=== PATIENT | male | born 1940 | race Caucasian/White ===

== ENCOUNTER 2024-10-15 11:19 | Inpatient (IN) | payer OTHER, SELFPAY ==
[2024-10-15] VITALS (13 sets, daily range): BP systolic 94–195; BP diastolic 53–100; BMI 27.1
--- NOTE | 2024-10-15 08:59 | ED.GENMED ---
History of Present Illness
General
Chief Complaint: Breathing Problem
Time Seen by Provider: 10/15/24 08:46
History of Present Illness
History of Present Illness:
84-year-old male with history of dementia, obstructive uropathy with chronic indwelling suprapubic catheter, CAD, hypertension, CVA with left-sided weakness presenting to the emergency department for apparent nausea and vomiting. Patient presents
by medics from nursing facility, was called for nausea and vomiting. On medics arrival, was noted to be hypoxic and tachycardic. They felt that he had bilateral wheezing, started him on DuoNebs. And route, on monitor, reading 'STEMI ', with
additional concern for cardiac event. For this reason medics had given aspirin. Patient on arrival is very limited historian. Patient only nodding yes and no to questioning. No additional history obtained at this time.
Phy Exam
Physical Exam
Physical Exam:
General: no clinical signs of dehydration, nontoxic and in no acute distress
HEENT: protecting airway
Neck: appears supple
CV: Tachycardic, regular rhythm, no evidence of cyanosis
Resp: Mild tachypnea tachypnea with active cough. Rhonchorous breath sounds bilaterally
Abd: Soft and non-distended, no tenderness to palpation
Extremities: No deformities, no swelling
Neuro: alert, not presently verbally communicating. Left upper and lower extremity weakness which is reported as chronic
: deferred
Rectal: deferred
Psych: Normal affect
Skin: Intact
Scores
Heart Failure Risk
Heart Failure Risk Score: Not Applicable
Sepsis
Sepsis Screening
Sepsis Assessment: Severe Sepsis
Sepsis Screening: Lactate >/=4mmol/L
Sepsis Screen
Sepsis Screen: Severe Sepsis
Date: 10/15/24
Time: 16:22
Course
Orders/Labs/Results
Orders:
Orders
10/15/24 08:47
EKG [Electrocardiogram (*1)] Urgent
Reason for Study: Tachycardia
EKG- Treatment ONCE
10/15/24 08:55
Cardiac Monitoring- Treatment ONCE
IV Insert/Care/Rem.- Treatment PRN
O2 Therapy [RESP] Urgent
Titrate/Wean O2 to maintain O2 sat greater than (%): 93
Special Instructions: TO MAINTAIN CONTINUOUS O2 SATS > OR = 93%
Pulse Ox/cont/shift [RESP] Urgent
Quantity: 1
Special Instructions: CONTINUOUS
10/15/24 08:57
COVID-19 Antigen Urgent
Source: Nasal Swab
Complete Blood Count/With Diff Urgent
Comprehensive Metabolic Panel Urgent
Lactic Acid Q4H
Comment: ON ICE, CANCEL 2ND ORDER IF FIRST LACTIC ACID LEVEL <2
Prothrombin Time Urgent
Urinalysis Reflex To Culture Urgent
Date Specimen was Collected: 10/15/24
Time Specimen was Collected: 08:55
Urine Microscopic Reflex Cult Urgent
Blood Culture Q20M
FEI Source: Blood/Venous
Specimen Description:
Comment: Urgent from separate sites. If patient screens positive for possible sepsis
Influenza A+B Rapid Molecular Urgent
FEI Source: Nasal Swab
Specimen Description:
Urine Culture Urgent
FEI Source: U
Specimen Description:
Date Specimen was Collected: 10/15/24
Time Specimen was Collected: 08:55
0.9% Sodium Chloride 1000 ml [Nss] 1,000 ml IV BOLUS
Acetaminophen [Tylenol/Feverall] 650 mg RECTAL NOW STA
10/15/24 08:58
CR Chest - 2 Views Urgent
Comment:
Reason For Exam: sepsis, hypoxia
10/15/24 09:05
Blood Culture Q20M
FEI Source: Blood/Venous
Specimen Description:
Comment: Urgent from separate sites. If patient screens positive for possible sepsis
10/15/24 09:46
CT Abd/pelvis W Iv Cont Urgent
Comment:
Reason For Exam: sepsis, N/V
10/15/24 09:53
Cefepime HCl [Maxipime] 2,000 mg IV NOW STA
10/15/24 Lunch
NPO
Allow oral meds: No
Allow clear liquids: No
10/15/24 10:10
Vancomycin [Vancocin] 2,000 mg 0.9% Sodium Chloride 500 ml [Nss] 500 ml IV NOW
10/15/24 10:11
0.9% Sodium Chloride 1000 ml [Nss] 1,000 ml IV BOLUS
10/15/24 11:09
Admit/Transfer Patient As Directed
Co-Sign Provider:
Level of Care: Inpatient admission
Assign to:: IMU- Intermediate Care
Physician / Group: Dr Anders
Diagnosis: Sepsis
Reason for Hospitalization: Sepsis
Expected length of stay greater than two midnights?: Yes
ELOS- Estimated Length of Stay in days: 2
I certify the patient meets the requirements for IP care: Yes
PRN Pain Medication Management As Directed
May give lesser potent ordered pain med per pt: Yes
preference::
Protocol:: Medication orders for pain may be administered in a
manner that supports deferring to patient preference
when the pt is:
- Requesting an ordered lesser potent pain medication.
Least to most potent pain medications are defined
as: acetaminophen < NSAID < tramadol < opioids
(morphine, oxycodone, hydromorphone).
- Requesting a lesser dose of the same medication IF
ORDERED.
- Requesting a less intrusive route of administration
if both routes are prescribed by the provider (PO <
IV).
10/15/24 11:10
Code Status As Directed
Resuscitation Status: Full Code
10/15/24 12:49
Lactic Acid Q4H
Comment: ON ICE, CANCEL 2ND ORDER IF FIRST LACTIC ACID LEVEL <2
10/15/24 15:00
Bisacodyl [Dulcolax] 10 mg RECTAL [id number] PRN
Docusate W/Senna [Senokot-S] 1 tablet PO BIDPRN PRN
Lactated Ringers [Lr] 1,000 ml IV 100 mls/hr
Polyethylene Glycol Powder [Miralax] 17 grams PO DAILYPRN PRN
10/15/24 15:00
Activity As Directed
Activity Level: Out of Bed-Early Mobility
Vital Signs As Directed
Frequency: Per unit guidelines
DX Deep Vein Thrombosis Video Routine
10/15/24 18:00
Enoxaparin Sodium [Lovenox] 40 mg SC QPM
10/16/24 06:00
Basic Metabolic Panel IN AM
Complete Blood Count/With Diff IN AM
Abnormal Lab Results
10/15/24
08:57
WBC 22.4 H 10^3/uL
(4.8-10.8)
RBC 4.14 L 10^6/uL
(4.70-6.10)
Hgb 12.4 L g/dL
(13.0-18.0)
Hct 37.8 L %
(39.0-52.0)
MCHC 32.8 L g/dL
(33.0-37.0)
Abs Immat Gran (auto) 0.3 H 10^3/uL
(0-0.05)
Absolute Neuts (auto) 19.9 H 10^3/uL
(1.4-6.5)
Absolute Lymphs (auto) 0.7 L 10^3/uL
(1.2-3.4)
Absolute Monos (auto) 1.5 H 10^3/uL
(0.1-0.6)
Immature Gran % 1.3 H %
(0-0.5)
Neutrophils % 88.6 H %
(42.2-75.2)
Lymphocytes % 3.1 L %
(20.5-51.1)
BUN 25 H mg/dl
(9-20)
Glucose 285 H mg/dl
(70-99)
Lactic Acid 4.9 H* mmol/L
(0.7-2.0)
AST 89 H U/L
(17-59)
ALT 83 H U/L
(0-50)
Alkaline Phosphatase 218 H U/L
(38-126)
Ur Occult Blood Reflex 4+ A
(Negative)
Leukocyte Esterase Rfl 3+ A
(Negative)
Urine RBC 26-30 A /HPF
(0-2)
Urine WBC (Reflex) 30-40 A /HPF
(0-5)
Urine Bacteria (Reflex) Many A
(Negative)
Urine Glucose 3+ A
(Negative)
Urine Albumin (Reflex) 3+ A
(Neg - Trace)
10/15/24 08:57
10/15/24 08:57
Vital Signs
Initial and Last Documented VS:
Initial Vital Signs
Temp Pulse Resp BP Pulse Ox
102.5 F H 132 28 195/77 91
10/15/24 08:44 10/15/24 08:44 10/15/24 08:44 10/15/24 08:44 10/15/24 08:44
Last Documented Vital Signs
Temp Pulse Resp BP Pulse Ox
98.6 F 86 17 141/63 97
10/15/24 15:24 10/15/24 15:30 10/15/24 15:30 10/15/24 14:00 10/15/24 14:30
MDM/Problems Addressed
MDM/Problems Addressed:
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 Vital signs on arrival significant for hypertension,
hypoxia, tachycardia, fever.
On exam patient is in no significant distress, however is hypoxic, requiring supplemental O2. Patient also with active dry cough. Vital signs are meeting SIRS criteria with suspected source of infection being pulmonary given coughing and hypoxia.
Will send viral swabs and obtain chest x-ray imaging. IV access obtained, will send cultures and lactic acid. Will start patient IV fluids. Patient has an indwelling suprapubic catheter, additional hospital source of infection. Catheter was
exchanged for a new catheter. Will obtain urine specimen from new catheter. Prehospital noted to have nausea and vomiting and concern of abdominal distention. No tenderness to the abdomen, no present emesis. Lower suspicion for intra-abdominal
source. Medics were also concerned that patient was having a 'STEMI '. EKG obtained immediately upon patient's arrival, sinus tachycardia without STEMI criteria. Lower suspicion at this time.
09:40 -patient with significant leukocytosis and lactic acid of 4.9. Viral swabs are negative and chest x-ray without acute cardiopulmonary disease. Unclear source of infection at this time. Due to prehospital nausea and vomiting and elevated
lactic acid, will obtain CT abdominal imaging to rule out intra-abdominal source of infection. Will start broad spectrum abx.
10:50 -CT shows constipation with some rectal wall thickening, otherwise no acute abnormality. Urine does show some signs of infection. Plan for admission for sepsis, possible urinary source. called and updated
*EKG
Interpreted by ED Provider?: Yes
EKG Intrepretation Date: 10/15/24
EKG Intrepretation Time: 09:04
Interpretation: abnormal
Comparison EKG: no comparison EKG present
Heart Rate: 132
Rate: tachycardiac
Rhythm: sinus
[place]: normal axis
Interval: normal interval
QRS Pattern: right bundle branch block and other (Left anterior fascicular block)
Ischemia: non-specific ST changes
*Critical Care Note
Total Time (30-74mins, 75-104mins- exclusive of procedures): Not Applicable
ED Attending Note
-
Portions of this chart may have been created with voice recognition software.� Occasional wrong word or��sound alike� substitutions may have occurred due to the inherent limitations of voice recognition software.
Discharge Plan
Departure
Patient Disposition: Admit
Date of Disposition: 10/15/24
Time of Disposition: 11:05
Presentation/result/management discussed w/ accepting MD/DO: Hospitalist
Patient with high blood pressure during this ER visit?: Yes
Condition: Fair
Discharge Problem:
Severe sepsis, Urinary tract infection
Interventions
Interventions:
*Risk Screen - Suicide Last Done: 10/15/24 08:44
*General Assessment Last Done: 10/15/24 08:44
*Neglect/Abuse Screening Last Done: 10/15/24 08:44
*ED- Fall Risk Assessment Last Done: 10/15/24 08:44
*ED COVID-19 Vaccine History Last Done: 10/15/24 08:44
*Nursing Disposition Last Done: 10/15/24 14:35
ED- Cardiac Assessment Last Done: 10/15/24 09:51
ED- Pulmonary Assessment Last Done: 10/15/24 09:51
Discharge Date and Time
Discharge Date/Time: 10/15/24 14:35
[2024-10-15 09:11] LABS: % Basophils 0.4 % (0-2); % Immature Granulocytes 1.3 % (0-0.5); % Lymphocytes 3.1 % (20.5-51.1); % Monocytes 6.6 % (1.7-9.3); % Neutrophils 88.6 % (42.2-75.2); Absolute Basophils 0.1 10^3/uL (0-0.2); Absolute Immature Granulocytes 0.3 10^3/uL (0-0.05); Absolute Lymphocytes 0.7 10^3/uL (1.2-3.4); Absolute Monocytes 1.5 10^3/uL (0.1-0.6); Absolute Neutrophils 19.9 10^3/uL (1.4-6.5); Hematocrit 37.8 % (39.0-52.0); Hemoglobin 12.4 g/dL (13.0-18.0); Mean Corp Hgb Conc. 32.8 g/dL (33.0-37.0); Mean Corpuscular Volume 91.3 fL (80.0-94.0); Mean Platelet Volume 9.5 fL (7.4-10.4); Nucleated Red Blood Cells % 0 % (-); Platelet Count 264 10^3/uL (130-400); Red Blood Cell Count 4.14 10^6/uL (4.70-6.10); Red Cell Dist. Width 14.5 % (11.5-14.5); White Blood Cell Count 22.4 10^3/uL (4.8-10.8)
[2024-10-15 09:23] LABS: AST (SGOT) 89 U/L (17-59); Albumin 3.8 g/dl (3.5-5.0); Alkaline Phosphatase 218 U/L (38-126); Blood Urea Nitrogen 25 mg/dl (9-20); Calcium 9.2 mg/dl (8.4-10.2); Carbon Dioxide 23 mmol/L (22-30); Chloride 104 mmol/L (98-107); Estimated Creatinine Clearance 48 ml/min; Glucose 285 mg/dl (70-99); INR 1.05; PT 14.1 Sec (11.4-14.6); Potassium 4.7 mmol/L (3.5-5.1); Sodium 142 mmol/L (135-145); Total Bilirubin 1.1 mg/dl (0.2-1.3); eGFR > 60.00
[2024-10-15 09:24] LABS: Lactic Acid 4.9 mmol/L (0.7-2.0)
[2024-10-15] MEDS: TYLENOL/FEVERALL 650 MG RECTAL (09:27)
[2024-10-15] MEDS: NSS 1000 IV ×2 (09:27→10:29)
[2024-10-15 09:33] LABS: COVID-19 Antigen Negative (Negative)
[2024-10-15] MEDS: MAXIPIME 2000 MG IV (10:24)
[2024-10-15 10:25] LABS: ALT (SGPT) 83 U/L (0-50)
[2024-10-15 10:47] LABS: Urine Albumin 3+ (Neg - Trace); Urine Bilirubin Negative (Negative); Urine Character Slightly Cloudy (Clear); Urine Color Yellow; Urine Glucose 3+ (Negative); Urine Ketone Negative (Negative); Urine Leukocyte 3+ (Negative); Urine Nitrite Negative (Negative); Urine Occult Blood 4+ (Negative); Urine Specific Gravity 1.025 (<1.030); Urine Urobilinogen 1+ (Neg - 1+)
[2024-10-15 10:58] LABS: Urine Urothelial Cell 0-2 /LPF (FEW)
[2024-10-15 11:04] LABS: Urine Bacteria Many (Negative); Urine Red Blood Cell 26-30 /HPF (0-2); Urine White Cell 30-40 /HPF (0-5)
[2024-10-15] MEDS: VANCOCIN 540 MG IV (11:12)
--- NOTE | 2024-10-15 11:12 | HPS.HSE ---
Family Physician
-
Family Physician: Kimberli Burrell
Chief Complaint
-
ams
History of Present Illness
Patient 84 years old male history of hypertension, CVA, dementia, longterm resident, came into the hospital with nausea and vomiting and altered mental status. Unable to obtain accurate information from patient due to his mental status. He is
febrile, hypertensive, tachycardic. Patient had a white count of 22,000, lactic acid of 4.9, elevated LFTs, neutrophil 88%, CT scan of the abdomen large volume stool and possible mild rectal wall thickening; chest x-ray no acute chest pathology; he
has a suprapubic catheter and urinalysis abnormal with 30-40 WBC count, many urine bacteria, leukocyte esterase 3+, urine RBC 26-30, many urine bacteria. Suprapubic catheter changed in the ED. Given broad-spectrum antibiotics in the ED. He was
referred to hospitalist for further evaluation.
Medical History
Past Medical History
Past Medical History: Reports Other (hypertension, CVA, dementia, dyslipidemia, depression.)
Past Surgical History: Reports Cholecystectomy
Social History
Unable to obtain full social history at this time due to: Dementia
Family History
Family History: Not pertinent
Allergies / Home Medications
Allergies reflects when Allergies were last updated in [facility].
Home Medications with original date entered in [facility]
Allergy/Medication List:
Allergies
Allergy/AdvReac Type Severity Reaction Status Date / Time
No Known Allergies Allergy Unverified 10/15/24 08:45
Home Medications
acetaminophen 325 mg tablet (Tylenol) 650 mg PO Q6HPRN PRN MILD PAIN 10/15/24
atorvastatin 20 mg tablet (Lipitor) 20 mg PO HS 10/15/24
bisacodyl 10 mg rectal suppository (Dulcolax (bisacodyl)) 10 mg [place] [id number] PRN IF NO BM BY 12 SHIFTS 10/15/24
clopidogrel 75 mg tablet (Plavix) 75 mg PO DAILY 10/15/24
diclofenac sodium 1 % topical gel 0 g topical BID left lower hip and back 10/15/24
duloxetine 60 mg capsule,delayed release (Cymbalta) 60 mg PO DAILY 10/15/24
ergocalciferol (vitamin D2) 1,250 mcg (50,000 unit) capsule 1,250 mcg PO QMONTH 10/15/24
gabapentin 100 mg capsule 100 mg PO BID 10/15/24
levetiracetam 750 mg tablet (Keppra) 750 mg PO BID 10/15/24
magnesium hydroxide 400 mg/5 mL oral suspension (Milk of Magnesia) 2,400 mg PO Q36H PRN IG NO BM BY 3RD DAY 10/15/24
magnesium oxide 400 mg PO DAILY 10/15/24
melatonin 3 mg tablet 3 mg PO HS 10/15/24
polyethylene glycol 3350 17 gram oral powder packet (Miralax) 17 g PO DAILY 10/15/24
quetiapine 25 mg tablet (Seroquel) 25 mg PO HS 10/15/24
sennosides 8.6 mg tablet (senna) 17.2 mg PO HS 10/15/24
sodium phosphates 19 gram-7 gram/118 mL enema (Fleet Enema) 118 ml [place] Q36H PRN CONSTIPATION 10/15/24
valsartan 80 mg tablet 80 mg PO DAILY 10/15/24
Review of Systems
-
Unable to obtain full review of systems at this time due to: Dementia
Physical Exam
Vital Signs
Vital Signs
Temp Pulse Resp BP Pulse Ox
102.5 F H 117 28 156/67 97
10/15/24 08:44 10/15/24 09:35 10/15/24 08:44 10/15/24 09:35 10/15/24 09:35
Physical exam:
General: Acutely ill. Toxic appearance
HEENT: Normocephalic, Atraumatic and Moist Mucous Membranes
Respiratory: Clear to Auscultation; Negative Wheezes, Rales or Rhonchi
Cardiac: Regular Rhythm and S1/S2
GI: Soft, mild suprapubic tenderness and Nondistended
Musculoskeletal: No Clubbing, No Cyanosis and No Edema
Neuro: Awake, Alert and left hemiparesis
Psych: Calm
Physical Exam
General: Other
Laboratory Results
-
10/15/24 08:57
10/15/24 08:57
Laboratory Results
PT 14.1 Sec (11.4-14.6) 10/15/24 08:57
INR 1.05 10/15/24 08:57
Lactic Acid 4.9 mmol/L (0.7-2.0) H* 10/15/24 08:57
Total Bilirubin 1.1 mg/dl (0.2-1.3) 10/15/24 08:57
AST 89 U/L (17-59) H 10/15/24 08:57
ALT 83 U/L (0-50) H 10/15/24 08:57
Alkaline Phosphatase 218 U/L (38-126) H 10/15/24 08:57
Data Reviewed
-
CT Scan: Image Personally Visualized and interpreted
Lab Data: Labs Reviewed by me
Impression/Plan
-
IMPRESSION:
Patient 84 years old male with multiple comorbidities presented to the hospital with febrile illness and lactic acidosis consistent with sepsis. Patient at increased risk of morbidity and mortality therefore he will need to be treated in the
hospital and monitor accordingly.
PLAN:
Sepsis:
Sepsis due to possible catheter associated UTI but rule out other sources as well
Evidence of sepsis with toxic appearance, fever 102.5 Fahrenheit, tachycardia 117, tachypnea 28, leukocytosis >22,000, and source of infection likely UTI
Lactic acid of 4.9
Follow-up blood cultures
Follow-up urine culture
Follow-up sputum culture
CXR no acute chest pathology
U/A abnormal
Continue on broad-spectrum antibiotics of Zosyn (given cefepime and vancomycin in the ED)
Continue monitor WBC count and temperature curve.
Stercoral colitis:
Aggressive bowel regimen with milk of molasses enemas every 8 hours for 24 hours
Antibiotics to avoid translocation of bacteria in the GI tract
Toxic metabolic encephalopathy:
Likely related to sepsis
N.p.o. and speech therapy eval-->start diet when cleared by speech therapy
Monitor mental status closely
Hypoxia:
Likely atelectasis and sepsis related
Oxygen supplementation
Incentive spirometer
Chest x-ray seen and clear
CVA with left hemiparesis:
Resume oral medications when able to take oral
Hypertension:
IV hydralazine as needed
Elevated LFTs:
Monitor trend
History of prior cholecystectomy
Check ultrasound of right upper quadrant
Hyperglycemia:
Insulin sliding scale
Check hemoglobin A1c
DVT prophylaxis:
Lovenox SQ
CODE STATUS:
Full code
Time spent 75 minutes
[2024-10-15] MEDS: NOVOLOG FLEXPEN-MODERATE RESISTANCE SC (13:12)
[2024-10-15 13:32] LABS: Lactic Acid 4.8 mmol/L (0.7-2.0)
[2024-10-15] MEDS: ZOSYN 50 IV ×2 (13:53→18:45)
--- NOTE | 2024-10-15 13:58 | PTOTSP ---
Speech Therapy Swallowing Assessment
Patient with intermittent signs of oral/pharyngeal dysphagia with an elevated risk for aspriation given current acute illness and cognitive deficits.
Recommend
1. IDDSI 6 (soft and bite-sized) and thin liquids
2. Meds whole in applesauce.
3. Assist with set up and intermittent supervision to ensure appropriate amount and rate of intake.
4. Assist with oral care 3x/daily.
ST will follow up to ensure diet tolerance and/or need for instrumental testing.
[2024-10-15 15:34] LABS: Glucose - Point of Care 236 mg/dl (70-99)
--- NOTE | 2024-10-15 15:57 | PTCARENOTE ---
Received patient from ED on stretcher. Patient left side flacid from old stroke. Assistance x3 to lime puller to stretcher. Patient had two large loose liquid BM's while getting him settled. Pulse ox 96% on 3L o2. Lungs diminished with expiratory
wheezing throughout. VS stable. Patient awake and alert. NINILCHIK with only one hearing aide. Oriented patient to room. Wilkl monitor.
[2024-10-15] MEDS: LR 1000 IV (16:01)
[2024-10-15] MEDS: NOVOLOG FLEXPEN-MODERATE RESISTANCE 3 UNITS SC (18:42)
[2024-10-15] MEDS: LOVENOX 40 MG SC (18:44)
[2024-10-15] MEDS: MAGNESIUM OXIDE 500 MG PO (18:45)
[2024-10-15] MEDS: MIRALAX 17 GRAMS PO (18:45)
[2024-10-15] MEDS: DIOVAN 80 MG PO (18:45)
[2024-10-15] MEDS: MELATONIN 3 MG PO (20:11)
[2024-10-15] MEDS: KEPPRA 750 MG PO (20:11)
[2024-10-15] MEDS: SENOKOT 17.2 MG PO (20:11)
[2024-10-15] MEDS: SEROQUEL 25 MG PO (20:12)
[2024-10-15] MEDS: NEURONTIN 100 MG PO (20:12)
[2024-10-15 21:54] LABS: Glucose - Point of Care 248 mg/dl (70-99)
[2024-10-15 23:17] LABS: Lactic Acid 2.7 mmol/L (0.7-2.0)
[2024-10-16] VITALS (23 sets, daily range): BP systolic 78–188; BP diastolic 54–94; BMI 27.5
[2024-10-16] MEDS: LR 1000 IV (01:11)
[2024-10-16] MEDS: ZOSYN 50 IV ×4 (01:11→17:26)
[2024-10-16 04:22] LABS: Hematocrit 33.7 % (39.0-52.0); Hemoglobin 11.7 g/dL (13.0-18.0); Mean Corp Hgb Conc. 34.7 g/dL (33.0-37.0); Mean Corpuscular Hgb 30.7 pg (27.0-31.0); Mean Corpuscular Volume 88.5 fL (80.0-94.0); Red Blood Cell Count 3.81 10^6/uL (4.70-6.10); Red Cell Dist. Width 14.3 % (11.5-14.5); White Blood Cell Count 11.5 10^3/uL (4.8-10.8)
[2024-10-16 04:26] LABS: % Basophils 0.4 % (0-2); % Eosinophils 1.1 % (0-6); % Immature Granulocytes 0.4 % (0-0.5); % Neutrophils 83.1 % (42.2-75.2); Absolute Basophils 0.1 10^3/uL (0-0.2); Absolute Eosinophils 0.1 10^3/uL (0-0.7); Absolute Immature Granulocytes 0.1 10^3/uL (0-0.05); Absolute Lymphocytes 0.6 10^3/uL (1.2-3.4); Absolute Monocytes 1.2 10^3/uL (0.1-0.6); Absolute Neutrophils 9.5 10^3/uL (1.4-6.5); Nucleated Red Blood Cells % 0 % (-)
[2024-10-16 04:47] LABS: Lactic Acid 3.5 mmol/L (0.7-2.0)
[2024-10-16 04:50] LABS: ALT (SGPT) 65 U/L (0-50); AST (SGOT) 58 U/L (17-59); Albumin 2.9 g/dl (3.5-5.0); Alkaline Phosphatase 164 U/L (38-126); Blood Urea Nitrogen 24 mg/dl (9-20); Calcium 8.5 mg/dl (8.4-10.2); Carbon Dioxide 17 mmol/L (22-30); Chloride 107 mmol/L (98-107); Direct Bilirubin 0.5 mg/dl (0.0-0.4); Estimated Creatinine Clearance 59 ml/min; Glucose 162 mg/dl (70-99); Potassium 4.7 mmol/L (3.5-5.1); Sodium 137 mmol/L (135-145); Total Protein 5.7 g/dl (6.3-8.2); eGFR > 60.00
[2024-10-16] MEDS: TYLENOL 650 MG PO (05:38)
--- NOTE | 2024-10-16 06:22 | PTCARENOTE ---
Patient having water bm's overnight, 6-7 since start of shift. Patient with stg 2 to sacrum, unable to dress as patient has frequent watery bm's. Patient is aao x1 to self, affect pleasant, slow to respond. Patient takes pills in apple sauce without
difficulty, however had some coughing with Tylenol ordered for temp of 100.0. Patient with left sided weakness r/to hx of cva. Patient is in NSR with BBB. Earlier this am patient became tachycardic to the 150's. RN obtained EKG and notified Alfonzo
JENNIFER Avendaño. Patient ordered enema's q8 hours, last enema administered around 0230am.
Patient receiving LR at 100ml/hr, and Zoysn q6 via right ac IV. Barrier ointment applied to sacrum, buttock, scrotum and perineum. Will continue to monitor patient closely.
[2024-10-16 07:31] LABS: Lactic Acid 1.7 mmol/L (0.7-2.0)
[2024-10-16 07:52] LABS: Magnesium 1.9 mg/dl (1.6-2.3)
[2024-10-16 08:27] LABS: Glucose - Point of Care 174 mg/dl (70-99)
[2024-10-16 09:11] LABS: Glycohemoglobin (HgbA1c) 6.8 % (4.0-5.6)
--- NOTE | 2024-10-16 09:20 | PTCARENOTE ---
Pt having burst of tachycardia, 140's-160's. Dr Anders made aware. EKG done. Pt Asymptomatic at this time with no complaints.
--- NOTE | 2024-10-16 09:37 | W.PN.HOSP.TC ---
Addendum entered and electronically signed by Shayan Anders MD 10/16/24 15:10:
Discussed with family and AED will be tapered down and then d/c completely while here since no evidence for such per family and they also discussed with SNF staff.
Original Note:
Today's Communication/Plan
-
Antibiotics. ID eval
Assessment / Plan
Assessment / Plan
Physical exam:
General: Acutely ill.
HEENT: Normocephalic, Atraumatic and Moist Mucous Membranes
Respiratory: Bilateral scattered wheezes; Negative Rales or Rhonchi
Cardiac: Regular Rhythm, tachycardic, and S1/S2
GI: Soft, mild suprapubic tenderness and mild distended
Musculoskeletal: No Clubbing, No Cyanosis and trace bilateral lower extremity edema
Neuro: Awake, Alert and left hemiparesis
Psych: Calm
A/P:
Sepsis:
Sepsis due to possible catheter associated UTI but rule out other sources as well
Evidence of sepsis with toxic appearance, fever 102.5 Fahrenheit, tachycardia 117, tachypnea 28, leukocytosis >22,000, and source of infection suspected UTI
Lactic acid of 4.9--> down to 1.7
Blood cultures and urine cultures positive awaiting for final identification
Continue on broad-spectrum antibiotics of Zosyn (given cefepime and vancomycin in the ED)
Continue monitor WBC count and temperature curve.
WBC 22--> down to 11.5
ID consult for further advice
Updated daughter over the phone today on 10/16
Stercoral colitis:
Aggressive bowel regimen with milk of molasses enemas every 8 hours for 24 hours and then oral bowel regimen
Toxic metabolic encephalopathy:
Likely related to sepsis
start diet by speech therapy
Monitor mental status closely
Hypoxia:
Likely atelectasis and sepsis related
DuoNeb as needed
Oxygen supplementation
Incentive spirometer
Chest x-ray seen and clear and repeated today with some atelectasis
Sinus tachycardia:
Due to current acute illness
Some episodes possible SVT--> continue cardiac monitoring and obtain twelve-lead EKG when episode recurs
CVA with left hemiparesis:
Continue Plavix
Dementia, probable vascular:
As per family's dementia is mild. Of note he is hard of hearing and he is hearing aids are out of battery and they are trying to work on that.
Hypertension:
IV hydralazine as needed
Oral Diovan with holding parameters
Probable seizure disorder:
Family is unaware that he has history of seizure
Continue Keppra for now
Hyperlipidemia:
Hold statin due to elevated LFTs
Elevated LFTs:
Monitor trend
History of prior cholecystectomy
Checked ultrasound of right upper quadrant and unremarkable
Hyperglycemia:
Insulin sliding scale
Check hemoglobin A1c 6.8
DVT prophylaxis:
Lovenox SQ
CODE STATUS:
Full code
Total time spent on today's encounter was 52 minutes which included time spent in counseling the patient/family regarding diagnosis and treatment plan as listed above, goals of care, and symptom management. Case was discussed with nursing staff,
specialists, and care coordinators/case management. All labs and imaging personally reviewed by me. Remainder the time spent in detailed review of previous records, lab data, imaging, and other medical provider documentation.
Anticipated Discharge: > 48 hours
Subjective/Interval History
-
Date of Service: October 16, 2024
Patient tachycardic, short of breath. Afebrile. Not much information from patient
Objective Data
-
Labs:
Laboratory Results
10/16/24
04:00
WBC 11.5 H
Hgb 11.7 L
Hct 33.7 L
Plt Count
Sodium 137
Potassium 4.7
Chloride 107
Carbon Dioxide 17 L
BUN 24 H
Creatinine 0.9
Glucose 162 H
Calcium 8.5
Total Bilirubin 1.0
AST 58
ALT 65 H
Alkaline Phosphatase 164 H
Vital Signs:
Vital Signs
Temp Pulse Resp BP Pulse Ox
98.6 F 103 23 104/71 99
10/16/24 08:02 10/16/24 07:38 10/16/24 07:38 10/16/24 07:38 10/16/24 06:30
I&O
10/15/24 10/16/24 10/17/24
06:59 06:59 06:59
Intake Total 2660 / 2660
Output Total 1340 / 1340
Balance 1320 / 1320
[2024-10-16] MEDS: MAGNESIUM OXIDE 500 MG PO (10:02)
[2024-10-16] MEDS: MIRALAX 17 GRAMS PO (10:02)
[2024-10-16] MEDS: PLAVIX 75 MG PO (10:02)
[2024-10-16] MEDS: KEPPRA 750 MG PO (10:02)
[2024-10-16] MEDS: DIOVAN 80 MG PO (10:02)
[2024-10-16] MEDS: NEURONTIN 100 MG PO ×2 (10:02→21:18)
[2024-10-16] MEDS: CYMBALTA DELAYED RELEASE 60 MG PO (10:02)
[2024-10-16] MEDS: NOVOLOG FLEXPEN-MODERATE RESISTANCE 1 UNITS SC ×3 (10:03→17:55)
--- NOTE | 2024-10-16 12:24 | CM ---
Patient from [facility] with Hx CVA with left hemiparesis, dementia, suprapubic cath with Dx sepsis, likely UTI, colitis, TME. O2 2L 10/15/24. ST Eval- dysphagia diet.
Spoke with Carol, [facility];
the patient resides there in LTC on an IA bed hold.
He was A/O x3, slightly forgetful, conversant.
The patient is assisted with ADLs.
He is w/c bound with marcella lift for transfers.
The patient likes to stay in bed.
He was not getting PT/OT.
The patient is able to feed himself.
He was not on O2 and has no DME.
The daughter Arelis is the contact as the Kalani is anxious.
Carol agrees patient does not need PT/OT, and does not need SNF auth unless IV Abx are needed.
Carol needs to be contacted before patient's return and is available over the weekend on her cell phone.
The ph for report [phone], fax [phone].
Plan return to [facility] when medically ready.
[2024-10-16 12:27] LABS: Glucose - Point of Care 187 mg/dl (70-99)
--- NOTE | 2024-10-16 14:37 | CON.ID ---
Consultation
-
Date/Time Consultation Requested: October 16, 2024 1406
Date/Time Consultation Performed: October 16, 2024 1440
Requesting Provider: Dr. Shayan Anders
Performing Provider: Dr. Caitlin Armenta
Reason for Consultation: Bacteremia
Chief Complaint / Past History
Chief Complaint
Decreased mental status
History of Present Illness
84-year-old male from [facility] with history of CVA, left hemiparesis, neurogenic bladder with chronic suprapubic catheter who presented to the ED October 15 due to change in mental status, nausea and vomiting. In the ED temperature
102.5, white count of 22.4, lactic acid 4.9, patient was hypoxic. CT of the abdomen pelvis shows large volume stool with distended rectum. Initial chest x-ray clear. Repeat chest x-ray today shows a right lower lobe opacity. Urine analysis 30-40
white blood cells, urine culture gram-negative antoni. Blood culture 1 out of 4 bottles in anaerobic bottle positive for gram-negative bacilli. He is currently on Zosyn. Patient reports now he is having multiple stools with the molasses enema. He
denies abdominal pain. He did have fevers and chills. No headache. Mild cough. Denies shortness of breath. No bladder pain. He reports no recurrent UTIs.
Past History
Additional Past Medical History:
Dementia
CVA with left hemiparesis
Hypertension
HLD
Depression
Neurogenic bladder with chronic suprapubic catheter
Cholecystectomy
SNF resident
Allergy History:
No Known Allergies Allergy (Unverified 10/15/24 08:45)
Medications Reviewed: Yes
Current Antibiotics:
Zosyn d2
Social History
Tobacco: Non-Smoker
Alcohol: None
Drug: None
Living: [facility]
Family History
Family History: Not Pertinent
Review of Systems
Review of Systems
General: Fever, Chills and Change in Appetite
HEENT: Negative Sinus Problems, Headache or Pharyngitis
Cardiovascular: Negative Chest Pain
Respiratory: Cough; Negative Dyspnea
Gasteroenterology: Nausea and Vomiting; Negative Diarrhea
Genital / Urological: Negative Flank Pain
Endocrine: Weakness
Neurological: Negative Dizziness
All systems: All other systems were reviewed and were negative
Vital Signs
Temp Pulse Resp BP Pulse Ox
98.4 F 87 23 156/67 98
10/16/24 11:36 10/16/24 10:02 10/16/24 07:38 10/16/24 10:02 10/16/24 12:49
Selected Entries
10/15/24
08:44
Temp 102.5 F H
Physical Exam
Physical Exam
Constitutional: No Acute Distress, Chronically Ill and Non-toxic
Head: Other (No frontal or max or sinus tenderness)
Eyes: No Conjunctival Hemorrhage and Sclera Anicteric
Cardiovascular: Regular Rate and S1/S2
Pulmonary: Rales (Right base)
Gastrointestinal: Soft, Non Tender, Non Distended and Normal Bowel Sounds
Genito-Urinary: Clear Urine (Suprapubic catheter); Negative CVA Tenderness
Extremities: Negative Edema
Neurological: Awake and Alert; Negative Meningeal Signs
Lab / Diagnostic Study Results
10/16/24 04:00
10/16/24 04:00
Abs Immat Gran (auto) 0.1 10^3/uL (0-0.05) H 10/16/24 04:00
Absolute Neuts (auto) 9.5 10^3/uL (1.4-6.5) H 10/16/24 04:00
Absolute Lymphs (auto) 0.6 10^3/uL (1.2-3.4) L 10/16/24 04:00
Absolute Monos (auto) 1.2 10^3/uL (0.1-0.6) H 10/16/24 04:00
Absolute Basos (auto) 0.1 10^3/uL (0-0.2) 10/16/24 04:00
Immature Gran % 0.4 % (0-0.5) 10/16/24 04:00
Neutrophils % 83.1 % (42.2-75.2) H 10/16/24 04:00
Lymphocytes % 5.0 % (20.5-51.1) L 10/16/24 04:00
Monocytes % 10.0 % (1.7-9.3) H 10/16/24 04:00
Eosinophils % 1.1 % (0-6) 10/16/24 04:00
Basophils % 0.4 % (0-2) 10/16/24 04:00
PT 14.1 Sec (11.4-14.6) 10/15/24 08:57
INR 1.05 10/15/24 08:57
Lactic Acid 1.7 mmol/L (0.7-2.0) 10/16/24 07:11
Ur Squamous Epith Cells 6-10 /LPF (Few) 10/15/24 08:57
Microbiology Results
Micro:
10/15/24 08:57 Blood Culture - Preliminary
Blood/Venous Positive culture in progress
Gram Stain - Preliminary
10/15/24 08:57 Urine Culture - Preliminary
Urine Gram negative bacilli
10/15/24 09:05 Blood Culture - Preliminary
Blood/Venous No Growth in 24 hours- Final report to follow
10/15/24 08:57 Influenza Types A & B (SALUD) - Final
Nasal Swab Negative for Influenza A & B, NAAT
Negative results must be combined with clinical observations
and patient history.
Nucleic Acid Amplification test (NAAT)performed on the
[employer] NOW platform.
10/16/24 CXR: There is a new right basilar airspace opacity which may represent pneumonitis/pneumonia or atelectasis.
10/16/24 ABD US: Prior cholecystectomy without evidence of biliary duct dilation. Hepatic steatosis.
10/15/24 CT a/p: Large volume stool filling and mildly distending the rectum with some possible mild rectal wall thickening.. Findings could represent mild stercoral colitis. An catheter/balloon within an empty urinary bladder, evaluation markedly
limited.
Assessment / Plan
# RLL PNA
# GNR bacteremia, 1 (anaerobic) of 4 bottles
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
# Severe sepsis: fever, leukocytosis, elev lactic acid
# Constipation with mild rectal stercoral colitis
- Bacteremia source from lungs vs abd vs urine
- Await identification of organisms.
- Agree with Zosyn for now
- Trend temperature, white count
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
Dementia
CVA with left hemiparesis
Hypertension
HLD
Depression
Neurogenic bladder with chronic suprapubic catheter
Cholecystectomy
SNF resident
[2024-10-16] MEDS: DUPHALAC/CHRONULAC 20 GRAMS PO (15:56)
[2024-10-16] MEDS: LOVENOX 40 MG SC (17:26)
[2024-10-16 17:55] LABS: Glucose - Point of Care 196 mg/dl (70-99)
[2024-10-16 18:01] LABS: NT-proBNP 1060 pg/ml
--- NOTE | 2024-10-16 18:38 | PTCARENOTE ---
Milk of molasses enema administered @ 1130 with small return of solid BM and large amount of liquid stool; Pt to receive milk of molasses enemas at 1930 and 0330 to complete treatment. Pt incontinent of liquid stool throughout shift. Pt denies
pain; Will continue to monitor and assess.
[2024-10-16] MEDS: FLORASTOR PO (21:00)
[2024-10-16] MEDS: KEPPRA 500 MG PO (21:18)
[2024-10-16] MEDS: FLORASTOR 250 MG PO (21:19)
[2024-10-16] MEDS: MELATONIN 3 MG PO (21:19)
[2024-10-16] MEDS: SEROQUEL 25 MG PO (21:19)
[2024-10-16] MEDS: SENOKOT 17.2 MG PO (21:19)
[2024-10-16] MEDS: APRESOLINE 10 MG IV (21:32)
[2024-10-16 22:05] LABS: Glucose - Point of Care 166 mg/dl (70-99)
[2024-10-16] MEDS: DUONEB 3 ML INH (22:55)
[2024-10-17] VITALS (26 sets, daily range): BP systolic 96–173; BP diastolic 31–150; BMI 27.0
[2024-10-17] MEDS: ZOSYN 50 IV ×5 (00:07→23:06)
--- NOTE | 2024-10-17 01:08 | PTCARENOTE ---
Assumed care of pt from chrissy RN. Pt aaox1 to self with expressive aphasia. Sinus tach on monitor. 94% on RA. TOYIN medications administered (see AUG) and enema which resulted in a large loose BM with adequate relief. Hygiene completed. Pt resting
in bed with call lanza in reach.
[2024-10-17 05:44] LABS: ALT (SGPT) 49 U/L (0-50); AST (SGOT) 38 U/L (17-59); Albumin 2.6 g/dl (3.5-5.0); Alkaline Phosphatase 143 U/L (38-126); Blood Urea Nitrogen 27 mg/dl (9-20); Calcium 8.4 mg/dl (8.4-10.2); Carbon Dioxide 24 mmol/L (22-30); Chloride 105 mmol/L (98-107); Estimated Creatinine Clearance 59 ml/min; Glucose 164 mg/dl (70-99); Potassium 3.6 mmol/L (3.5-5.1); Sodium 137 mmol/L (135-145); Total Bilirubin 0.8 mg/dl (0.2-1.3); Total Protein 5.2 g/dl (6.3-8.2); eGFR > 60.00
[2024-10-17 07:42] LABS: Glucose - Point of Care 153 mg/dl (70-99)
[2024-10-17] MEDS: NOVOLOG FLEXPEN-MODERATE RESISTANCE 300 UNITS SC ×2 (08:02→12:26)
[2024-10-17] MEDS: DIOVAN 80 MG PO (08:03)
[2024-10-17] MEDS: CYMBALTA DELAYED RELEASE 60 MG PO (08:03)
[2024-10-17] MEDS: FLORASTOR 250 MG PO ×2 (08:06→20:31)
[2024-10-17] MEDS: DUPHALAC/CHRONULAC 20 GRAMS PO (08:06)
[2024-10-17] MEDS: MIRALAX 17 GRAMS PO (08:07)
[2024-10-17] MEDS: MAGNESIUM OXIDE 500 MG PO (08:07)
[2024-10-17] MEDS: KEPPRA 500 MG PO (08:07)
[2024-10-17] MEDS: PLAVIX 75 MG PO (08:08)
[2024-10-17] MEDS: NEURONTIN 100 MG PO ×2 (08:08→20:31)
[2024-10-17 08:29] LABS: Hematocrit 29.4 % (39.0-52.0); Mean Corpuscular Volume 88.3 fL (80.0-94.0); Red Blood Cell Count 3.33 10^6/uL (4.70-6.10); Red Cell Dist. Width 14.1 % (11.5-14.5); White Blood Cell Count 11.2 10^3/uL (4.8-10.8)
[2024-10-17 08:49] LABS: % Basophils 0.4 % (0-2); % Eosinophils 1.4 % (0-6); % Immature Granulocytes 0.6 % (0-0.5); % Lymphocytes 8.4 % (20.5-51.1); % Monocytes 10.9 % (1.7-9.3); % Neutrophils 78.3 % (42.2-75.2); Absolute Basophils 0.1 10^3/uL (0-0.2); Absolute Eosinophils 0.2 10^3/uL (0-0.7); Absolute Immature Granulocytes 0.1 10^3/uL (0-0.05); Absolute Lymphocytes 0.9 10^3/uL (1.2-3.4); Absolute Monocytes 1.2 10^3/uL (0.1-0.6); Absolute Neutrophils 8.7 10^3/uL (1.4-6.5); Mean Platelet Volume 9.8 fL (7.4-10.4); Nucleated Red Blood Cells % 0 % (-); Platelet Count 198 10^3/uL (130-400)
--- NOTE | 2024-10-17 08:53 | W.PN.HOSP.TC ---
Addendum entered and electronically signed by Shayan Anders MD 10/17/24 14:24:
Patient with stage 2 pressure injury to sacrum, POA
Original Note:
Today's Communication/Plan
-
IV antibiotics. Oxygen weaning. PT eval
Assessment / Plan
Assessment / Plan
Physical exam:
General: Acutely ill.
HEENT: Normocephalic, Atraumatic and Moist Mucous Membranes
Respiratory: Bilateral scattered wheezes; Negative Rales or Rhonchi
Cardiac: Regular Rhythm, tachycardic, and S1/S2
GI: Soft, mild suprapubic tenderness and mild distended
Musculoskeletal: No Clubbing, No Cyanosis and trace bilateral lower extremity edema
Neuro: Awake, Alert and left hemiparesis
Psych: Calm
A/P:
Sepsis:
Sepsis due to pneumonia per ID versus CAUTI:
Continue IV antibiotics, Zosyn
WBC 22--> down to 11.2
Lactic acid of 4.9--> down to 1.7
Serratia Marcescens in the urine, blood culture positive awaiting ID
ID consult appreciated
Updated daughter over the phone yesterday
PT eval
Stercoral colitis:
Continue bowel regimen
Stopped enema
Toxic metabolic encephalopathy:
Likely related to sepsis
start diet by speech therapy--> status post FEES today and no aspiration.
Monitor mental status closely
Hypoxia:
Likely atelectasis, pneumonia, and sepsis related
DuoNeb as needed
Oxygen supplementation
Incentive spirometer
Sinus tachycardia:
Due to current acute illness
Some episodes possible SVT--> continue cardiac monitoring and obtain twelve-lead EKG when episode recurs
CVA with left hemiparesis:
Continue Plavix
Dementia, probable vascular:
As per family's dementia is mild. Of note he is hard of hearing and he is hearing aids are out of battery and they are trying to work on that.
Hypertension:
IV hydralazine as needed
Oral Diovan with holding parameters
No clear history of seizure disorder:
Family is unaware that he has history of seizure
Continue Keppra tapering course and plan to discontinue completely
Hyperlipidemia:
Hold statin due to elevated LFTs
Elevated LFTs:
Monitor trend
History of prior cholecystectomy
Checked ultrasound of right upper quadrant and unremarkable
Hyperglycemia:
Insulin sliding scale
Check hemoglobin A1c 6.8
DVT prophylaxis:
Lovenox SQ
CODE STATUS:
Full code
Total time spent on today's encounter was 52 minutes which included time spent in counseling the patient/family regarding diagnosis and treatment plan as listed above, goals of care, and symptom management. Case was discussed with nursing staff,
specialists, and care coordinators/case management. All labs and imaging personally reviewed by me. Remainder the time spent in detailed review of previous records, lab data, imaging, and other medical provider documentation.
Anticipated Discharge: > 48 hours
Subjective/Interval History
-
Date of Service: October 17, 2024
Patient denies nausea or vomiting.
Objective Data
-
Labs:
Laboratory Results
10/17/24 10/17/24
04:39 07:58
WBC Cancelled 11.2 H
Hgb Cancelled 10.0 L
Hct Cancelled 29.4 L
Plt Count Cancelled 198 D
Sodium 137
Potassium 3.6
Chloride 105
Carbon Dioxide 24
BUN 27 H
Creatinine 0.9
Glucose 164 H
Calcium 8.4
Total Bilirubin 0.8
AST 38
ALT 49
Alkaline Phosphatase 143 H
Vital Signs:
Vital Signs
Temp Pulse Resp BP Pulse Ox
98.2 F 96 18 124/47 95
10/17/24 07:10 10/17/24 08:03 10/17/24 06:00 10/17/24 08:03 10/17/24 05:01
I&O
10/16/24 10/17/24 10/18/24
06:59 06:59 06:59
Intake Total 2660 / 2660 780 / 780
Output Total 1340 / 1340 1000 / 1000
Balance 1320 / 1320 -220 / -220
--- NOTE | 2024-10-17 09:19 | W.PN.ID1 ---
Date of Service
Date of Service: October 17, 2024
Today's Communication
Continue Zosyn.
Assessment / Plan
# RLL PNA - suspect aspiration
# GNR bacteremia, 1 (anaerobic) of 4 bottles - ?contaminant
# Serratia bacteruria in setting of chronic SPC - changed in ED
# Improving severe sepsis: fever, leukocytosis, elev lactic acid
# Constipation with mild rectal stercoral colitis
- Await identification of organisms in blood
- Continue Zosyn (d2)
- Trend temperature, white count
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
Dementia
CVA with left hemiparesis
Hypertension
HLD
Depression
Neurogenic bladder with chronic suprapubic catheter
Cholecystectomy
SNF resident
Chief Complaint
-: Pneumonia
Subjective / Review of Systems
Feels better. + cough.
Vital Signs / Physical Exam
Vital Signs
Vital Signs
Temp Pulse Resp BP Pulse Ox
98.2 F 96 18 124/47 95
10/17/24 07:10 10/17/24 08:03 10/17/24 06:00 10/17/24 08:03 10/17/24 05:01
Physical Exam
Constitutional: Chronically Ill
Pulmonary: Rhonchi and Coarse
Gastrointestinal: Soft and Non Tender
Genito-Urinary: Clear Urine (SPC); Negative CVA Tenderness
Neurological: Awake
Objective Data
Lab Data
Lab Results
10/17/24 07:58
10/17/24 04:39
PT 14.1 Sec (11.4-14.6) 10/15/24 08:57
INR 1.05 10/15/24 08:57
Estimated Creat Clear 59 ml/min 10/17/24 04:39
Lactic Acid 1.7 mmol/L (0.7-2.0) 10/16/24 07:11
Total Bilirubin 0.8 mg/dl (0.2-1.3) 10/17/24 04:39
AST 38 U/L (17-59) 10/17/24 04:39
ALT 49 U/L (0-50) 10/17/24 04:39
Alkaline Phosphatase 143 U/L (38-126) H 10/17/24 04:39
Most recent labs reviewed.
Micro Results:
10/15/24 09:05 Blood Culture - Preliminary
Blood/Venous No Growth in 48 hours- Final report to follow
10/15/24 08:57 Urine Culture - Final
Urine Serratia marcescens
10/15/24 08:57 Blood Culture - Preliminary
Blood/Venous Positive culture in progress
Gram Stain - Preliminary
10/15/24 08:57 Influenza Types A & B (SALUD) - Final
Nasal Swab Negative for Influenza A & B, NAAT
Negative results must be combined with clinical observations
and patient history.
Nucleic Acid Amplification test (NAAT)performed on the
[employer] platform.
10/16/24 CXR: There is a new right basilar airspace opacity which may represent pneumonitis/pneumonia or atelectasis.
10/16/24 ABD US: Prior cholecystectomy without evidence of biliary duct dilation. Hepatic steatosis.
10/15/24 CT a/p: Large volume stool filling and mildly distending the rectum with some possible mild rectal wall thickening.. Findings could represent mild stercoral colitis. An catheter/balloon within an empty urinary bladder, evaluation markedly
limited.
--- NOTE | 2024-10-17 10:13 | PN.CDI ---
CDI
- -
CDI:
Physician Documentation Request
Admit Date: 10/15/24 11:19
Dear Doctor Martita,
Patient admitted for sepsis.
10/16 PCN: 'Patient with stg 2 to sacrum, unable to dress as patient has frequent watery bm's.'
Clinical panel nursing documentation wound care
10/15/24
20:16
Dressing appearance [Present on admission Sacrum] Dry/intact
Is this a pressure-related injury? [Present on admission Sacrum] Yes
Pressure injury appearance [Present on admission Sacrum] [place] wound bed
Pressure injury stage [Present on admission Sacrum] Stage 2
Physician documentation of the type and location of wounds is required for compliant documentation. Based on the above clinical findings and your assessment, please provide the following in your progress note:
1. Location of the ulcer/wound, including laterality.
2. Type (etiology) of ulcer/wound:
- Diabetic ulcer
- Arterial (ischemic) ulcer
- Traumatic wound
- Venous stasis ulcer
- Pressure (decubitus) ulcer
- Non-healing surgical wound
- Other
- Unable to determine
3. For a non-pressure ulcer, please indicate the depth/severity:
- Limited to the breakdown of skin
- With fat layer exposed
- With necrosis of muscle
- With necrosis of bone
- Other
- Unable to determine
4. If a pressure ulcer, please also include the stage* of the ulcer:
- Stage 1 - Skin intact, non-blanchable redness
- Stage 2 - Partial thickness loss of dermis, includes intact or open blister
- Stage 3 - Full thickness tissue not including bone, tendon or muscle
- Stage 4 - Full thickness tissue loss, including exposed bone, tendon or muscle
- Unstageable - Full thickness loss in which the base of the ulcer is covered by slough (yellow, pace, triana, green or brown) and/or eschar (pace, brown or black) in the wound bed.
- Unable to determine
Use of terms such as suspected, likely, concern for, or probable (associated with a specific diagnosis that is being evaluated, monitored, or treated as if it exists) are acceptable and can be coded in the inpatient setting, when documented at the
time of discharge.
Thank you,
Joyce Rodriges RN, BSN
CDI Specialist
Available via [place] text
Please use your independent medical judgment in providing your response.
*Source: National Pressure Ulcer Advisory Panel (NPUAP)
[2024-10-17 12:25] LABS: Glucose - Point of Care 155 mg/dl (70-99)
[2024-10-17] MEDS: COLACE PO (14:24)
--- NOTE | 2024-10-17 14:46 | PTOTSP ---
Speech Language Pathology
FLEXIBLE ENDOSCOPIC EVALUATION OF SWALLOWING (FEES) completed. Full report to follow.
Summary: Mild pharyngeal dysphagia noted with trace to mild amount of diffuse pharyngeal residue, cleared with independent subsequent swallows. No penetration/aspiration noted with any consistencies trialed. Overall, patient protected airway well.
Of note, coughing throughout study in absence of penetration/aspiration.
Recommend:
(1) Continue IDDSI Level 6 (soft/bite-sized) and thin liquids
(2) Aspiration precautions: supervision with assist as needed, sit upright
(3) Meds whole in puree
(4) ACTIVITY COORDINATOR to continue to follow
[2024-10-17] MEDS: LOVENOX 40 MG SC (17:08)
[2024-10-17 17:09] LABS: Glucose - Point of Care 148 mg/dl (70-99)
[2024-10-17] MEDS: NOVOLOG FLEXPEN-MODERATE RESISTANCE SC (17:12)
[2024-10-17] MEDS: COLACE 100 MG PO (20:31)
[2024-10-17] MEDS: KEPPRA 250 MG PO (22:06)
[2024-10-17] MEDS: MELATONIN 3 MG PO (22:06)
[2024-10-17] MEDS: SEROQUEL 25 MG PO (22:06)
--- NOTE | 2024-10-17 22:25 | PTCARENOTE ---
Assumed care of pt from chrissy RN. Pt aaox1 to self with expressive aphasia. NSR on the monitor. 94% on RA. TOYIN medications administered (see MAR). Suprapubic catheter draining clear yellow urine. Rectal trumpet in place draining brown liquid
stool. Assessment and vitals as documented. Pt resting in bed with call lanza in reach.
[2024-10-17 22:54] LABS: Glucose - Point of Care 166 mg/dl (70-99)
[2024-10-18] VITALS (19 sets, daily range): BP systolic 89–171; BP diastolic 36–83
[2024-10-18 03:39] LABS: % Basophils 0.6 % (0-2); % Eosinophils 3.8 % (0-6); % Immature Granulocytes 0.4 % (0-0.5); % Lymphocytes 11.9 % (20.5-51.1); % Monocytes 7.8 % (1.7-9.3); % Neutrophils 75.5 % (42.2-75.2); Absolute Eosinophils 0.3 10^3/uL (0-0.7); Absolute Lymphocytes 0.8 10^3/uL (1.2-3.4); Absolute Monocytes 0.5 10^3/uL (0.1-0.6); Absolute Neutrophils 5.2 10^3/uL (1.4-6.5); Hematocrit 27.2 % (39.0-52.0); Hemoglobin 9.2 g/dL (13.0-18.0); Mean Corp Hgb Conc. 33.8 g/dL (33.0-37.0); Mean Corpuscular Hgb 30.6 pg (27.0-31.0); Mean Corpuscular Volume 90.4 fL (80.0-94.0); Mean Platelet Volume 9.5 fL (7.4-10.4); Nucleated Red Blood Cells % 0 % (-); Platelet Count 169 10^3/uL (130-400); Red Blood Cell Count 3.01 10^6/uL (4.70-6.10); White Blood Cell Count 6.8 10^3/uL (4.8-10.8)
[2024-10-18 04:03] LABS: ALT (SGPT) 46 U/L (0-50); AST (SGOT) 35 U/L (17-59); Albumin 2.6 g/dl (3.5-5.0); Alkaline Phosphatase 153 U/L (38-126); Blood Urea Nitrogen 20 mg/dl (9-20); Calcium 8.4 mg/dl (8.4-10.2); Carbon Dioxide 28 mmol/L (22-30); Chloride 104 mmol/L (98-107); Direct Bilirubin 0.4 mg/dl (0.0-0.4); Estimated Creatinine Clearance 53 ml/min; Glucose 128 mg/dl (70-99); Potassium 3.1 mmol/L (3.5-5.1); Sodium 139 mmol/L (135-145); Total Bilirubin 0.8 mg/dl (0.2-1.3); Total Protein 5.2 g/dl (6.3-8.2); eGFR > 60.00
[2024-10-18] MEDS: KCL 40 MEQ PO (05:39)
[2024-10-18] MEDS: ZOSYN 50 IV ×4 (05:39→23:06)
--- NOTE | 2024-10-18 07:07 | PTCARENOTE ---
Pt's K 3.1 this am and [employer] notified. Rx received for PO KCl which is administered (see MAR).
[2024-10-18 08:05] LABS: Glucose - Point of Care 155 mg/dl (70-99)
[2024-10-18] MEDS: NOVOLOG FLEXPEN-MODERATE RESISTANCE 1 UNITS SC (08:17)
[2024-10-18] MEDS: COLACE PO (08:18)
[2024-10-18] MEDS: DIOVAN 80 MG PO (08:18)
[2024-10-18] MEDS: CYMBALTA DELAYED RELEASE 60 MG PO (08:18)
[2024-10-18] MEDS: PLAVIX 75 MG PO (08:18)
[2024-10-18] MEDS: FLORASTOR 250 MG PO ×2 (08:19→20:23)
[2024-10-18] MEDS: KEPPRA 250 MG PO (08:19)
[2024-10-18] MEDS: MAGNESIUM OXIDE 500 MG PO (08:19)
[2024-10-18] MEDS: DUPHALAC/CHRONULAC PO (08:19)
[2024-10-18] MEDS: NEURONTIN 100 MG PO ×2 (08:19→20:23)
[2024-10-18] MEDS: MIRALAX PO (08:20)
--- NOTE | 2024-10-18 09:03 | W.PN.ID1 ---
Date of Service
Date of Service: October 18, 2024
Today's Communication
- Continue Zosyn (d4 of 7)
- At time of discharge, can transition to cefdinir 300mg po bid through 10/21/24.
Assessment / Plan
# RLL aspiration PNA
# GNR bacteremia, 1 (anaerobic) of 4 bottles - suspect contaminant
# Serratia bacteruria in setting of chronic SPC - changed in ED
# s/p severe sepsis: fever, leukocytosis, elev lactic acid
# Constipation with mild rectal stercoral colitis
- Continue Zosyn (d4 of 7)
- At time of discharge, can transition to cefdinir 300mg po bid through 10/21/24.
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
Dementia
CVA with left hemiparesis
Hypertension
HLD
Depression
Neurogenic bladder with chronic suprapubic catheter
Cholecystectomy
SNF resident
Chief Complaint
-: Pneumonia
Subjective / Review of Systems
Cough better
Vital Signs / Physical Exam
Vital Signs
Vital Signs
Temp Pulse Resp BP Pulse Ox
98.1 F 90 20 101/83 95
10/18/24 07:51 10/18/24 07:00 10/18/24 07:00 10/18/24 07:00 10/18/24 07:00
Physical Exam
Constitutional: No Acute Distress and Chronically Ill
Pulmonary: Rhonchi and Coarse
Gastrointestinal: Soft and Non Tender
Genito-Urinary: Clear Urine (SPC); Negative CVA Tenderness
Neurological: Awake and Alert
Objective Data
Lab Data
Lab Results
10/18/24 03:17
10/18/24 03:17
PT 14.1 Sec (11.4-14.6) 10/15/24 08:57
INR 1.05 10/15/24 08:57
Estimated Creat Clear 53 ml/min 10/18/24 03:17
Lactic Acid 1.7 mmol/L (0.7-2.0) 10/16/24 07:11
Total Bilirubin 0.8 mg/dl (0.2-1.3) 10/18/24 03:17
AST 35 U/L (17-59) 10/18/24 03:17
ALT 46 U/L (0-50) 10/18/24 03:17
Alkaline Phosphatase 153 U/L (38-126) H 10/18/24 03:17
Most recent labs reviewed.
Micro Results:
10/15/24 09:05 Blood Culture - Preliminary
Blood/Venous No Growth in 48 hours- Final report to follow
10/15/24 08:57 Urine Culture - Final
Urine Serratia marcescens
10/15/24 08:57 Blood Culture - Preliminary
Blood/Venous Positive culture in progress
Gram Stain - Preliminary
10/15/24 08:57 Influenza Types A & B (SALUD) - Final
Nasal Swab Negative for Influenza A & B, NAAT
Negative results must be combined with clinical observations
and patient history.
Nucleic Acid Amplification test (NAAT)performed on the
[employer] NOW platform.
10/16/24 CXR: There is a new right basilar airspace opacity which may represent pneumonitis/pneumonia or atelectasis.
10/16/24 ABD US: Prior cholecystectomy without evidence of biliary duct dilation. Hepatic steatosis.
10/15/24 CT a/p: Large volume stool filling and mildly distending the rectum with some possible mild rectal wall thickening.. Findings could represent mild stercoral colitis. An catheter/balloon within an empty urinary bladder, evaluation markedly
limited.
--- NOTE | 2024-10-18 09:21 | W.PN.HOSP.TC ---
Addendum entered and electronically signed by Shayan Anders MD 10/18/24 15:06:
Hypokalemia
Original Note:
Today's Communication/Plan
-
Continue antibiotics. Discharge planning
Assessment / Plan
Assessment / Plan
Physical exam:
General: Acutely ill.
HEENT: Normocephalic, Atraumatic and Moist Mucous Membranes
Respiratory: Bilateral scattered wheezes; Negative Rales or Rhonchi
Cardiac: Regular Rhythm, tachycardic, and S1/S2
GI: Soft, mild suprapubic tenderness and mild distended
Musculoskeletal: No Clubbing, No Cyanosis and trace bilateral lower extremity edema
Neuro: Awake, Alert and left hemiparesis
Psych: Calm
A/P:
Sepsis:
Sepsis due to pneumonia:
Continue IV antibiotics, Zosyn and plan to switch to oral upon discharge
WBC 22--> down to 6.8
Lactic acid of 4.9--> down to 1.7
Serratia Marcescens in the urine, blood culture positive awaiting ID
ID consult appreciated
Updated daughter over the phone prior
PT eval no need since patient is already Nelson lift dependent
Transfer out of IMU to telemetry today
Stercoral colitis:
Continue bowel regimen
Stopped enema
Toxic metabolic encephalopathy:
Likely related to sepsis
start diet by speech therapy--> status post FEES yesterday and no aspiration.
Monitor mental status closely
Hypoxia:
Likely atelectasis, pneumonia, and sepsis related
DuoNeb as needed
Oxygen supplementation
Incentive spirometer
Sinus tachycardia:
Due to current acute illness
Some episodes possible SVT--> continue cardiac monitoring and obtain twelve-lead EKG when episode recurs
CVA with left hemiparesis:
Continue Plavix
Dementia, probable vascular:
As per family's dementia is mild. Of note he is hard of hearing and he is hearing aids are out of battery and they are trying to work on that.
Hypertension:
IV hydralazine as needed
Oral Diovan with holding parameters
No clear history of seizure disorder:
Family is unaware that he has history of seizure
Continue Keppra tapering course and plan to discontinue completely over the next 24 hrs.
Hyperlipidemia:
Hold statin due to elevated LFTs
Elevated LFTs:
Monitor trend
History of prior cholecystectomy
Checked ultrasound of right upper quadrant and unremarkable
Hyperglycemia:
Insulin sliding scale
Check hemoglobin A1c 6.8
DVT prophylaxis:
Lovenox SQ
CODE STATUS:
Full code
Anticipated Discharge: 24 - 48 hours
Subjective/Interval History
-
Date of Service: October 18, 2024
No new complaints today.
Objective Data
-
Labs:
Laboratory Results
10/18/24
03:17
WBC 6.8
Hgb 9.2 L
Hct 27.2 L
Plt Count 169
Sodium 139
Potassium 3.1 L
Chloride 104
Carbon Dioxide 28
BUN 20
Creatinine 1.0
Glucose 128 H
Calcium 8.4
Total Bilirubin 0.8
AST 35
ALT 46
Alkaline Phosphatase 153 H
Vital Signs:
Vital Signs
Temp Pulse Resp BP Pulse Ox
98.1 F 90 20 101/83 95
10/18/24 07:51 10/18/24 07:00 10/18/24 07:00 10/18/24 07:00 10/18/24 07:00
I&O
10/17/24 10/18/24 10/19/24
06:59 06:59 06:59
Intake Total 780 / 780 1590 / 1590 240 / 240
Output Total 1000 / 1000 1750 / 1750 475 / 475
Balance -220 / -220 -160 / -160 -235 / -235
[2024-10-18] MEDS: NOVOLOG FLEXPEN-MODERATE RESISTANCE 5 UNITS SC (12:56)
[2024-10-18 13:05] LABS: Glucose - Point of Care 286 mg/dl (70-99)
--- NOTE | 2024-10-18 13:23 | CM ---
Chart reviewed. Care ongoing. Patient is a LTC resident at [facility]
Per ID, patient can transition to oral abx at d/c
Patient not appropriate for physical therapy as he is dependent, w/c bound, marcella lift for transfers
Plan: Return to [facility]
--- NOTE | 2024-10-18 14:31 | PN.CDI ---
CDI
- -
CDI:
Physician Documentation Request
Admit Date: 10/15/24 11:19
Dear Doctor Martita,
Patient admitted for sepsis.
10/18 Potassium level: 3.1
10/18 Potassium chloride 40 meq PO administered
Based on the above, could you clarify in the progress notes, the appropriate diagnosis, if significant, that supports the above abnormalities and additional evaluation, monitoring and/or treatment rendered:
Hypokalemia
Abnormal lab value insignificant
Other
Use of terms such as suspected, likely, concern for, or probable (associated with a specific diagnosis that is being evaluated, monitored, or treated as if it exists) are acceptable and can be coded in the inpatient setting, when documented at the
time of discharge.
Thank you,
Joyce Rodriges RN, BSN
CDI Specialist
Available via [place] text
Please use your independent medical judgment in providing your response.
[2024-10-18] MEDS: LOVENOX 40 MG SC (17:32)
[2024-10-18] MEDS: NOVOLOG FLEXPEN-MODERATE RESISTANCE SC (17:59)
[2024-10-18 18:01] LABS: Glucose - Point of Care 117 mg/dl (70-99)
[2024-10-18] MEDS: COLACE 100 MG PO (20:24)
[2024-10-18] MEDS: SEROQUEL 25 MG PO (20:24)
[2024-10-18] MEDS: MELATONIN 3 MG PO (20:24)
[2024-10-18 21:31] LABS: Glucose - Point of Care 139 mg/dl (70-99)
--- NOTE | 2024-10-18 23:48 | PTCARENOTE ---
Report called to SONU Szymanski on 2S. Pt belongings packed and brought with patient. Transferred via bed with patient monitor.
[2024-10-19] VITALS (8 sets, daily range): BP systolic 144–173; BP diastolic 73–93
--- NOTE | 2024-10-19 00:17 | PTCARENOTE ---
Pt arrived from IMU in bed on monitor to [address].
[2024-10-19] MEDS: ZOSYN 50 IV (05:10)
[2024-10-19 05:49] LABS: % Basophils 0.6 % (0-2); % Eosinophils 4.1 % (0-6); % Immature Granulocytes 0.6 % (0-0.5); % Lymphocytes 13.4 % (20.5-51.1); % Monocytes 8.6 % (1.7-9.3); % Neutrophils 72.7 % (42.2-75.2); Absolute Eosinophils 0.3 10^3/uL (0-0.7); Absolute Lymphocytes 0.9 10^3/uL (1.2-3.4); Absolute Monocytes 0.6 10^3/uL (0.1-0.6); Hematocrit 26.3 % (39.0-52.0); Hemoglobin 8.7 g/dL (13.0-18.0); Mean Corp Hgb Conc. 33.1 g/dL (33.0-37.0); Mean Corpuscular Hgb 29.7 pg (27.0-31.0); Mean Corpuscular Volume 89.8 fL (80.0-94.0); Mean Platelet Volume 9.4 fL (7.4-10.4); Nucleated Red Blood Cells % 0 % (-); Platelet Count 183 10^3/uL (130-400); Red Blood Cell Count 2.93 10^6/uL (4.70-6.10); Red Cell Dist. Width 13.9 % (11.5-14.5); White Blood Cell Count 6.9 10^3/uL (4.8-10.8)
[2024-10-19 06:16] LABS: ALT (SGPT) 36 U/L (0-50); AST (SGOT) 35 U/L (17-59); Albumin 2.5 g/dl (3.5-5.0); Alkaline Phosphatase 133 U/L (38-126); Blood Urea Nitrogen 15 mg/dl (9-20); Calcium 8.1 mg/dl (8.4-10.2); Carbon Dioxide 27 mmol/L (22-30); Chloride 105 mmol/L (98-107); Estimated Creatinine Clearance 59 ml/min; Glucose 133 mg/dl (70-99); Potassium 3.4 mmol/L (3.5-5.1); Sodium 137 mmol/L (135-145); Total Bilirubin 0.6 mg/dl (0.2-1.3); Total Protein 5.1 g/dl (6.3-8.2); eGFR > 60.00
[2024-10-19 07:50] LABS: Glucose - Point of Care 143 mg/dl (70-99)
[2024-10-19] MEDS: NOVOLOG FLEXPEN-MODERATE RESISTANCE SC ×2 (08:45→17:23)
--- NOTE | 2024-10-19 08:58 | W.PN.HOSP.TC ---
Today's Communication/Plan
-
IV antibiotics
Assessment / Plan
Assessment / Plan
Physical exam:
General: Acutely ill.
HEENT: Normocephalic, Atraumatic and Moist Mucous Membranes
Respiratory: Clear to auscultation bilaterally; Negative Wheezes or Rales or Rhonchi
Cardiac: Regular Rhythm, and S1/S2
GI: Soft, no tenderness and distended
Musculoskeletal: No Clubbing, No Cyanosis and trace bilateral lower extremity edema
Neuro: Awake, Alert and left hemiparesis
Psych: Calm
A/P:
Sepsis:
Sepsis due to pneumonia:
Continue IV antibiotics, narrowed down from Zosyn to IV ceftriaxone. Plan to switch to oral cefdinir over the next 24 to 48 hours or upon discharge.
WBC 22--> down to 6.9
Lactic acid of 4.9--> down to 1.7
Serratia Marcescens in the urine, blood culture positive awaiting ID
ID consult appreciated
Updated daughter over the phone prior
PT eval no need to cont since patient is already Nelson lift dependent
Stercoral colitis:
Continue bowel regimen
Stopped enema
Toxic metabolic encephalopathy:
Likely related to sepsis
Continue diet by speech therapy--> status post FEES and no aspiration.
Monitor mental status closely
Hypoxia:
Likely atelectasis, pneumonia, and sepsis related
DuoNeb as needed
Oxygen supplementation
Incentive spirometer
Sinus tachycardia:
Due to current acute illness
Some episodes possible SVT--> continue cardiac monitoring and obtain twelve-lead EKG when episode recurs
CVA with left hemiparesis:
Continue Plavix
Dementia, probable vascular:
As per family's dementia is mild. Of note he is hard of hearing and he is hearing aids are out of battery and they are trying to work on that.
Hypertension:
IV hydralazine as needed
Oral Diovan with holding parameters
No clear history of seizure disorder:
Family is unaware that he has history of seizure
Keppra was tapered and now completely discontinued
Hyperlipidemia:
Resume statins
Elevated LFTs:
Monitor trend
History of prior cholecystectomy
Checked ultrasound of right upper quadrant and unremarkable
Hyperglycemia:
Insulin sliding scale
Check hemoglobin A1c 6.8
DVT prophylaxis:
Lovenox SQ
CODE STATUS:
Full code
Anticipated Discharge: Within 24 hours
Subjective/Interval History
-
Date of Service: October 19, 2024
No new complaints. Afebrile
Objective Data
-
Labs:
Laboratory Results
10/19/24
05:09
WBC 6.9
Hgb 8.7 L
Hct 26.3 L
Plt Count 183
Sodium 137
Potassium 3.4 L
Chloride 105
Carbon Dioxide 27
BUN 15
Creatinine 0.9
Glucose 133 H
Calcium 8.1 L
Total Bilirubin 0.6
AST 35
ALT 36
Alkaline Phosphatase 133 H
Vital Signs:
Vital Signs
Temp Pulse Resp BP Pulse Ox
97.8 F 91 18 154/93 95
10/19/24 07:50 10/19/24 07:50 10/19/24 07:50 10/19/24 07:50 10/19/24 07:50
I&O
10/18/24 10/19/24 10/20/24
06:59 06:59 06:59
Intake Total 1590 / 1590 2009
Output Total 1750 / 1750 2775 / 2775
Balance -160 / -160 -765 / -765
[2024-10-19] MEDS: KCL 40 MEQ PO (09:18)
[2024-10-19] MEDS: DIOVAN 80 MG PO (09:18)
--- NOTE | 2024-10-19 09:18 | W.PN.ID1 ---
Date of Service
Date of Service: October 19, 2024
Today's Communication
- Narrow Zosyn to ceftriaxone (d5 abx)
- At time of discharge, can transition to cefdinir 300mg po bid through 10/24/24.
Assessment / Plan
# RLL aspiration PNA
# Providentia bacteremia, 1 of 4 bottles - suspect aspiration source
# Serratia bacteruria in setting of chronic SPC - changed in ED
# s/p severe sepsis: fever, leukocytosis, elev lactic acid
# Constipation with mild rectal stercoral colitis
- Narrow Zosyn to ceftriaxone (d5 abx)
- At time of discharge, can transition to cefdinir 300mg po bid through 10/24/24.
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
Dementia
CVA with left hemiparesis
Hypertension
HLD
Depression
Neurogenic bladder with chronic suprapubic catheter
Cholecystectomy
SNF resident
Chief Complaint
-: Pneumonia
Subjective / Review of Systems
Cough better.
Vital Signs / Physical Exam
Vital Signs
Vital Signs
Temp Pulse Resp BP Pulse Ox
97.8 F 91 18 154/93 95
10/19/24 07:50 10/19/24 07:50 10/19/24 07:50 10/19/24 07:50 10/19/24 07:50
Physical Exam
Constitutional: No Acute Distress
Pulmonary: Clear (anteriorly)
Gastrointestinal: Soft, Non Tender, Non Distended and Normal Bowel Sounds
Genito-Urinary: An and Clear Urine
Objective Data
Lab Data
Lab Results
10/19/24 05:09
10/19/24 05:09
PT 14.1 Sec (11.4-14.6) 10/15/24 08:57
INR 1.05 10/15/24 08:57
Estimated Creat Clear 59 ml/min 10/19/24 05:09
Lactic Acid 1.7 mmol/L (0.7-2.0) 10/16/24 07:11
Total Bilirubin 0.6 mg/dl (0.2-1.3) 10/19/24 05:09
AST 35 U/L (17-59) 10/19/24 05:09
ALT 36 U/L (0-50) 10/19/24 05:09
Alkaline Phosphatase 133 U/L (38-126) H 10/19/24 05:09
Most recent labs reviewed.
Micro Results:
10/15/24 09:05 Blood Culture - Preliminary
Blood/Venous No Growth in 4 days- Final report to follow
10/15/24 08:57 Blood Culture - Preliminary
Blood/Venous Providencia stuartii
Providencia stuartii#2
Gram Stain - Preliminary
10/15/24 08:57 Urine Culture - Final
Urine Serratia marcescens
10/15/24 08:57 Influenza Types A & B (SALUD) - Final
Nasal Swab Negative for Influenza A & B, NAAT
Negative results must be combined with clinical observations
and patient history.
Nucleic Acid Amplification test (NAAT)performed on the
[employer] platform.
10/16/24 CXR: There is a new right basilar airspace opacity which may represent pneumonitis/pneumonia or atelectasis.
10/16/24 ABD US: Prior cholecystectomy without evidence of biliary duct dilation. Hepatic steatosis.
10/15/24 CT a/p: Large volume stool filling and mildly distending the rectum with some possible mild rectal wall thickening.. Findings could represent mild stercoral colitis. An catheter/balloon within an empty urinary bladder, evaluation markedly
limited.
[2024-10-19] MEDS: CYMBALTA DELAYED RELEASE 60 MG PO (09:19)
[2024-10-19] MEDS: MAGNESIUM OXIDE 500 MG PO (09:19)
[2024-10-19] MEDS: DUPHALAC/CHRONULAC 20 GRAMS PO (09:19)
[2024-10-19] MEDS: PLAVIX 75 MG PO (09:20)
[2024-10-19] MEDS: FLORASTOR 250 MG PO ×2 (09:20→20:34)
[2024-10-19] MEDS: NEURONTIN 100 MG PO ×2 (09:20→20:34)
[2024-10-19] MEDS: COLACE 100 MG PO ×2 (09:20→20:34)
[2024-10-19] MEDS: MIRALAX 17 GRAMS PO (10:01)
[2024-10-19 11:50] LABS: Glucose - Point of Care 299 mg/dl (70-99)
[2024-10-19] MEDS: ROCEPHIN 2000 MG IV (12:38)
[2024-10-19] MEDS: NOVOLOG FLEXPEN-MODERATE RESISTANCE 5 UNITS SC (12:39)
[2024-10-19] MEDS: STERILE WATER FOR INJECTION 20 ML IV (12:39)
[2024-10-19] MEDS: APRESOLINE 10 MG IV (15:28)
[2024-10-19 17:17] LABS: Glucose - Point of Care 116 mg/dl (70-99)
[2024-10-19] MEDS: LOVENOX 40 MG SC (17:42)
[2024-10-19 21:38] LABS: Glucose - Point of Care 90 mg/dl (70-99)
[2024-10-19] MEDS: SEROQUEL 25 MG PO (21:54)
[2024-10-19] MEDS: MELATONIN 3 MG PO (21:54)
[2024-10-20 03:23] VITALS: BP 171/90
[2024-10-20] MEDS: APRESOLINE 10 MG IV (03:24)
[2024-10-20 04:40] VITALS: BP 160/85
[2024-10-20 06:34] LABS: Hematocrit 29.2 % (39.0-52.0); Hemoglobin 9.7 g/dL (13.0-18.0); Mean Corp Hgb Conc. 33.2 g/dL (33.0-37.0); Mean Corpuscular Volume 90.4 fL (80.0-94.0); Mean Platelet Volume 9.5 fL (7.4-10.4); Platelet Count 218 10^3/uL (130-400); Red Blood Cell Count 3.23 10^6/uL (4.70-6.10); Red Cell Dist. Width 14.2 % (11.5-14.5); White Blood Cell Count 7.6 10^3/uL (4.8-10.8)
[2024-10-20 07:18] LABS: Blood Urea Nitrogen 11 mg/dl (9-20); Calcium 8.4 mg/dl (8.4-10.2); Carbon Dioxide 25 mmol/L (22-30); Chloride 105 mmol/L (98-107); Estimated Creatinine Clearance 67 ml/min; Glucose 137 mg/dl (70-99); Potassium 3.8 mmol/L (3.5-5.1); Sodium 138 mmol/L (135-145); eGFR > 60.00
[2024-10-20 07:30] VITALS: BP 167/78
[2024-10-20 08:22] LABS: Glucose - Point of Care 143 mg/dl (70-99)
--- NOTE | 2024-10-20 08:49 | W.PN.HOSP.TC ---
Today's Communication/Plan
-
Discharge planning
Assessment / Plan
Assessment / Plan
Physical exam:
General: No acute distress
HEENT: Normocephalic, Atraumatic and Moist Mucous Membranes
Respiratory: Clear to auscultation bilaterally; Negative Wheezes or Rales or Rhonchi
Cardiac: Regular Rhythm, and S1/S2
GI: Soft, no tenderness and distended
Musculoskeletal: No Clubbing, No Cyanosis and trace bilateral lower extremity edema
Neuro: Awake, Alert and left hemiparesis
Psych: Calm
A/P:
Sepsis:
Sepsis due to pneumonia:
Continue IV antibiotics, narrowed down from Zosyn to IV ceftriaxone. Plan to switch to oral cefdinir upon discharge.
WBC 22--> down to 7.6
Lactic acid of 4.9--> down to 1.7
Serratia Marcescens in urine culture
Providencia in blood culture culture
ID consult appreciated
Updated daughter over the phone prior
PT eval no need to cont since patient is already Nelson lift dependent
Discussed with daughter over the phone today
Discussed with outsole caser-plan to discharge today
Stercoral colitis:
Continue bowel regimen
Stopped enema
Toxic metabolic encephalopathy:
Likely related to sepsis
Continue diet by speech therapy--> status post FEES and no aspiration.
Monitor mental status closely
Hypoxia:
Likely atelectasis, pneumonia, and sepsis related
DuoNeb as needed
Oxygen supplementation
Incentive spirometer
Sinus tachycardia:
Due to current acute illness
Some episodes possible SVT--> continue cardiac monitoring and obtain twelve-lead EKG when episode recurs
CVA with left hemiparesis:
Continue Plavix
Dementia, probable vascular:
As per family's dementia is mild. Of note he is hard of hearing and he is hearing aids are out of battery and they are trying to work on that.
Hypertension:
IV hydralazine as needed
Oral Diovan with holding parameters
No clear history of seizure disorder:
Family is unaware that he has history of seizure
Keppra was tapered and now completely discontinued
Hyperlipidemia:
Resume statins
Elevated LFTs:
Monitor trend
History of prior cholecystectomy
Checked ultrasound of right upper quadrant and unremarkable
Hyperglycemia:
Insulin sliding scale
Check hemoglobin A1c 6.8
DVT prophylaxis:
Lovenox SQ
CODE STATUS:
Full code
Anticipated Discharge: Today
Subjective/Interval History
-
Date of Service: October 20, 2024
No new complaints. On room air. Afebrile
Objective Data
-
Labs:
Laboratory Results
10/20/24
05:12
WBC 7.6
Hgb 9.7 L
Hct 29.2 L
Plt Count 218
Sodium 138
Potassium 3.8
Chloride 105
Carbon Dioxide 25
BUN 11
Creatinine 0.8
Glucose 137 H
Calcium 8.4
Vital Signs:
Vital Signs
Temp Pulse Resp BP Pulse Ox
98.5 F 99 16 167/78 96
10/20/24 07:30 10/20/24 07:30 10/20/24 07:30 10/20/24 07:30 10/20/24 07:30
I&O
10/19/24 10/20/24 10/21/24
06:59 06:59 06:59
Intake Total 2009 960 / 960
Output Total 2775 / 2775 1825 / 1825
Balance -765 / -765 -865 / -865
[2024-10-20] MEDS: NOVOLOG FLEXPEN-MODERATE RESISTANCE SC (09:01)
[2024-10-20] MEDS: COLACE 100 MG PO (09:02)
[2024-10-20] MEDS: CYMBALTA DELAYED RELEASE 60 MG PO (09:02)
[2024-10-20] MEDS: MAGNESIUM OXIDE 500 MG PO (09:02)
[2024-10-20] MEDS: DIOVAN 80 MG PO (09:02)
[2024-10-20] MEDS: FLORASTOR 250 MG PO (09:02)
[2024-10-20] MEDS: PLAVIX 75 MG PO (09:02)
[2024-10-20] MEDS: NEURONTIN 100 MG PO (09:02)
[2024-10-20] MEDS: DUPHALAC/CHRONULAC 20 GRAMS PO (09:03)
[2024-10-20] MEDS: MIRALAX 17 GRAMS PO (09:04)
--- NOTE | 2024-10-20 09:20 | CM ---
Chart reviewed and showcase trimmer reached out to Yumiko in admissions at [facility], and she is aware that patient has been cleared for discharge, she requested clinicals which have been faxed. Patient does not require Auth to return to [facility]. patient requires total care and therefore requires ambulance transport.
[facility]
Report [phone]

Plan; Patient to return to [facility] today by ambulance
--- NOTE | 2024-10-20 10:19 | W.PN.ID1 ---
Date of Service
Date of Service: October 20, 2024
Today's Communication
- Continue ceftriaxone (d6 abx)
- At time of discharge, can transition to cefdinir 300mg po bid through 10/24/24.
Assessment / Plan
# RLL aspiration PNA
# Providentia bacteremia, 1 of 4 bottles - suspect aspiration source
# Serratia bacteruria in setting of chronic SPC - changed in ED
# s/p severe sepsis: fever, leukocytosis, elev lactic acid
# Constipation with mild rectal stercoral colitis
- Continue ceftriaxone (d6 abx)
- At time of discharge, can transition to cefdinir 300mg po bid through 10/24/24.
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
Dementia
CVA with left hemiparesis
Hypertension
HLD
Depression
Neurogenic bladder with chronic suprapubic catheter
Cholecystectomy
SNF resident
Chief Complaint
-: Pneumonia
Subjective / Review of Systems
No complaints today.
Vital Signs / Physical Exam
Vital Signs
Vital Signs
Temp Pulse Resp BP Pulse Ox
98.5 F 99 16 167/78 96
10/20/24 07:30 10/20/24 07:30 10/20/24 07:30 10/20/24 07:30 10/20/24 07:30
Physical Exam
Constitutional: No Acute Distress, Comfortable and Chronically Ill
Cardiovascular: Regular Rate and S1/S2
Pulmonary: Clear (anteriorly)
Gastrointestinal: Soft, Non Tender, Non Distended and Normal Bowel Sounds
Genito-Urinary: An and Clear Urine
Neurological: Awake
Objective Data
Lab Data
Lab Results
10/20/24 05:12
10/20/24 05:12
PT 14.1 Sec (11.4-14.6) 10/15/24 08:57
INR 1.05 10/15/24 08:57
Estimated Creat Clear 67 ml/min 10/20/24 05:12
Lactic Acid 1.7 mmol/L (0.7-2.0) 10/16/24 07:11
Total Bilirubin 0.6 mg/dl (0.2-1.3) 10/19/24 05:09
AST 35 U/L (17-59) 10/19/24 05:09
ALT 36 U/L (0-50) 10/19/24 05:09
Alkaline Phosphatase 133 U/L (38-126) H 10/19/24 05:09
Most recent labs reviewed.
Micro Results:
10/15/24 09:05 Blood Culture - Final
Blood/Venous No Growth - Final Report
10/15/24 08:57 Blood Culture - Preliminary
Blood/Venous Providencia stuartii
Providencia stuartii#2
Gram Stain - Preliminary
10/15/24 08:57 Urine Culture - Final
Urine Serratia marcescens
10/15/24 08:57 Influenza Types A & B (SALUD) - Final
Nasal Swab Negative for Influenza A & B, NAAT
Negative results must be combined with clinical observations
and patient history.
Nucleic Acid Amplification test (NAAT)performed on the
[employer] platform.
10/16/24 CXR: There is a new right basilar airspace opacity which may represent pneumonitis/pneumonia or atelectasis.
10/16/24 ABD US: Prior cholecystectomy without evidence of biliary duct dilation. Hepatic steatosis.
10/15/24 CT a/p: Large volume stool filling and mildly distending the rectum with some possible mild rectal wall thickening.. Findings could represent mild stercoral colitis. An catheter/balloon within an empty urinary bladder, evaluation markedly
limited.
[2024-10-20 11:10] VITALS: BP 159/76
--- NOTE | 2024-10-20 11:40 | W.DCSUMMARY ---
Discharge Summary
Discharge Data
Date of Admission: 10/15/24
Date of Discharge: 10/20/24
-
Pending Results: No
Hospital Course
Patient 84 years old male with history of CVA with left hemiparesis, hypertension, hyperlipidemia, depression, neurogenic bladder with chronic suprapubic catheter, came into the hospital with change in mental status nausea and vomiting and fever.
Patient was found to have sepsis and treated with broad-spectrum antibiotics. ID consulted. ID recommended to continue admission IV antibiotics and felt the source was aspiration pneumonia. He did grew bacteria in the urine but ID felt that this
was asymptomatic bacteriuria. He also had a bacteremia that ID felt was related to aspiration event. Speech therapy saw him and recommended soft and bite-size diet. He did well rest of the hospital stay. WBC from 11.2 went down to 7.6. He also
was on Keppra and it was not clear the reason why so family asked to taper and discontinue and we did. He is on room air, afebrile, and feels back to his baseline.
Discharge duration: 35 minutes
Discharge Plan
-
Patient Disposition: Intermediate/SNF
Discharge Diagnosis/Procedures: Sepsis due to pneumonia. Bacteremia. Bacteriuria. Stercoral colitis. History of dementia. History of stroke with left hemiparesis. History of neurogenic bladder with chronic suprapubic catheter.
Diet: Other diet
Additional Diets: Soft and bite sized
Activity: As tolerated
Blood Work: Please PCP to order CBC, BMP within 1 week
Referrals:
Kimberli Burrell MD [Family Provider] - in less than 1 week
Prescriptions:
New
cefdinir 300 mg Capsule
300 mg PO Q12 5 Days Qty: 10 0RF
Continued
quetiapine [Seroquel] 25 mg Tablet
25 mg PO HS
sennosides [senna] 8.6 mg Tablet
17.2 mg PO HS
acetaminophen [Tylenol] 325 mg Tablet
650 mg PO Q6HPRN PRN (Reason: MILD PAIN)
atorvastatin [Lipitor] 20 mg Tablet
20 mg PO HS
polyethylene glycol 3350 [Miralax] 17 gram Powder In Packet
17 g PO DAILY
valsartan 80 mg Tablet
80 mg PO DAILY
melatonin 3 mg Tablet
3 mg PO HS
clopidogrel [Plavix] 75 mg Tablet
75 mg PO DAILY
magnesium hydroxide [Milk of Magnesia] 400 mg/5 mL Suspension
2,400 mg PO Q36H PRN (Reason: IG NO BM BY 3RD DAY)
bisacodyl [Dulcolax (bisacodyl)] 10 mg Suppository
10 mg AL [id number] PRN (Reason: IF NO BM BY 12 SHIFTS)
Fleet Enema 19-7 gram/118 mL Enema
118 ml AL Q36H PRN (Reason: CONSTIPATION)
gabapentin 100 mg Capsule
100 mg PO BID
ergocalciferol (vitamin D2) 1,250 mcg (50,000 unit) Capsule
1,250 mcg PO QMONTH
Rx Instructions:
TAKE Of THE 12TH OF Each month
duloxetine [Cymbalta] 60 mg Capsule,Delayed Release(Dr/Ec)
60 mg PO DAILY
diclofenac sodium 1 % Gel
0 g TOPICAL BID
magnesium oxide 400 mg magnesium Tablet
400 mg PO DAILY
Discontinued
levetiracetam [Keppra] 750 mg Tablet
750 mg PO BID
Discharge Orders:
Discharge Patient (As Directed); Ordered 10/20/24
Ordered By: Shayan Anders
Discharge Date and Time
Print Language: TELUGU
[2024-10-20 12:08] LABS: Glucose - Point of Care 255 mg/dl (70-99)
[2024-10-20 12:08] LABS: Glucose - Point of Care 226 mg/dl (70-99)
[2024-10-20] MEDS: STERILE WATER FOR INJECTION 20 ML IV (12:13)
[2024-10-20] MEDS: NOVOLOG FLEXPEN-MODERATE RESISTANCE 3 UNITS SC (12:13)
[2024-10-20] MEDS: ROCEPHIN 2000 MG IV (12:13)
== END 2024-10-20 14:06 | DRG 871 ==
LOC: 2 SOUTH 11:19
PROVIDERS: ADMITTING PHYSICIAN Hospitalist; EMERGENCY PHYSICIAN Student in an Organized Health Care Education/Training Program; FAMILY PHYSICIAN Internal Medicine; OTHER PHYSICIAN Internal Medicine Infectious Disease
DX: A41.59 Other Gram-negative sepsis (principal); G92.8 Other toxic encephalopathy; J18.9 Pneumonia, unspecified organism; J69.0 Pneumonitis due to inhalation of food and vomit; I69.354 Hemiplegia and hemiparesis following cerebral infarction affecting left non-dominant side; E87.20 Acidosis, unspecified; F01.53 Vascular dementia, unspecified severity, with mood disturbance; E78.5 Hyperlipidemia, unspecified; F32.A Depression, unspecified; I10 Essential (primary) hypertension; I25.10 Atherosclerotic heart disease of native coronary artery without angina pectoris; K52.89 Other specified noninfective gastroenteritis and colitis; K59.00 Constipation, unspecified; N31.9 Neuromuscular dysfunction of bladder, unspecified; L89.152 Pressure ulcer of sacral region, stage 2; E87.6 Hypokalemia; R09.02 Hypoxemia; R00.0 Tachycardia, unspecified; R82.71 Bacteriuria; Z93.59 Other cystostomy status; Z79.899 Other long term (current) drug therapy; Z11.52 Encounter for screening for COVID-19
CPT/HCPCS: 71045; 71046; 74177; 76700; 80048; 80053; 81003; 81015; 82248; 82962; 83036; 83605; 83735; 83880; 85025; 85027; 85610; 87040; 87077; 87086; 87149; 87186; 87205; 87502; 87811; 92610; 92612; 93005; 94640; 96361; 96374; 99285; Q9967

== ENCOUNTER 2024-12-26 18:59 | Inpatient (IN) | payer OTHER, SELFPAY ==
[2024-12-26] VITALS (7 sets, daily range): BP systolic 102–169; BP diastolic 55–91
[2024-12-26 16:34] LABS: Urine Character Cloudy (Clear)
[2024-12-26 16:35] LABS: Hematocrit 31.2 % (39.0-52.0); Hemoglobin 10.0 g/dL (13.0-18.0); Mean Corp Hgb Conc. 32.1 g/dL (33.0-37.0); Mean Corpuscular Volume 83.9 fL (80.0-94.0); Nucleated Red Blood Cells % 0 % (-); Platelet Count 307 10^3/uL (130-400); Red Cell Dist. Width 14.5 % (11.5-14.5)
[2024-12-26 16:47] LABS: ALT (SGPT) 26 U/L (0-50); AST (SGOT) 29 U/L (17-59); Albumin 3.5 g/dl (3.5-5.0); Alkaline Phosphatase 151 U/L (38-126); Blood Urea Nitrogen 19 mg/dl (9-20); Calcium 8.8 mg/dl (8.4-10.2); Carbon Dioxide 26 mmol/L (22-30); Chloride 102 mmol/L (98-107); Estimated Creatinine Clearance 53 ml/min; Glucose 193 mg/dl (70-99); Potassium 3.4 mmol/L (3.5-5.1); Sodium 137 mmol/L (135-145); Total Protein 6.9 g/dl (6.3-8.2); eGFR > 60.00
[2024-12-26 16:53] LABS: Urine Squamous Cell 0-2 /LPF (Few)
[2024-12-26 16:57] LABS: Urine White Cell 50-60 /HPF (0-5)
--- NOTE | 2024-12-26 17:43 | ED.GENMED ---
History of Present Illness
General
Chief Complaint: Abnormal Lab Value
Source: correction
Exam Limitations: none
Time Seen by Provider: 12/26/24 16:31
Nursing documentation reviewed up to this point in time: agreed with
History of Present Illness
History of Present Illness:
Patient sent to ED by correction for elevated WBC. Patient is afebrile. He has a suprapubic tube that was changed on 12/13. COncern that he now has UTI. Patient is awake and alert, in no distress. VSS. He denies any ppain
Past History
Past History
ED Past Medical History: CAD, HTN, Hypercholesterolemia, Psychiatric (depression) and Other (chronic constipation, )
ED Past Surgical History: Urological (suprapubic catheter)
Review of Systems
Review of Systems
Allergies reviewed?: Yes
All Other Systems: ROS reviewed and negative except as documented in HPI and ROS
Constitutional: Reports no symptoms
EENT: Reports no symptoms
Respiratory: Reports no symptoms
Cardiac: Reports no symptoms
ABD/GI: Reports no symptoms
: Reports other (suprapubic catheter)
Musculoskeletal: Reports no symptoms
Skin: Reports no symptoms
Neurological: Reports no symptoms
Psychiatric: Reports no symptoms
Phy Exam
General Physical Exam
General Presentation: no apparent distress
General age: appears stated age
General Skin: warm and dry
General Habitus: normal
Cardiovascular Exam
Cardiovascular Exam: regular rate/rhythm
Pulmonary Exam
Pulmonary Exam: lungs clear and no respiratory distress
Gastrointestinal Exam
Gastrointestinal Exam: non tender, soft, no organomegaly and non distended
Musculoskeletal Exam
Musculoskeletal Exam: neuro vasc intact
Skin Exam
Skin Exam: normal color, warm/dry and no rash
Psychiatric Exam
Psychiatric Exam: normal mood/affect
Sepsis
Sepsis Screening
Sepsis Assessment: Sepsis Ruled Out
Sepsis Screen
Sepsis Screen: Sepsis Ruled Out
Date: 12/26/24
Time: 23:07
Course
Orders/Labs/Results
Orders:
Orders
12/26/24 Dinner
Cholesterol Lowering
At Your Request: Full Participation
Cholesterol Lowering: Sodium, 2 Gram
12/26/24 16:21
Electrocardiogram (*1) Urgent
Reason for Study: Other
Other Reason for Exam: Possible Sepsis
Cardiac Monitoring- Treatment ONCE
EKG- Treatment ONCE
IV Insert/Care/Rem.- Treatment PRN
12/26/24 16:22
Complete Blood Count/With Diff Urgent
Comprehensive Metabolic Panel Urgent
12/26/24 16:23
Urinalysis Reflex To Culture Urgent
Date Specimen was Collected: 12/26/24
Time Specimen was Collected: 16:21
Urine Microscopic Reflex Cult Urgent
Urine Culture Urgent
FEI Source: U
Specimen Description:
Date Specimen was Collected: 12/26/24
Time Specimen was Collected: 16:21
12/26/24 16:49
Lactic Acid Urgent
Blood Culture Urgent
FEI Source: Blood/Venous
Specimen Description:
12/26/24 17:40
0.9% Sodium Chloride 1000 ml [Nss] 1,000 ml IV BOLUS
12/26/24 17:49
Cefepime HCl [Maxipime] 2,000 mg IV NOW STA
12/26/24 17:53
Sterile Water [Sterile Water For Injection] 10 ml .ROUTE .STK-MED ONE
12/26/24 18:37
Admit/Transfer Patient As Directed
Co-Sign Provider:
Level of Care: Inpatient admission
Assign to:: Telemetry
Physician / Group: Yudith Lares
Diagnosis: sepsis, UTI
Reason for Telemetry: Arrhythmia
Date to Stop Telemetry: 12/29/24
Time to Stop Telemetry: 11:00
Reason for Hospitalization: sepsis, UTI
Expected length of stay greater than two midnights?: Yes
ELOS- Estimated Length of Stay in days: 2
I certify the patient meets the requirements for IP care: Yes
12/26/24 18:38
PRN Pain Medication Management As Directed
May give lesser potent ordered pain med per pt: Yes
preference::
Protocol:: Medication orders for pain may be administered in a
manner that supports deferring to patient preference
when the pt is:
- Requesting an ordered lesser potent pain medication.
Least to most potent pain medications are defined
as: acetaminophen < NSAID < tramadol < opioids
(morphine, oxycodone, hydromorphone).
- Requesting a lesser dose of the same medication IF
ORDERED.
- Requesting a less intrusive route of administration
if both routes are prescribed by the provider (PO <
IV).
12/26/24 18:39
Code Status As Directed
Resuscitation Status: Full Code
Based on pt advanced directive or healthcare POA form: Yes
Physician note:: reviewed facility paperwork, it notes ABDIAS reads full code
12/26/24 18:58
PRN Pain Medication Management As Directed
May give lesser potent ordered pain med per pt: Yes
preference::
Protocol:: Medication orders for pain may be administered in a
manner that supports deferring to patient preference
when the pt is:
- Requesting an ordered lesser potent pain medication.
Least to most potent pain medications are defined
as: acetaminophen < NSAID < tramadol < opioids
(morphine, oxycodone, hydromorphone).
- Requesting a lesser dose of the same medication IF
ORDERED.
- Requesting a less intrusive route of administration
if both routes are prescribed by the provider (PO <
IV).
12/26/24 20:13
Acetaminophen [Tylenol] 650 mg PO Q4HPRN PRN
12/26/24 20:38
0.9% Sodium Chloride 1000 ml [Nss] 1,000 ml IV 80 mls/hr
Diclofenac 1% Topical Gel See Protocol TOPICAL BID
Apply 2 or 4 grams as per protocol to the following joints:: Other joint(s)
Other joint/location to apply to:: left lower back and left hip
Grams to be applied to other indicated joint/location:: 2
Gabapentin [Neurontin] 100 mg PO BID
Sennosides [Senokot] 17.2 mg PO BID
12/26/24 20:38
Activity As Directed
Activity Level: As Tolerated
Vital Signs As Directed
Frequency: Per unit guidelines
Weight As Directed
Frequency: Once
Comment: on admission
DX Deep Vein Thrombosis Video Routine
12/26/24 22:00
Atorvastatin [Lipitor] 20 mg PO HS
Melatonin 3 mg PO HS
Zinc Oxide 20% [Zinc Oxide Ointment] See Dose Instructions TOPICAL TID
12/27/24 06:00
Basic Metabolic Panel IN AM
Complete Blood Count/No Diff IN AM
Cefepime HCl [Maxipime] 2,000 mg IV Q12H
12/27/24 08:00
Clopidogrel Bisulfate [Plavix] 75 mg PO DAILY
Duloxetine Delayed Release [Cymbalta Delayed Release] 60 mg PO DAILY
Lactobac/Bifidobac [Visbiome] 1 cap PO DAILY
Magnesium l-Lactate [Mag-Tab Sr] 84 mg PO DAILY
Polyethylene Glycol Powder [Miralax] 17 grams PO DAILY
Valsartan [Diovan] 80 mg PO DAILY
12/27/24 18:00
Enoxaparin Sodium [Lovenox] 40 mg SC QPM
12/29/24 11:00
DC Protocol for Telemetry ONCE
Abnormal Lab Results
12/26/24 12/26/24 12/26/24
16:22 16:23 16:49
WBC 21.2 H 10^3/uL
(4.8-10.8)
RBC 3.72 L 10^6/uL
(4.70-6.10)
Hgb 10.0 L g/dL
(13.0-18.0)
Hct 31.2 L %
(39.0-52.0)
MCH 26.9 L pg
(27.0-31.0)
MCHC 32.1 L g/dL
(33.0-37.0)
Abs Immat Gran (auto) 0.1 H 10^3/uL
(0-0.05)
Absolute Neuts (auto) 19.8 H 10^3/uL
(1.4-6.5)
Absolute Lymphs (auto) 0.5 L 10^3/uL
(1.2-3.4)
Absolute Monos (auto) 0.8 H 10^3/uL
(0.1-0.6)
Neutrophils % 93.4 H %
(42.2-75.2)
Lymphocytes % 2.1 L %
(20.5-51.1)
Potassium 3.4 L mmol/L
(3.5-5.1)
Glucose 193 H mg/dl
(70-99)
Lactic Acid 2.7 H mmol/L
(0.7-2.0)
Alkaline Phosphatase 151 H U/L
(38-126)
Ur Occult Blood Reflex 2+ A
(Negative)
Leukocyte Esterase Rfl 3+ A
(Negative)
Urine RBC 3-6 A /HPF
(0-2)
Urine WBC (Reflex) 50-60 A /HPF
(0-5)
Urine Bacteria (Reflex) Many A
(Negative)
Urine Albumin (Reflex) 3+ A
(Neg - Trace)
12/26/24 16:22
12/26/24 16:22
Vital Signs
Initial and Last Documented VS:
Initial Vital Signs
Temp Pulse Resp BP Pulse Ox
97.7 F 93 16 102/55 97
12/26/24 16:12 12/26/24 16:12 12/26/24 16:12 12/26/24 16:12 12/26/24 16:12
Last Documented Vital Signs
Temp Pulse Resp BP Pulse Ox
101.1 F H 116 18 169/81 95
12/26/24 22:28 12/26/24 20:53 12/26/24 20:53 12/26/24 20:53 12/26/24 20:53
*Pulse Oximetry
SaO2: 96
Oxygen Mode of Delivery: Room air
Patient hypoxic: no
*Critical Care Note
Total Time (30-74mins, 75-104mins- exclusive of procedures): Not Applicable
ED Attending Note
-
Portions of this chart may have been created with voice recognition software.� Occasional wrong word or��sound alike� substitutions may have occurred due to the inherent limitations of voice recognition software.
Discharge Plan
Departure
Patient Disposition: Admit
Date of Disposition: 12/26/24
Time of Disposition: 17:50
Presentation/result/management discussed w/ accepting MD/DO: Hospitalist
Patient with high blood pressure during this ER visit?: No
Condition: Fair
Covid-19: Not Applicable
Discharge Problem:
Acute UTI
Interventions
Interventions:
*Risk Screen - Suicide Last Done: 12/26/24 16:12
*General Assessment Last Done: 12/26/24 16:12
*Neglect/Abuse Screening Last Done: 12/26/24 16:12
*ED- Fall Risk Assessment Last Done: 12/26/24 16:12
*ED COVID-19 Vaccine History Last Done: 12/26/24 16:12
*Nursing Disposition Last Done: 12/26/24 20:34
Discharge Date and Time
Discharge Date/Time: 12/26/24 20:35
[2024-12-26] MEDS: MAXIPIME 2000 MG IV (17:55)
[2024-12-26] MEDS: NSS 1000 IV ×2 (17:56→22:13)
--- NOTE | 2024-12-26 18:00 | HPS.HSE ---
Family Physician
-
Family Physician: Kimberli Burrell
Chief Complaint
-
abnormal out patient labs
History of Present Illness
Patient is a 84-year-old male with past medical significant hypertension, CVA, dementia, dyslipidemia and depression who presented to [facility] ED for evaluation of abnormal out patient labs. Patient resides at [facility] and was sent for
evaluation for concerns for sepsis. Patient presents AAO and pleasantly confused. He is a poor historian but does state he recently had some nausea and vomiting. He has suprapubic catheter in place draining concentrated cloudy urine with some
sediment. Facility reported that tube was changed 12/13/2024. Denies fevers, cough, shortness of breath, constipation or diarrhea.
Medical History
Past Medical History
Past Medical History: Reports Other
Additional Past Medical History:
hypertension
CVA
dementia
dyslipidemia
depression
Past Surgical History: Reports Other
Additional Past Surgical History:
cholecystectomy
Social History
Unable to obtain full social history at this time due to: Dementia
Family History
Family History: Not pertinent
Allergies / Home Medications
Allergies reflects when Allergies were last updated in [employer].
Home Medications with original date entered in [employer]
Allergy/Medication List:
Allergies
Allergy/AdvReac Type Severity Reaction Status Date / Time
No Known Allergies Allergy Unverified 10/15/24 08:45
Home Medications
acetaminophen 325 mg tablet (Tylenol) 650 mg PO Q4HPRN PRN general discomfort 10/15/24
atorvastatin 20 mg tablet (Lipitor) 20 mg PO HS High Cholesterol 10/15/24
bisacodyl 10 mg rectal suppository (Dulcolax (bisacodyl)) 10 mg WI [id number] PRN IF NO BM BY 12 SHIFTS 10/15/24
clopidogrel 75 mg tablet (Plavix) 75 mg PO DAILY Blood Clot Prevention/Tx 10/15/24
diclofenac sodium 1 % topical gel 0 g topical BID left lower back and hip 10/15/24
ergocalciferol (vitamin D2) 1,250 mcg (50,000 unit) capsule 1,250 mcg PO QMONTH Supplement 10/15/24
gabapentin 100 mg capsule 100 mg PO BID Pain 10/15/24
magnesium hydroxide 400 mg/5 mL oral suspension (Milk of Magnesia) 2,400 mg PO [id number] PRN if no BM after 9 shifts 10/15/24
melatonin 3 mg tablet 3 mg PO HS Sleep 10/15/24
sennosides 8.6 mg tablet (senna) 17.2 mg PO BID Constipation 10/15/24
sodium phosphates 19 gram-7 gram/118 mL enema (Fleet Enema) 118 ml WI .[id number] PRN if no Bm on 4th day 10/15/24
valsartan 80 mg tablet 80 mg PO DAILY Blood Pressure 10/15/24
Lactobacil rhamnosus GG 10 billion cell-inulin 200 mg sprinkle capsule ([employer]) 1 cap PO DAILY 12/26/24
duloxetine 60 mg capsule,delayed release 60 mg PO DAILY 12/26/24
magnesium oxide 400 mg PO DAILY 12/26/24
polyethylene glycol 3350 17 gram oral powder packet 17 g PO DAILY 12/26/24
zinc oxide 12 % topical cream (Duane Protect (zinc oxide)) 1 applic topical TID buttocks/nevaeh area 12/26/24
zinc oxide 20 % topical ointment 1 applic topical TID apply to R ischium/glute 12/26/24
Review of Systems
-
Unable to obtain full review of systems at this time due to: Dementia
History Source: Patient
Constitutional: Reports Other (abnormal out patient labs )
Abdomen/GI: Reports Nausea and Vomiting
Physical Exam
Vital Signs
Vital Signs
Temp Pulse Resp BP Pulse Ox
97.7 F 95 20 118/57 96
12/26/24 16:12 12/26/24 17:00 12/26/24 17:00 12/26/24 17:00 12/26/24 17:48
Physical Exam
General: Well Developed, Well Nourished, No Apparent Distress, Conversant and Obese
HEENT: NormoCephalic, Moist mucous membranes, Atraumatic, Nose Appears Normal, Ears Appear Normal and Hearing Impaired
Respiratory: Clear
Cardiac: S1/S2, Regular Rhythm and Tachycardia
Breast: Deferred by me
GI: Soft, Non Tender, Non Distended and Normal Bowel Sounds
Rectal: Deferred by Provider
Genito-urinary: Suprapubic Tube
Musculoskeletal: No Clubbing, No Cyanosis, No Edema and Other (left hand contracted, hemiplegia left side )
Skin: IV/Catheter Site
Neuro: Awake, Alert and Nonfocal/grossly intact
Psych: Calm and Apparent Dementia
Laboratory Results
-
12/26/24 16:22
12/26/24 16:22
Laboratory Results
Lactic Acid 2.7 mmol/L (0.7-2.0) H 12/26/24 16:49
Total Bilirubin 0.6 mg/dl (0.2-1.3) 12/26/24 16:22
AST 29 U/L (17-59) 12/26/24 16:22
ALT 26 U/L (0-50) 12/26/24 16:22
Alkaline Phosphatase 151 U/L (38-126) H 12/26/24 16:22
Data Reviewed
-
Medical Tests (Nuc Med, Echo, EKG etc): Report Reviewed by me (EKG: SINUS RHYTHM WITH PREMATURE ATRIAL COMPLEXES RIGHT BUNDLE BRANCH BLOCK MINIMAL VOLTAGE CRITERIA FOR LVH, MAY BE NORMAL VARIANT ( R in aVL ))
Lab Data: Labs Reviewed by me (WBC 21.2, Neut 93.4, Lactic 2.7)
Impression/Plan
-
IMPRESSION/PLAN:
#sepsis likely 2/2 UTI
#neurogenic bladder
chronic suprapubic catheter
WBC 21.2, Neut 93.4, Lactic 2.7
EKG: SINUS RHYTHM WITH PREMATURE ATRIAL COMPLEXES
RIGHT BUNDLE BRANCH BLOCK
MINIMAL VOLTAGE CRITERIA FOR LVH, MAY BE NORMAL VARIANT ( R in aVL )
UA: indicative of UTI
Urine Cx: pending
Blood Cx: pending
- Admit to telemetry
- IVF NSS 80cc/hr for 1 liter
- IV Cefepime 2gm q24
- supportive care
- one blood cx drawn, redraw if no improvement
#hypertension
- continue valsartan
#CVA
left hemiparesis
- continue clopidogrel
#dyslipidemia
- continue atorvastatin
#depression
- continue duloxetine
#dementia
Code status: full code
DVT prophylaxis: Lovenox sq
--- NOTE | 2024-12-26 19:12 | W.PN.UPDATE ---
Update Note
Progress Note Update
This is an addendum to H&P written by VESSEL CREW MEMBER Neda Mora
I saw and examined the patient.
The VESSEL CREW MEMBER's note was reviewed and I agree with the note.
Comment:
Mr. Eddie Barnes is a 84 yo man with hx CVA with left hemiparesis, essential HTN, HLD, neurogenic bladder with chronic suprapubic catheter presents to the ER with elevated WBC noted at [facility]. Patient's suprapubic catheter was exchanged
12/13.
Triage VS: T 97.7, P 93, RR 16, BP 102/55, SpO2 97%
On exam patient is in no acute distress, hard of hearing, left hemiparesis. Lungs clear, no abdominal pain, suprapubic catheter, no LE swelling.
LABS: WBC 21.2, Hg 10, PLT 307, Na 137, K+ 3.4, CO2 26, BUN 19, Cr 1.0, Glucose 193, Lactate 2.7, T. Bili 0.6, AST 29, ALT 26, Alk PHos 151
MAR: IV Cefepime, IVF
Severe sepsis 2/2 UTI in setting of suprapubic catheter
-admit to telemetry
-continue IV Cefepime
-IVF
-follow up cultures
-will ask if Urology can change catheter in setting of infection
CVA with hx left hemiparesis - [employer] Plavix/Statin
Essential HTN - [employer] Valsartan
HLD - [employer] Statin
DVT PPx
Remainder of plan per VESSEL [employer]W MEMBER note
76 minutes spent on patient care
[2024-12-26] MEDS: KCL 20 MEQ PO (19:28)
[2024-12-26 19:59] LABS: COVID-19 Antigen Negative (Negative)
[2024-12-26] MEDS: TYLENOL 650 MG PO (20:17)
[2024-12-26] MEDS: NSS 500 IV (20:18)
[2024-12-26] MEDS: MOTRIN 200 MG PO (21:44)
[2024-12-26] MEDS: DICLOFENAC 1% TOPICAL GEL 100 GRAM TOPICAL (22:42)
[2024-12-26] MEDS: LIPITOR 20 MG PO (22:43)
[2024-12-26] MEDS: NEURONTIN 100 MG PO (22:43)
[2024-12-26] MEDS: SENOKOT 17.2 MG PO (22:43)
[2024-12-26] MEDS: MELATONIN 3 MG PO (22:43)
--- NOTE | 2024-12-27 04:43 | TRANSFER ---
Pt transferred to 3W from ED via stretcher. Pt pulled over to hospital bed. Pt is AAOx3, hard of hearing, and forgetful. Temp in ED 102.2 and PO Tylenol given prior to transfer. Vital signs BP 169/81 P 116 T 103.0 upon arrival to unit. FIELD REP
notified. Cooling blanket and PO Motrin ordered. Pt oriented to room, call lanza within reach, plan of care ongoing.
[2024-12-27] MEDS: STERILE WATER FOR INJECTION 10 ML IV ×2 (05:14→17:02)
[2024-12-27] MEDS: MAXIPIME 2000 MG IV ×2 (05:15→17:02)
[2024-12-27 05:48] LABS: Hematocrit 27.1 % (39.0-52.0); Hemoglobin 8.8 g/dL (13.0-18.0); Mean Corp Hgb Conc. 32.5 g/dL (33.0-37.0); Mean Corpuscular Volume 82.1 fL (80.0-94.0); Platelet Count 229 10^3/uL (130-400); Red Cell Dist. Width 14.4 % (11.5-14.5)
[2024-12-27 06:00] VITALS: BMI 25.9
[2024-12-27 06:32] LABS: Blood Urea Nitrogen 21 mg/dl (9-20); Calcium 8.3 mg/dl (8.4-10.2); Carbon Dioxide 21 mmol/L (22-30); Chloride 107 mmol/L (98-107); Estimated Creatinine Clearance 67 ml/min; Glucose 125 mg/dl (70-99); Potassium 3.7 mmol/L (3.5-5.1); Sodium 135 mmol/L (135-145); eGFR > 60.00
[2024-12-27 07:00] VITALS: BP 149/73
[2024-12-27] MEDS: CYMBALTA DELAYED RELEASE 60 MG PO (08:06)
[2024-12-27] MEDS: VISBIOME 1 CAP PO (08:07)
[2024-12-27] MEDS: PLAVIX 75 MG PO (08:07)
[2024-12-27] MEDS: NEURONTIN 100 MG PO ×2 (08:07→19:35)
[2024-12-27] MEDS: MAG-TAB SR PO (08:07)
[2024-12-27] MEDS: MIRALAX PO (08:07)
[2024-12-27] MEDS: SENOKOT PO ×2 (08:07→19:43)
[2024-12-27] MEDS: DIOVAN 80 MG PO (08:07)
[2024-12-27] MEDS: DICLOFENAC 1% TOPICAL GEL 100 GRAM TOPICAL ×2 (08:08→19:35)
--- NOTE | 2024-12-27 10:50 | CM ---
Reviewed the chart notes and spoke with the patient at the bedside. 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 The patient is bed/wheelchair bound. Nelson lift is used for transfers. The patient anticipates being
discharged back to [facility] when medically stable. No auth needed unless being discharged on IV abx. CM continues to be available to patient/family and is monitoring medical plan for needs at discharge.
Plan: Discharge back to [facility] when medically stable.
[2024-12-27 11:00] VITALS: BP 156/76
--- NOTE | 2024-12-27 11:03 | W.PN.URO.CBU ---
Today's Communication / Plan
-
prepare room please with necessary items to change sop tube sat thank you
Assessment / Plan
-
sp tube and sepsis will continue uiv abs and as pt improves will change out sp tube perhaps sat am
Diagnosis
-
Date of Service: December 27, 2024
-
Patient Diagnosis:
complex uti / sepsis syndrome in pt with asp tube changed 1 week ago
Post Op Day:
Subjective
-
confi=ued not accurate nurses note pt improving
Objective
-
Vital Signs
Temp Pulse Resp BP Pulse Ox
97.9 F 69 18 149/73 98
12/27/24 07:00 12/27/24 07:00 12/27/24 07:00 12/27/24 07:00 12/27/24 07:00
Laboratory Results
12/27/24 05:27
12/27/24 05:27
Review of Systems
-
Unable to obtain full review of systems at this time due to: Dementia
: Difficulty Voiding
Physical Exam
-
General - well developed, well nourished, no acute distress
Chest - clear bilaterally
Abdomen - soft, non-tender, positive bowel sounds, no CVAT, no incisional pain or distention
Genitalia - normal
Rectal - normal
Skin - warm & dry with no rash
Neuro - AOx3, no motor deficits
Extremities - no clubbing, no cyanosis, no edema
Incision - clean, dry
Dressing - clean, dry, intact
Care Review
Data Reviewed
Discussed with: Hospitalist and Nursing
CT Scan: Image Pers Reviewed
--- NOTE | 2024-12-27 12:12 | W.PN.HOSP.TC ---
Today's Communication/Plan
-
Assessment / Plan
Assessment / Plan
General: No Apparent Distress, Comfortable and Conversant
HEENT: NormoCephalic, Moist mucous membranes, Atraumatic
Respiratory: Clear and Non Labored Respirations
Cardiac: S1/S2 and Regular Rhythm; No Rub or Gallop
GI: Soft, suprapubic catheter in place draining clear yellow urine
Musculoskeletal: No Edema, no deformity
Skin: Warm and dry
: NO An
Neuro: Awake, Alert, left hemiparesis
Psych: Calm and Intact Judgment/Insight
Mr. Mireles is an 84-year-old male with a medical history of CVA (left hemiparesis), hypertension, and neurogenic bladder (chronic suprapubic catheter) who presented from his nursing facility with cloudy urine from his SPC and leukocytosis. He was
febrile on admission with a Tmax of 103 �F, lactic acid 2.7, and a leukocytosis of 21,000. He was started on antibiotics with IV cefepime and admitted for further evaluation and management of sepsis secondary to UTI.
Sepsis secondary to UTI:
- Status post bolus of 2.5 L resuscitative fluids
- Lactic acidosis resolved
- Leukocytosis improving
- Blood cultures growing Enterococcus faecalis
- Continue IV cefepime pending final cultures and sensitivities
- Urology following and planning suprapubic catheter exchange tomorrow 7/ at bedside
Hypokalemia:
- Mild, resolved
- Will continue to monitor
Hypertension:
- Continue home valsartan 80 mg daily
Cerebrovascular disease:
- Status post stroke with residual left hemiparesis
- Continue Plavix and statin
- Continue scheduled bowel regimen
- Neurogenic bladder, maintain suprapubic catheter which will be exchanged 7/ at bedside by urology
Dementia:
- Alert and pleasant
- Continue duloxetine
DVT prophylaxis: Lovenox
CODE STATUS: Full code
Total time spent on today's encounter was 35 minutes
Anticipated Discharge: 24 - 48 hours
Subjective/Interval History
-
Date of Service: December 27, 2024
Patient was seen and examined at bedside this morning. No acute distress. Continue antibiotics and urology planning suprapubic catheter exchange tomorrow.
Objective Data
-
Labs:
Laboratory Results
12/27/24
05:27
WBC 12.5 H
Hgb 8.8 L
Hct 27.1 L
Plt Count 229 D
Sodium 135
Potassium 3.7
Chloride 107
Carbon Dioxide 21 L
BUN 21 H
Creatinine 0.8
Glucose 125 H
Calcium 8.3 L
Vital Signs:
Vital Signs
Temp Pulse Resp BP Pulse Ox
98.7 F 99 18 156/76 97
12/27/24 11:00 12/27/24 11:00 12/27/24 11:00 12/27/24 11:00 12/27/24 11:00
Review of Systems
-
History Source: Patient
All other systems: Reviewed and negative
Genitourinary: Reports UTI
Physical Exam
-
General: No Apparent Distress
[2024-12-27 15:00] VITALS: BP 180/88
[2024-12-27 16:30] VITALS: BP 162/76
[2024-12-27] MEDS: NSS 1000 IV (17:02)
[2024-12-27] MEDS: LOVENOX 40 MG SC (17:02)
[2024-12-27 19:03] VITALS: BP 169/94
[2024-12-27] MEDS: MELATONIN 3 MG PO (21:02)
[2024-12-27] MEDS: LIPITOR 20 MG PO (21:02)
[2024-12-27 23:26] VITALS: BP 152/88
[2024-12-28] MEDS: MAXIPIME 2000 MG IV (05:32)
[2024-12-28] MEDS: STERILE WATER FOR INJECTION 10 ML IV (05:32)
[2024-12-28 06:26] VITALS: BMI 26.2
[2024-12-28 07:00] VITALS: BP 170/83
[2024-12-28] MEDS: DIOVAN 80 MG PO (07:50)
[2024-12-28] MEDS: PLAVIX 75 MG PO (07:50)
[2024-12-28] MEDS: VISBIOME 1 CAP PO (07:50)
[2024-12-28] MEDS: NEURONTIN 100 MG PO ×2 (07:50→19:40)
[2024-12-28] MEDS: CYMBALTA DELAYED RELEASE 60 MG PO (07:50)
[2024-12-28] MEDS: SENOKOT PO ×2 (07:51→20:36)
[2024-12-28] MEDS: MAG-TAB SR PO (07:51)
[2024-12-28] MEDS: DICLOFENAC 1% TOPICAL GEL 100 GRAM TOPICAL ×2 (07:51→19:40)
[2024-12-28] MEDS: MIRALAX PO (07:51)
[2024-12-28 09:45] LABS: Hematocrit 24.4 % (39.0-52.0); Hemoglobin 8.0 g/dL (13.0-18.0); Mean Corp Hgb Conc. 32.8 g/dL (33.0-37.0); Mean Corpuscular Volume 80.8 fL (80.0-94.0); Nucleated Red Blood Cells % 0 % (-); Platelet Count 188 10^3/uL (130-400); Red Cell Dist. Width 14.5 % (11.5-14.5)
[2024-12-28 10:20] LABS: Blood Urea Nitrogen 15 mg/dl (9-20); Calcium 7.6 mg/dl (8.4-10.2); Carbon Dioxide 23 mmol/L (22-30); Chloride 103 mmol/L (98-107); Estimated Creatinine Clearance 76 ml/min; Glucose 131 mg/dl (70-99); Potassium 2.7 mmol/L (3.5-5.1); Sodium 131 mmol/L (135-145); eGFR > 60.00
--- NOTE | 2024-12-28 10:41 | W.PN.URO.CBU ---
Today's Communication / Plan
-
continue present care
Assessment / Plan
-
sp tube and sepsis will continue uiv abs pos blood cxs . did g=[change sp tube today
Diagnosis
-
Date of Service: December 28, 2024
-
Patient Diagnosis:
Post Op Day:
Patient Diagnosis:
complex uti / sepsis syndrome in pt with asp tube changed 1 week ago
Post Op Day:
Subjective
-
feeling better
Objective
-
Vital Signs
Temp Pulse Resp BP Pulse Ox
97.5 F 104 17 170/83 95
12/28/24 07:00 12/28/24 07:00 12/28/24 07:00 12/28/24 07:00 12/28/24 07:00
Intake and Output
12/27/24 12/28/24 12/29/24
06:59 06:59 06:59
Intake Total 1380 / 1380
Output Total 1300 / 1300
Balance 80 / 80
Intake:
Oral fluids 1380 / 1380
Output:
Urine, An 1300 / 1300
Laboratory Results
12/28/24 09:33
12/28/24 09:33
Review of Systems
-
: Difficulty Voiding
Physical Exam
-
General - well developed, well nourished, no acute distress
Chest - clear bilaterally
Abdomen - soft, non-tender, positive bowel sounds, no CVAT, no incisional pain or distention
Genitalia - normal
Rectal - normal
Skin - warm & dry with no rash
Neuro - AOx3, no motor deficits
Extremities - no clubbing, no cyanosis, no edema
Incision - clean, dry
Dressing - clean, dry, intact
Counseling
-
no gu changes
Care Review
Data Reviewed
Discussed with: Nursing
[2024-12-28 11:00] VITALS: BP 151/85
[2024-12-28] MEDS: KCL 270 MEQ IV (11:27)
[2024-12-28] MEDS: KLOR-CON 20 MEQ PO (11:36)
--- NOTE | 2024-12-28 12:19 | PTCARENOTE ---
Pt. daughter at bedside and states patient came in to the ED with his hearing aids from home. Pt. has not had his hearing aids in or at his bedside while under this RN's care. This RN called down to security lost and found but security does not have
any hearing aids. This RN notified the mammography supervisor of the situation.
--- NOTE | 2024-12-28 13:00 | W.PN.HOSP.TC ---
Today's Communication/Plan
-
Assessment / Plan
Assessment / Plan
General: No Apparent Distress, Comfortable and Conversant
HEENT: NormoCephalic, Moist mucous membranes, Atraumatic
Respiratory: Clear and Non Labored Respirations
Cardiac: S1/S2 and Regular Rhythm; No Rub or Gallop
GI: Soft, suprapubic catheter in place draining clear yellow urine
Musculoskeletal: No Edema, no deformity
Skin: Warm and dry
: NO An
Neuro: Awake, Alert, left hemiparesis
Psych: Calm and Intact Judgment/Insight
Mr. Mireles is an 84-year-old male with a medical history of CVA (left hemiparesis), hypertension, and neurogenic bladder (chronic suprapubic catheter) who presented from his nursing facility with cloudy urine from his SPC and leukocytosis. He was
febrile on admission with a Tmax of 103 �F, lactic acid 2.7, and a leukocytosis of 21,000. He was started on antibiotics with IV cefepime and admitted for further evaluation and management of sepsis secondary to UTI.
Sepsis secondary to UTI:
- Status post bolus of 2.5 L resuscitative fluids
- Lactic acidosis resolved
- Leukocytosis improving
- Blood cultures growing Enterococcus faecalis, antibiotics switched to ampicillin 2 g every 4 hours
- Follow-up final cultures and sensitivities
- Urology following and exchanged suprapubic catheter today 12/28 at bedside
Hypokalemia:
- Dropped significantly down to 2.7 on labs this morning
- Will replete orally and IV, will monitor
- Check magnesium level
Hyponatremia:
- Mild with a serum sodium of 131 on labs today
- Will monitor
Hypertension:
- Continue home valsartan 80 mg daily
Cerebrovascular disease:
- Status post stroke with residual left hemiparesis
- Continue Plavix and statin
- Continue scheduled bowel regimen
- Neurogenic bladder, maintain suprapubic catheter which will be exchanged 7/ at bedside by urology
Dementia:
- Alert and pleasant
- Continue duloxetine
DVT prophylaxis: Lovenox
CODE STATUS: Full code
Total time spent on today's encounter was 35 minutes
Anticipated Discharge: > 48 hours
Subjective/Interval History
-
Date of Service: December 28, 2024
Patient was seen and examined at bedside this morning. Feeling well. Urology present and about to exchange suprapubic catheter.
Objective Data
-
Labs:
Laboratory Results
12/28/24
09:33
WBC 8.6
Hgb 8.0 L
Hct 24.4 L
Plt Count 188
Sodium 131 L
Potassium 2.7 L* D
Chloride 103
Carbon Dioxide 23
BUN 15
Creatinine 0.7
Glucose 131 H
Calcium 7.6 L
Vital Signs:
Vital Signs
Temp Pulse Resp BP Pulse Ox
98.7 F 93 17 151/85 96
12/28/24 11:00 12/28/24 11:00 12/28/24 11:00 12/28/24 11:00 12/28/24 11:00
I&O
12/27/24 12/28/24 12/29/24
06:59 06:59 06:59
Intake Total 1380 / 1380
Output Total 1300 / 1300
Balance 80 / 80
Review of Systems
-
History Source: Patient
All other systems: Reviewed and negative
Physical Exam
-
General: No Apparent Distress
[2024-12-28] MEDS: AMPICILLIN 108 MG IV ×3 (13:57→21:43)
[2024-12-28 15:00] VITALS: BP 145/93
[2024-12-28] MEDS: LOVENOX 40 MG SC (17:18)
[2024-12-28 19:40] VITALS: BP 148/82
[2024-12-28] MEDS: LIPITOR 20 MG PO (21:43)
[2024-12-28] MEDS: MELATONIN 3 MG PO (21:43)
[2024-12-28 23:50] VITALS: BP 150/70
[2024-12-29] MEDS: AMPICILLIN 108 MG IV ×6 (02:02→21:37)
[2024-12-29 03:40] VITALS: BP 158/78
[2024-12-29 07:00] VITALS: BP 165/75
[2024-12-29 07:15] LABS: Hematocrit 28.5 % (39.0-52.0); Hemoglobin 9.3 g/dL (13.0-18.0); Mean Corp Hgb Conc. 32.6 g/dL (33.0-37.0); Mean Corpuscular Volume 80.3 fL (80.0-94.0); Platelet Count 227 10^3/uL (130-400); Red Cell Dist. Width 14.4 % (11.5-14.5)
[2024-12-29 07:33] LABS: Blood Urea Nitrogen 14 mg/dl (9-20); Calcium 8.0 mg/dl (8.4-10.2); Carbon Dioxide 24 mmol/L (22-30); Chloride 106 mmol/L (98-107); Estimated Creatinine Clearance 76 ml/min; Glucose 138 mg/dl (70-99); Magnesium 2.2 mg/dl (1.6-2.3); Potassium 2.9 mmol/L (3.5-5.1); Sodium 136 mmol/L (135-145); eGFR > 60.00
[2024-12-29] MEDS: CYMBALTA DELAYED RELEASE 60 MG PO (08:46)
[2024-12-29] MEDS: PLAVIX 75 MG PO (08:46)
[2024-12-29] MEDS: MAG-TAB SR 84 MG PO (08:46)
[2024-12-29] MEDS: DIOVAN 80 MG PO (08:47)
[2024-12-29] MEDS: VISBIOME 1 CAP PO (08:47)
[2024-12-29] MEDS: DICLOFENAC 1% TOPICAL GEL 100 GRAM TOPICAL ×2 (08:47→20:22)
[2024-12-29] MEDS: NEURONTIN 100 MG PO ×2 (08:47→20:23)
[2024-12-29] MEDS: MIRALAX PO (08:48)
[2024-12-29] MEDS: SENOKOT PO (08:49)
--- NOTE | 2024-12-29 09:09 | W.PN.HOSP.TC ---
Today's Communication/Plan
-
see plan
Assessment / Plan
Assessment / Plan
84 M with a medical history of CVA (left hemiparesis), hypertension, and neurogenic bladder (chronic suprapubic catheter) who presented from his nursing facility with cloudy urine from his SPC and leukocytosis. He was febrile on admission with a
Tmax of 103 �F, lactic acid 2.7, and a leukocytosis of 21,000. He was started on antibiotics with IV cefepime and admitted for further evaluation and management of sepsis secondary to UTI.
Gen: NAD, Awake and alert
Eyes: EOMI, PERRLA, no scleral icterus.
Neck: supple.
CV: RRR, +S1/S2, no m/r/g.
Resp: CTAB, no rales, wheezes, or rhonchi.
Abd: +BS, soft, NT, ND
Skin: No rashes.
Neuro: CN 2-12 intact, L-hemiparesis
Psych: Normal mood and affect.
12/26/24 16:49 Blood/Venous Blood Culture - Final
Enterococcus faecalis
12/26/24 16:49 Blood/Venous Gram Stain - Final
12/26/24 16:23 Urine Urine Culture - Final
Sepsis secondary to CAUTI (POA, had SPT on admission):
-s/p sepsis bolus of 2.5L IVFs on admission
-lactic acidosis and leukocytosis have resolved
-1 of 2 BCxs with Enterococcus, cont Ampicillin
-follow repeat BCxs
-h/o neurogenic bladder
-urology following and exchanged suprapubic catheter 12/28 at bedside
Other problems:
Hypokalemia: 80meq K today
Hyponatremia, resolved
Essential Hypertension: cont valsartan
h/o CVA with residual L hemiparesis: cont Plavix/statin
Dementia: cont duloxetine
Tele reviewed, SR (cont tele for hypokalemia)
RN updated
FULL/Lovenox
Total time spent on today's encounter was 50 minutes which included time spent in counseling the patient/family regarding diagnosis and treatment plan as listed above, goals of care, and symptom management. Case was discussed with nursing staff,
specialists, and care coordinators/case management. All labs and imaging personally reviewed by me. Remainder the time spent in detailed review of previous records, lab data, imaging, and other medical provider documentation.
Anticipated Discharge: 24 - 48 hours
Subjective/Interval History
-
Date of Service: December 29, 2024
Denies acute complaints.
Objective Data
-
Labs:
Laboratory Results
12/29/24
06:15
WBC 7.2
Hgb 9.3 L
Hct 28.5 L
Plt Count 227 D
Sodium 136
Potassium 2.9 L
Chloride 106
Carbon Dioxide 24
BUN 14
Creatinine 0.7
Glucose 138 H
Calcium 8.0 L
Vital Signs:
Vital Signs
Temp Pulse Resp BP Pulse Ox
98.8 F 93 18 165/75 96
12/29/24 07:00 12/29/24 07:00 12/29/24 07:00 12/29/24 07:00 12/29/24 07:00
I&O
12/28/24 12/29/24 12/30/24
06:59 06:59 06:59
Intake Total 1380 / 1380 240 / 240
Output Total 1300 / 1300 600 / 600 1350 / 1350
Balance 80 / 80 -360 / -360 -1350 / -1350
[2024-12-29] MEDS: KCL 40 MEQ PO ×2 (09:54→14:05)
[2024-12-29 11:00] VITALS: BP 132/77
--- NOTE | 2024-12-29 11:12 | PTCARENOTE ---
Pt daughter brought in pt's right hearing aid and placed it in his right ear.
[2024-12-29 11:57] LABS: Nucleated Red Blood Cells % 0 % (-)
--- NOTE | 2024-12-29 12:39 | W.PN.URO.CBU ---
Today's Communication / Plan
-
no gu changes
Assessment / Plan
-
sp tube and sepsis will continue uiv abs pos blood cxs . urologically stable
Diagnosis
-
Date of Service: December 29, 2024
-
Patient Diagnosis:
Post Op Day:
Patient Diagnosis:
Post Op Day:
Patient Diagnosis:
complex uti / sepsis syndrome in pt with asp tube changed 1 week ago
Post Op Day:
Subjective
-
uti dementia urinary retention
Objective
-
Vital Signs
Temp Pulse Resp BP Pulse Ox
97.6 F 93 17 132/77 97
12/29/24 11:00 12/29/24 11:00 12/29/24 11:00 12/29/24 11:00 12/29/24 11:00
Intake and Output
12/28/24 12/29/24 12/30/24
06:59 06:59 06:59
Intake Total 1380 / 1380 240 / 240 108 / 108
Output Total 1300 / 1300 600 / 600 1800 / 1800
Balance 80 / 80 -360 / -360 -1692 / -1692
Intake:
Oral fluids 1380 / 1380 240 / 240
IV piggybacks 108 / 108
Output:
Urine, An 1300 / 1300 600 / 600 1350 / 1350
Suprapubic output 450 / 450
Laboratory Results
12/29/24 06:15
12/29/24 06:15
Review of Systems
-
: Difficulty Voiding
Physical Exam
-
General - well developed, well nourished, no acute distress
Chest - clear bilaterally
Abdomen - soft, non-tender, positive bowel sounds, no CVAT, no incisional pain or distention
Genitalia - normal
Rectal - normal
Skin - warm & dry with no rash
Neuro - AOx3, no motor deficits
Extremities - no clubbing, no cyanosis, no edema
Incision - clean, dry
Dressing - clean, dry, intact
[2024-12-29 15:00] VITALS: BP 168/84
[2024-12-29] MEDS: LOVENOX 40 MG SC (18:05)
[2024-12-29 19:00] VITALS: BP 168/95
[2024-12-29] MEDS: SENOKOT 17.2 MG PO (20:24)
[2024-12-29] MEDS: LIPITOR 20 MG PO (21:37)
[2024-12-29] MEDS: MELATONIN 3 MG PO (21:37)
[2024-12-29 23:00] VITALS: BP 154/74
[2024-12-30] MEDS: AMPICILLIN 108 MG IV ×6 (02:29→21:35)
[2024-12-30 03:00] VITALS: BP 134/81
--- NOTE | 2024-12-30 07:14 | PTCARENOTE ---
Oral care was not performed on patient because he stated that it was his preference to do oral care in the morning.
[2024-12-30 07:20] VITALS: BP 191/84
[2024-12-30] MEDS: VISBIOME 1 CAP PO (08:01)
[2024-12-30] MEDS: PLAVIX 75 MG PO (08:01)
[2024-12-30] MEDS: DIOVAN 80 MG PO (08:01)
[2024-12-30] MEDS: DICLOFENAC 1% TOPICAL GEL 100 GRAM TOPICAL ×2 (08:01→20:25)
[2024-12-30] MEDS: NEURONTIN 100 MG PO ×2 (08:01→20:25)
[2024-12-30] MEDS: MAG-TAB SR 84 MG PO (08:01)
[2024-12-30] MEDS: CYMBALTA DELAYED RELEASE 60 MG PO (08:01)
[2024-12-30] MEDS: SENOKOT PO ×2 (08:03→20:25)
[2024-12-30] MEDS: MIRALAX PO (08:03)
[2024-12-30 08:18] LABS: Hematocrit 27.0 % (39.0-52.0); Hemoglobin 8.6 g/dL (13.0-18.0); Mean Corp Hgb Conc. 31.9 g/dL (33.0-37.0); Mean Corpuscular Volume 81.8 fL (80.0-94.0); Nucleated Red Blood Cells % 0 % (-); Platelet Count 229 10^3/uL (130-400); Red Cell Dist. Width 14.5 % (11.5-14.5)
[2024-12-30 08:57] LABS: Blood Urea Nitrogen 13 mg/dl (9-20); Calcium 8.0 mg/dl (8.4-10.2); Carbon Dioxide 23 mmol/L (22-30); Chloride 104 mmol/L (98-107); Estimated Creatinine Clearance 76 ml/min; Glucose 118 mg/dl (70-99); Potassium 3.2 mmol/L (3.5-5.1); Sodium 135 mmol/L (135-145); eGFR > 60.00
--- NOTE | 2024-12-30 09:44 | W.PN.HOSP.TC ---
Addendum entered and electronically signed by Joseph Craven MD 12/30/24 16:55:
stage 1 sacral pressure injury, POA
Original Note:
Today's Communication/Plan
-
See plan
Assessment / Plan
Assessment / Plan
84 M with a medical history of CVA (left hemiparesis), hypertension, and neurogenic bladder (chronic suprapubic catheter) who presented from his nursing facility with cloudy urine from his SPC and leukocytosis. He was febrile on admission with a
Tmax of 103 �F, lactic acid 2.7, and a leukocytosis of 21,000. He was started on antibiotics with IV cefepime and admitted for further evaluation and management of sepsis secondary to UTI.
Gen: remains NAD, Awake and alert
Eyes: EOMI, PERRLA, no scleral icterus.
Neck: supple.
CV: remains RRR, +S1/S2, no m/r/g.
Resp: CTAB anteriorly, no rales, wheezes, or rhonchi.
Abd: +BS, soft, NT, ND
Skin: No rashes.
Neuro: CN 2-12 intact, L-hemiparesis
Psych: Normal mood and affect.
12/29/24 06:15 Blood/Venous Blood Culture - Preliminary
No Growth in 24 hours- Final report to follow
12/26/24 16:49 Blood/Venous Blood Culture - Final
Enterococcus faecalis
12/26/24 16:49 Blood/Venous Gram Stain - Final
12/26/24 16:23 Urine Urine Culture - Final
Sepsis secondary to CAUTI (POA, had SPT on admission):
-h/o neurogenic bladder
-s/p sepsis bolus of 2.5L IVFs on admission
-lactic acidosis and leukocytosis have resolved
-1 of 2 BCxs with Enterococcus, cont Ampicillin
-follow repeat BCxs (NGTD)
-urology following and exchanged suprapubic catheter 12/28 at bedside
-c/s ID for abx recs
Other problems:
Hypokalemia: 40meq K today
Hyponatremia, resolved
Essential Hypertension: cont valsartan
h/o CVA with residual L hemiparesis: cont Plavix/statin
Dementia: cont duloxetine
RN updated
FULL/Lovenox
Anticipated Discharge: Within 24 hours
Subjective/Interval History
-
Date of Service: December 30, 2024
Patient does not offer any new complaints.
Objective Data
-
Labs:
Laboratory Results
12/30/24
07:51
WBC 7.6
Hgb 8.6 L
Hct 27.0 L
Plt Count 229
Sodium 135
Potassium 3.2 L
Chloride 104
Carbon Dioxide 23
BUN 13
Creatinine 0.7
Glucose 118 H
Calcium 8.0 L
Vital Signs:
Vital Signs
Temp Pulse Resp BP Pulse Ox
98.4 F 84 21 191/84 98
12/30/24 07:20 12/30/24 07:20 12/30/24 07:20 12/30/24 07:20 12/30/24 07:20
I&O
12/29/24 12/30/24 12/31/24
06:59 06:59 06:59
Intake Total 240 / 240 1284 / 1284 1430 / 1430
Output Total 600 / 600 2200 / 2200
Balance -360 / -360 -916 / -916 1430 / 1430
[2024-12-30] MEDS: KCL 40 MEQ PO (10:16)
--- NOTE | 2024-12-30 10:46 | W.PN.URO.CBU ---
Today's Communication / Plan
-
per hospitalist
Assessment / Plan
-
sp tube and sepsis will continue uiv abs pos blood cxs . urologically stable
Diagnosis
-
Date of Service: December 30, 2024
-
Patient Diagnosis:
Post Op Day:
Patient Diagnosis:
Post Op Day:
Patient Diagnosis:
Post Op Day:
Patient Diagnosis:
complex uti / sepsis syndrome in pt with asp tube changed 1 week ago
Post Op Day:
Subjective
-
dementia buit states feels well
Objective
-
Vital Signs
Temp Pulse Resp BP Pulse Ox
98.4 F 84 21 191/84 98
12/30/24 07:20 12/30/24 07:20 12/30/24 07:20 12/30/24 07:20 12/30/24 07:20
Intake and Output
12/29/24 12/30/24 12/31/24
06:59 06:59 06:59
Intake Total 240 / 240 1284 / 1284 1538 / 1538
Output Total 600 / 600 2200 / 2200
Balance -360 / -360 -916 / -916 1538 / 1538
Intake:
Oral fluids 240 / 240 960 / 960 480 / 480
IV fluids (Total) 950 / 950
IV piggybacks 324 / 324 108 / 108
Output:
Urine, An 600 / 600 1350 / 1350
Suprapubic output 850 / 850
Laboratory Results
12/30/24 07:51
12/30/24 07:51
Review of Systems
-
: Difficulty Voiding
Physical Exam
-
General - well developed, well nourished, no acute distress
Chest - clear bilaterally
Abdomen - soft, non-tender, positive bowel sounds, no CVAT, no incisional pain or distention
Genitalia - normal
Rectal - normal
Skin - warm & dry with no rash
Neuro - AOx3, no motor deficits
Extremities - no clubbing, no cyanosis, no edema
Incision - clean, dry
Dressing - clean, dry, intact
--- NOTE | 2024-12-30 13:55 | PN.CDI ---
CDI
- -
CDI:
Physician Documentation Request
Admit Date: 12/26/24 18:59
Dear Doctor,
Please review the following and provide your response in the progress notes.
Clinical Indicators:
Pt admitted for sepsis and cauti.
12/26 RN documented in wound panel assessment, stage 1 sacral pressure injury.
Physician documentation of the type and location of wounds is required for compliant documentation. Based on the above clinical findings and your assessment, please provide the following in your progress note:
1. Location of the ulcer/wound, including laterality.
2. Type (etiology) of ulcer/wound:
Sacral Pressure injury POA
Sacral non-pressure injury POA
Other
Use of terms such as suspected, likely, concern for, or probable (associated with a specific diagnosis that is being evaluated, monitored, or treated as if it exists) are acceptable and can be coded in the inpatient setting, when documented at the
time of discharge.
Thank you,
Irma Potter RN, BSN
CDI Specialist
[facility]
Please use your independent medical judgment in providing your response.
*Source: National Pressure Ulcer Advisory Panel (NPUAP)
--- NOTE | 2024-12-30 15:58 | CM ---
Cm following for return to [facility] when medically cleared. Watch for IV abx needs which will need authorization from his insurance.
[2024-12-30 16:05] VITALS: BP 137/58
--- NOTE | 2024-12-30 17:50 | CON.ID ---
Consultation
-
Date/Time Consultation Requested: December 30, 2024 0947
Date/Time Consultation Performed: December 30, 2024 1750
Requesting Provider: Dr. Joseph Craven
Performing Provider: Dr. Caitlin Armenta
Reason for Consultation: CAUTI
Chief Complaint / Past History
Chief Complaint
Fever
History of Present Illness
History obtained from review of medical records since patient has dementia. 84-year-old male from group home facility with history of CVA, left hemiparesis, neurogenic bladder with chronic suprapubic catheter who presented to the ED 12/26 due to
elevated white count and fever. In the ED temperature 102.2, Tmax 103, blood cell count 21.2 , UA 3+ leukocyte esterase, 50-60 white blood cells. Initially he was placed on Zosyn which then changed to IV ampicillin when 1 out of 1 set of blood
culture resulted as Enterococcus faecalis. Urine culture more than 100,000 CFU mixed jeri. Urology changed to suprapubic catheter on Monday, December 28. Today patient reports no complaint. No suprapubic pain. He denies chills.
Past History
Additional Past Medical History:
Dementia
CVA with left hemiparesis
Hypertension
HLD
Depression
Neurogenic bladder with chronic suprapubic catheter
Cholecystectomy
[facility] resident
Allergy History:
No Known Allergies Allergy (Unverified 10/15/24 08:45)
Medications Reviewed: Yes
Current Antibiotics:
Ampicillin 2 g IV every 4 hours day 3
Social History
Tobacco: Non-Smoker
Alcohol: None
Drug: None
Living: [facility]
Family History
Family History: Not Pertinent
Review of Systems
Review of Systems
General: Negative Change in Appetite
HEENT: Negative Sinus Problems or Headache
Respiratory: Negative Dyspnea or Cough
Gasteroenterology: Negative Nausea, Vomiting or Diarrhea
Genital / Urological: Negative Flank Pain
Vital Signs
Temp Pulse Resp BP Pulse Ox
98.6 F 86 20 137/58 96
12/30/24 16:05 12/30/24 16:05 12/30/24 16:05 12/30/24 16:05 12/30/24 16:05
Physical Exam
Physical Exam
Constitutional: No Acute Distress and Chronically Ill
Eyes: No Conjunctival Hemorrhage and Sclera Anicteric
Cardiovascular: Regular Rate and S1/S2
Pulmonary: Clear
Gastrointestinal: Soft, Non Tender, Non Distended and Normal Bowel Sounds
Genito-Urinary: Clear Urine (Suprapubic catheter)
Extremities: Negative Edema
Neurological: Awake and Alert
Lab / Diagnostic Study Results
12/30/24 07:51
12/30/24 07:51
Abs Immat Gran (auto) 0.1 10^3/uL (0-0.05) H 12/30/24 07:51
Absolute Neuts (auto) 5.9 10^3/uL (1.4-6.5) 12/30/24 07:51
Absolute Lymphs (auto) 0.8 10^3/uL (1.2-3.4) L 12/30/24 07:51
Absolute Monos (auto) 0.7 10^3/uL (0.1-0.6) H 12/30/24 07:51
Absolute Basos (auto) 0.0 10^3/uL (0-0.2) 12/30/24 07:51
Immature Gran % 0.7 % (0-0.5) H 12/30/24 07:51
Neutrophils % 77.6 % (42.2-75.2) H 12/30/24 07:51
Lymphocytes % 10.4 % (20.5-51.1) L 12/30/24 07:51
Monocytes % 8.7 % (1.7-9.3) 12/30/24 07:51
Eosinophils % 2.1 % (0-6) 12/30/24 07:51
Basophils % 0.5 % (0-2) 12/30/24 07:51
Lactic Acid 1.7 mmol/L (0.7-2.0) 12/27/24 12:04
Ur Squamous Epith Cells 0-2 /LPF (Few) 12/26/24 16:23
Microbiology Results
Micro:
12/29/24 06:15 Blood Culture - Preliminary
Blood/Venous No Growth in 24 hours- Final report to follow
12/26/24 16:49 Blood Culture - Final
Blood/Venous Enterococcus faecalis
Gram Stain - Final
12/26/24 16:23 Urine Culture - Final
Urine
Assessment / Plan
# Enterococcus faecalis bacteremia, 1 of 1 set of blood culture.
# Suspect CAUTI source of bacteremia
# Fever resolved
# Leukocytosis
# Neurogenic bladder with chronic suprapubic catheter, change December 28.
- Repeat blood cx negative.
-Can continue ampicillin IV for now.
- At time of discharge, transition to amoxicillin 1000 mg p.o. q8 hours through 01/11/25.
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
Dementia
CVA with left hemiparesis
Hypertension
HLD
Depression
Neurogenic bladder with chronic suprapubic catheter
Cholecystectomy
SNF resident
[2024-12-30] MEDS: LOVENOX 40 MG SC (18:33)
[2024-12-30 19:00] VITALS: BP 145/63
[2024-12-30] MEDS: MELATONIN 3 MG PO (21:33)
[2024-12-30] MEDS: LIPITOR 20 MG PO (21:34)
[2024-12-30 23:00] VITALS: BP 176/83
[2024-12-31] VITALS (7 sets, daily range): BP systolic 104–187; BP diastolic 56–89
[2024-12-31] MEDS: AMPICILLIN 108 MG IV ×6 (02:02→21:46)
[2024-12-31] MEDS: MIRALAX PO (07:54)
[2024-12-31] MEDS: SENOKOT PO ×2 (07:54→20:26)
[2024-12-31] MEDS: VISBIOME 1 CAP PO (07:56)
[2024-12-31] MEDS: MAG-TAB SR 84 MG PO (07:56)
[2024-12-31] MEDS: CYMBALTA DELAYED RELEASE 60 MG PO (07:56)
[2024-12-31] MEDS: DIOVAN 80 MG PO (07:56)
[2024-12-31] MEDS: NEURONTIN 100 MG PO ×2 (07:56→20:24)
[2024-12-31] MEDS: PLAVIX 75 MG PO (07:56)
[2024-12-31] MEDS: DICLOFENAC 1% TOPICAL GEL 100 GRAM TOPICAL ×2 (07:57→20:23)
--- NOTE | 2024-12-31 10:34 | W.PN.HOSP.TC ---
Today's Communication/Plan
-
see plan
Assessment / Plan
Assessment / Plan
84 M with a medical history of CVA (left hemiparesis), hypertension, and neurogenic bladder (chronic suprapubic catheter) who presented from his nursing facility with cloudy urine from his SPC and leukocytosis. He was febrile on admission with a
Tmax of 103 �F, lactic acid 2.7, and a leukocytosis of 21,000. He was started on antibiotics with IV cefepime and admitted for further evaluation and management of sepsis secondary to UTI.
Gen: continues to remain NAD, Awake and alert
Eyes: EOMI, PERRLA, no scleral icterus.
Neck: supple.
CV: continues to remain RRR, +S1/S2, no m/r/g.
Resp: remains CTAB anteriorly, no rales, wheezes, or rhonchi.
Abd: +BS, soft, NT, ND
Skin: No rashes.
Neuro: CN 2-12 intact, L-hemiparesis
Psych: Normal mood and affect.
12/29/24 06:15 Blood/Venous Blood Culture - Preliminary
No Growth in 48 hours- Final report to follow
12/26/24 16:49 Blood/Venous Blood Culture - Final
Enterococcus faecalis
12/26/24 16:49 Blood/Venous Gram Stain - Final
12/26/24 16:23 Urine Urine Culture - Final
Sepsis secondary to CAUTI (POA, had SPT on admission):
-h/o neurogenic bladder
-s/p sepsis bolus of 2.5L IVFs on admission
-lactic acidosis and leukocytosis have resolved
-1 of 2 BCxs with Enterococcus, cont Ampicillin while hospitalized, on d/c transition to Amoxcillin 1g PO Q8H though 01/11/25 as per ID
-follow repeat BCxs (NGTD)
-urology following and exchanged suprapubic catheter 12/28 at bedside
Essential Hypertension:
-with hypertensive urgency
-start Procardia XL 30mg daily
-cont valsartan (may need to increase tomorrow)
Other problems:
Hypokalemia: 40meq K today
Hyponatremia, resolved
h/o CVA with residual L hemiparesis: cont Plavix/statin
Dementia: cont duloxetine
RN updated
FULL/Lovenox
Anticipated Discharge: Within 24 hours
Subjective/Interval History
-
Date of Service: December 31, 2024
No new complaints.
Objective Data
-
Labs:
Laboratory Results
12/31/24
10:34
Sodium Pending
Potassium Pending
Chloride Pending
Carbon Dioxide Pending
BUN Pending
Creatinine Pending
Glucose Pending
Calcium Pending
Vital Signs:
Vital Signs
Temp Pulse Resp BP Pulse Ox
98.2 F 84 16 187/88 95
12/31/24 08:14 12/31/24 08:14 12/31/24 08:14 12/31/24 08:14 12/31/24 08:45
I&O
12/30/24 12/31/24 01/01/25
06:59 06:59 06:59
Intake Total 1284 / 1284 2594 / 2594
Output Total 2200 / 2200 2600 / 2600
Balance -916 / -916 -6 / -6
[2024-12-31] MEDS: PROCARDIA XL (EXTENDED RELEASE) 30 MG PO (11:02)
[2024-12-31 11:33] LABS: Blood Urea Nitrogen 10 mg/dl (9-20); Calcium 7.9 mg/dl (8.4-10.2); Carbon Dioxide 26 mmol/L (22-30); Chloride 106 mmol/L (98-107); Estimated Creatinine Clearance 76 ml/min; Glucose 130 mg/dl (70-99); Potassium 3.5 mmol/L (3.5-5.1); Sodium 138 mmol/L (135-145); eGFR > 60.00
[2024-12-31] MEDS: KCL 40 MEQ PO (13:03)
--- NOTE | 2024-12-31 14:15 | W.PN.ID1 ---
Date of Service
Date of Service: December 31, 2024
Today's Communication
At time of discharge, transition to amoxicillin 1000 mg p.o. q8 hours through 01/11/25.
Assessment / Plan
# Enterococcus faecalis bacteremia, 1 of 1 set of blood culture.
# Suspect CAUTI source of bacteremia
# Fever resolved
# Leukocytosis resolved
# Neurogenic bladder with chronic suprapubic catheter, changed December 28.
- Repeat blood cx negative to date.
-Can continue ampicillin IV
- At time of discharge, transition to amoxicillin 1000 mg p.o. q8 hours through 01/11/25.
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
Dementia
CVA with left hemiparesis
Hypertension
HLD
Depression
Neurogenic bladder with chronic suprapubic catheter
Cholecystectomy
SNF resident
Chief Complaint
-: Bacteremia
Subjective / Review of Systems
Feels OK.
Vital Signs / Physical Exam
Vital Signs
Vital Signs
Temp Pulse Resp BP Pulse Ox
98.1 F 92 16 194/99 95
12/31/24 11:02 12/31/24 11:02 12/31/24 11:02 12/31/24 11:02 12/31/24 11:02
Physical Exam
Constitutional: No Acute Distress
Cardiovascular: Regular Rate and S1/S2
Pulmonary: Clear
Gastrointestinal: Soft, Non Tender and Non Distended
Genito-Urinary: Clear Urine (SPC)
Extremities: Negative Edema
Objective Data
Lab Data
Lab Results
12/30/24 07:51
12/31/24 10:56
Estimated Creat Clear 76 ml/min 12/31/24 10:56
Lactic Acid 1.7 mmol/L (0.7-2.0) 12/27/24 12:04
Total Bilirubin 0.6 mg/dl (0.2-1.3) 12/26/24 16:22
AST 29 U/L (17-59) 12/26/24 16:22
ALT 26 U/L (0-50) 12/26/24 16:22
Alkaline Phosphatase 151 U/L (38-126) H 12/26/24 16:22
Most recent labs reviewed.
Micro Results:
12/29/24 06:15 Blood Culture - Preliminary
Blood/Venous No Growth in 48 hours- Final report to follow
12/26/24 16:49 Blood Culture - Final
Blood/Venous Enterococcus faecalis
Gram Stain - Final
12/26/24 16:23 Urine Culture - Final
Urine
[2024-12-31] MEDS: LOVENOX 40 MG SC (17:17)
--- NOTE | 2024-12-31 18:07 | W.PN.URO.CBU ---
Today's Communication / Plan
-
no changes
Assessment / Plan
-
sp tube and sepsis will continue uiv abs pos blood cxs . urologically stable
Diagnosis
-
Date of Service: December 31, 2024
-
Patient Diagnosis:
Post Op Day:
Patient Diagnosis:
Post Op Day:
Patient Diagnosis:
Post Op Day:
Patient Diagnosis:
Post Op Day:
Patient Diagnosis:
complex uti / sepsis syndrome in pt with asp tube changed 1 week ago
Post Op Day:
Subjective
-
stable according rns
Objective
-
Vital Signs
Temp Pulse Resp BP Pulse Ox
97.8 F 88 16 104/56 95
12/31/24 15:24 12/31/24 15:24 12/31/24 15:24 12/31/24 15:24 12/31/24 15:24
Intake and Output
12/30/24 12/31/24 01/01/25
06:59 06:59 06:59
Intake Total 1284 / 1284 2594 / 2594
Output Total 2200 / 2200 2600 / 2600 1900 / 1900
Balance -916 / -916 -6 / -6 -190 / -1900
Intake:
Oral fluids 960 / 960 1320 / 1320
IV fluids (Total) 950 / 950
IV piggybacks 324 / 324 324 / 324
Output:
Urine, An 1350 / 1350 1999 / 1999
Urine, Voided 300 / 300
Suprapubic output 850 / 850 300 / 300 1900 / 1900
Other:
Number of unmeasured liquid
stools
Rectum 1
Laboratory Results
12/30/24 07:51
12/31/24 10:56
Review of Systems
-
: Difficulty Voiding
Physical Exam
-
General - well developed, well nourished, no acute distress
Chest - clear bilaterally
Abdomen - soft, non-tender, positive bowel sounds, no CVAT, no incisional pain or distention
Genitalia - normal
Rectal - normal
Skin - warm & dry with no rash
Neuro - AOx3, no motor deficits
Extremities - no clubbing, no cyanosis, no edema
Incision - clean, dry
Dressing - clean, dry, intact
Counseling
-
urine clearno gu changes
Care Review
Data Reviewed
Discussed with: Nursing
[2024-12-31] MEDS: LIPITOR 20 MG PO (21:46)
[2024-12-31] MEDS: MELATONIN 3 MG PO (21:46)
[2025-01-01] MEDS: AMPICILLIN 108 MG IV ×6 (02:00→22:07)
[2025-01-01 03:16] VITALS: BP 129/70
[2025-01-01 07:29] VITALS: BP 129/62
--- NOTE | 2025-01-01 08:05 | W.PN.HOSP.TC ---
Today's Communication/Plan
-
see plan
Assessment / Plan
Assessment / Plan
84 M with a medical history of CVA (left hemiparesis), hypertension, and neurogenic bladder (chronic suprapubic catheter) who presented from his nursing facility with cloudy urine from his SPC and leukocytosis. He was febrile on admission with a
Tmax of 103 �F, lactic acid 2.7, and a leukocytosis of 21,000. He was started on antibiotics with IV cefepime and admitted for further evaluation and management of sepsis secondary to UTI.
Gen: NAD, Awake and alert
Eyes: EOMI, PERRLA, no scleral icterus.
Neck: supple.
CV: RRR, +S1/S2, no m/r/g.
Resp: continues to remain CTAB anteriorly, no rales, wheezes, or rhonchi.
Abd: +BS, soft, NT, ND
Skin: No rashes.
Neuro: CN 2-12 intact, L-hemiparesis
Psych: Normal mood and affect.
12/29/24 06:15 Blood/Venous Blood Culture - Preliminary
Positive culture in progress
12/29/24 06:15 Blood/Venous Gram Stain - Preliminary
12/26/24 16:49 Blood/Venous Blood Culture - Final
Enterococcus faecalis
12/26/24 16:49 Blood/Venous Gram Stain - Final
12/26/24 16:23 Urine Urine Culture - Final
Sepsis secondary to CAUTI (POA, had SPT on admission):
-h/o neurogenic bladder
-s/p sepsis bolus of 2.5L IVFs on admission
-lactic acidosis and leukocytosis have resolved
-urology following and exchanged suprapubic catheter 12/28 at bedside
-1 of 2 BCxs on admission with Enterococcus, cont Ampicillin
-repeat BCxs 12/29/24 1 of 2 with GPC, follow speciation and sensitivities (called micro and 12/29/24 BCx is enterococcus), follow 01/01/25 BCx
-check TTE
-ID following, discussed with ID
Essential Hypertension:
-with hypertensive urgency
-has had labile BPs
-cont Procardia XL/valsartan at current dosing
Other problems:
Hypokalemia, resolved
Hyponatremia, resolved
h/o CVA with residual L hemiparesis: cont Plavix/statin
Dementia: cont duloxetine
RN updated
FULL/Lovenox
Anticipated Discharge: 24 - 48 hours
Subjective/Interval History
-
Date of Service: January 01, 2025
No new complaints.
Objective Data
-
Labs:
Laboratory Results
01/01/25
07:00
Sodium Pending
Potassium Pending
Chloride Pending
Carbon Dioxide Pending
BUN Pending
Creatinine Pending
Glucose Pending
Calcium Pending
Vital Signs:
Vital Signs
Temp Pulse Resp BP Pulse Ox
97.9 F 81 18 129/62 95
01/01/25 07:29 01/01/25 07:29 01/01/25 07:29 01/01/25 07:29 01/01/25 07:29
I&O
12/31/24 01/01/25 01/02/25
06:59 06:59 06:59
Intake Total 2594 / 2594 120 / 120
Output Total 2600 / 2600 2625 / 2625
Balance -6 / -6 -2505 / -2505
[2025-01-01] MEDS: PLAVIX 75 MG PO (08:10)
[2025-01-01] MEDS: NEURONTIN 100 MG PO ×2 (08:10→19:43)
[2025-01-01] MEDS: MAG-TAB SR 84 MG PO (08:10)
[2025-01-01] MEDS: PROCARDIA XL (EXTENDED RELEASE) 30 MG PO (08:11)
[2025-01-01] MEDS: DIOVAN 80 MG PO (08:12)
[2025-01-01] MEDS: CYMBALTA DELAYED RELEASE 60 MG PO (08:12)
[2025-01-01] MEDS: VISBIOME 1 CAP PO (08:13)
[2025-01-01] MEDS: SENOKOT 17.2 MG PO (08:13)
[2025-01-01] MEDS: MIRALAX 17 GRAMS PO (08:14)
[2025-01-01 08:15] LABS: Blood Urea Nitrogen 11 mg/dl (9-20); Calcium 8.0 mg/dl (8.4-10.2); Carbon Dioxide 25 mmol/L (22-30); Chloride 106 mmol/L (98-107); Estimated Creatinine Clearance 76 ml/min; Glucose 124 mg/dl (70-99); Potassium 3.7 mmol/L (3.5-5.1); Sodium 134 mmol/L (135-145); eGFR > 60.00
[2025-01-01] MEDS: DICLOFENAC 1% TOPICAL GEL 100 GRAM TOPICAL ×2 (09:30→19:43)
[2025-01-01 11:11] VITALS: BP 140/56
--- NOTE | 2025-01-01 12:57 | W.PN.URO.CBU ---
Today's Communication / Plan
-
per hospitalist
Assessment / Plan
-
sp tube and sepsis will continue uiv abs pos blood cxs . urologically stable
Diagnosis
-
Date of Service: January 01, 2025
-
Patient Diagnosis:
Post Op Day:
Patient Diagnosis:
Post Op Day:
Patient Diagnosis:
Post Op Day:
Patient Diagnosis:
Post Op Day:
Patient Diagnosis:
Post Op Day:
Patient Diagnosis:
complex uti / sepsis syndrome in pt with asp tube changed 1 week ago
Post Op Day:
Subjective
-
no complaints
Objective
-
Vital Signs
Temp Pulse Resp BP Pulse Ox
97 F 80 18 140/56 94
01/01/25 11:11 01/01/25 11:11 01/01/25 11:11 01/01/25 11:11 01/01/25 11:11
Intake and Output
12/31/24 01/01/25 01/02/25
06:59 06:59 06:59
Intake Total 2594 / 2594 120 / 120
Output Total 2600 / 2600 2625 / 2625
Balance -6 / -6 -2505 / -2505
Intake:
Oral fluids 1320 / 1320 120 / 120
IV fluids (Total) 950 / 950
IV piggybacks 324 / 324
Output:
Urine, An 1999 / 1999
Urine, Voided 300 / 300 725 / 725
Suprapubic output 300 / 300 1900 / 1900
Other:
Number of unmeasured liquid
stools
Rectum 1
Laboratory Results
12/30/24 07:51
01/01/25 07:00
Review of Systems
-
: Difficulty Voiding
Physical Exam
-
General - well developed, well nourished, no acute distress
Chest - clear bilaterally
Abdomen - soft, non-tender, positive bowel sounds, no CVAT, no incisional pain or distention
Genitalia - normal
Rectal - normal
Skin - warm & dry with no rash
Neuro - AOx3, no motor deficits
Extremities - no clubbing, no cyanosis, no edema
Incision - clean, dry
Dressing - clean, dry, intact
--- NOTE | 2025-01-01 13:12 | W.PN.ID1 ---
Date of Service
Date of Service: January 01, 2025
Today's Communication
TTE
add ceftriaxone to IV ampicillin
Assessment / Plan
# Persistent Enterococcus faecalis bacteremia (2 sets)
# Suspect CAUTI source of bacteremia
# Fever resolved
# Leukocytosis resolved
# Neurogenic bladder with chronic suprapubic catheter, changed December 28.
- Repeat blood cx 06/26 set + Enterococcus faecalis
- Repeat bcx's x 2 today
- For TTE
-Continue ampicillin IV 2gq4h.
Add ceftriaxone 2g q12
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
Dementia
CVA with left hemiparesis
Hypertension
HLD
Depression
Neurogenic bladder with chronic suprapubic catheter
Cholecystectomy
SNF resident
Chief Complaint
-: Bacteremia
Subjective / Review of Systems
Feels OK
Vital Signs / Physical Exam
Vital Signs
Vital Signs
Temp Pulse Resp BP Pulse Ox
97 F 80 18 140/56 94
01/01/25 11:11 01/01/25 11:11 01/01/25 11:11 01/01/25 11:11 01/01/25 11:11
Physical Exam
Constitutional: No Acute Distress
Cardiovascular: Regular Rate and S1/S2
Pulmonary: Clear
Gastrointestinal: Soft, Non Tender and Non Distended
Genito-Urinary: Clear Urine (urolstomy)
Extremities: Negative Edema
Neurological: Awake
Objective Data
Lab Data
Lab Results
12/30/24 07:51
01/01/25 07:00
Estimated Creat Clear 76 ml/min 01/01/25 07:00
Lactic Acid 1.7 mmol/L (0.7-2.0) 12/27/24 12:04
Total Bilirubin 0.6 mg/dl (0.2-1.3) 12/26/24 16:22
AST 29 U/L (17-59) 12/26/24 16:22
ALT 26 U/L (0-50) 12/26/24 16:22
Alkaline Phosphatase 151 U/L (38-126) H 12/26/24 16:22
Most recent labs reviewed.
Micro Results:
12/29/24 06:15 Blood Culture - Preliminary
Blood/Venous Enterococcus faecalis
Gram Stain - Preliminary
01/01/25 09:04 Blood Culture - Pending
Blood/Venous
01/01/25 07:00 Blood Culture - Pending
Blood/Venous
12/26/24 16:49 Blood Culture - Final
Blood/Venous Enterococcus faecalis
Gram Stain - Final
12/26/24 16:23 Urine Culture - Final
Urine
Care Review
Plan reviewed with: Physician (Dr. Craven)
[2025-01-01] MEDS: ROCEPHIN 2000 MG IV (15:09)
[2025-01-01 15:23] VITALS: BP 127/60
[2025-01-01] MEDS: STERILE WATER FOR INJECTION 20 ML IV (15:27)
[2025-01-01] MEDS: LOVENOX 40 MG SC (17:47)
[2025-01-01 19:42] VITALS: BP 119/51
[2025-01-01] MEDS: SENOKOT PO (19:43)
[2025-01-01] MEDS: LIPITOR 20 MG PO (22:07)
[2025-01-01] MEDS: MELATONIN 3 MG PO (22:07)
[2025-01-01 23:43] VITALS: BP 127/58
[2025-01-02] MEDS: AMPICILLIN 108 MG IV ×6 (02:05→22:03)
[2025-01-02] MEDS: STERILE WATER FOR INJECTION 20 ML IV ×2 (02:05→13:10)
[2025-01-02] MEDS: ROCEPHIN 2000 MG IV ×2 (02:05→13:10)
[2025-01-02 03:27] VITALS: BP 133/63
[2025-01-02 07:32] LABS: Blood Urea Nitrogen 15 mg/dl (9-20); Calcium 7.9 mg/dl (8.4-10.2); Carbon Dioxide 25 mmol/L (22-30); Chloride 104 mmol/L (98-107); Estimated Creatinine Clearance 67 ml/min; Glucose 125 mg/dl (70-99); Potassium 3.3 mmol/L (3.5-5.1); Sodium 135 mmol/L (135-145); eGFR > 60.00
[2025-01-02 07:35] VITALS: BP 145/67
--- NOTE | 2025-01-02 08:00 | W.PN.HOSP.TC ---
Today's Communication/Plan
-
see plan
Assessment / Plan
Assessment / Plan
84 M with a medical history of CVA (left hemiparesis), hypertension, and neurogenic bladder (chronic suprapubic catheter) who presented from his nursing facility with cloudy urine from his SPC and leukocytosis. He was febrile on admission with a
Tmax of 103 �F, lactic acid 2.7, and a leukocytosis of 21,000. He was started on antibiotics with IV cefepime and admitted for further evaluation and management of sepsis secondary to UTI.
Gen: remains NAD, Awake and alert
Eyes: EOMI, PERRLA, no scleral icterus.
Neck: supple.
CV: remains RRR, +S1/S2, no m/r/g.
Resp: CTAB anteriorly, no rales, wheezes, or rhonchi.
Abd: remains +BS, soft, NT, ND
Skin: No rashes.
Neuro: CN 2-12 intact, L-hemiparesis
Psych: Normal mood and affect.
01/01/25 07:00 Blood/Venous Blood Culture - Preliminary
No Growth in 24 hours- Final report to follow
12/29/24 06:15 Blood/Venous Blood Culture - Preliminary
Enterococcus faecalis
12/29/24 06:15 Blood/Venous Gram Stain - Preliminary
12/26/24 16:49 Blood/Venous Blood Culture - Final
Enterococcus faecalis
12/26/24 16:49 Blood/Venous Gram Stain - Final
12/26/24 16:23 Urine Urine Culture - Final
TTE: Left ventricle is small in size. Moderate concentric left ventricular
hypertrophy. Normal left ventricular systolic function. Left ventricular
ejection fraction is 60-65% by Carballo's method of discs. Normal regional wall
motion. Normal diastolic function.
Thickened mitral valve leaflets. Severe mitral annular calcification, seen
predominately on posterior mitral valve leaflet. Trace mitral regurgitation.
Indexed LA volume is within normal range (15-34 mL/m2).
There is no evidence of vegetation seen. However if clinical suspicion is high
would suggest LISA.
Sepsis secondary to CAUTI (POA, had SPT on admission):
-h/o neurogenic bladder
-s/p sepsis bolus of 2.5L IVFs on admission
-lactic acidosis and leukocytosis have resolved
-urology following and exchanged suprapubic catheter 12/28 at bedside
-1 of 2 BCxs on admission with Enterococcus, cont Ampicillin/Rocephin
-repeat BCx 12/29/24 with enterococcus), follow 01/01/25 BCx
-TTE without veg
-ID following, discussed with ID
-check LISA and CT A/P
Essential Hypertension:
-with hypertensive urgency
-has had labile BPs
-cont Procardia XL/valsartan at current dosing
Other problems:
Hypokalemia, resolved
Hyponatremia, resolved
h/o CVA with residual L hemiparesis: cont Plavix/statin
Dementia: cont duloxetine
RN updated
FULL/Lovenox
Anticipated Discharge: 24 - 48 hours
Subjective/Interval History
-
Date of Service: January 02, 2025
No new complaints.
Objective Data
-
Labs:
Laboratory Results
01/02/25
06:21
Sodium 135
Potassium 3.3 L
Chloride 104
Carbon Dioxide 25
BUN 15
Creatinine 0.8
Glucose 125 H
Calcium 7.9 L
Vital Signs:
Vital Signs
Temp Pulse Resp BP Pulse Ox
97.7 F 78 16 133/63 95
01/02/25 03:27 01/02/25 03:27 01/02/25 03:27 01/02/25 03:27 01/02/25 03:27
I&O
01/01/25 01/02/25 01/03/25
06:59 06:59 06:59
Intake Total 120 / 120 210 / 210
Output Total 2625 / 2625 500 / 500
Balance -2505 / -2505 -290 / -290
[2025-01-02] MEDS: VISBIOME 1 CAP PO (08:55)
[2025-01-02] MEDS: NEURONTIN 100 MG PO ×2 (08:55→20:18)
[2025-01-02] MEDS: DIOVAN 80 MG PO (09:00)
[2025-01-02] MEDS: KCL 40 MEQ PO (09:00)
[2025-01-02] MEDS: PLAVIX 75 MG PO (09:00)
[2025-01-02] MEDS: MIRALAX PO (09:01)
[2025-01-02] MEDS: CYMBALTA DELAYED RELEASE 60 MG PO (09:01)
[2025-01-02] MEDS: PROCARDIA XL (EXTENDED RELEASE) 30 MG PO (09:01)
[2025-01-02] MEDS: SENOKOT PO (09:01)
[2025-01-02] MEDS: DICLOFENAC 1% TOPICAL GEL 1 GRAM TOPICAL (09:02)
[2025-01-02] MEDS: MAG-TAB SR 84 MG PO (09:02)
--- NOTE | 2025-01-02 09:39 | CON.CAR ---
Addendum entered and electronically signed by Maninder Messer MD 01/02/25 18:27:
84-year-old man who resides at [facility], history of neurogenic bladder and suprapubic tube, admitted with hospital associated UTI and enterococcal bacteremia,
PMH/PSH: Prior stroke, residual left hemiparesis, hypertension, hyperlipidemia, neurogenic bladder with suprapubic tube, dementia
Current medications: Atorvastatin 20 mg a day, clopidogrel 75 mg a day Cymbalta, gabapentin, magnesium, melatonin, MiraLAX, enoxaparin, valsartan 80 mg a day, ampicillin, nifedipine ER 30 mg a day, ceftriaxone
121/52, pulse 84, respiratory 17, temp is 36.5, denies complaints, is aware that he is at [facility] and currently lives in [facility], unclear that he knows this is likely a permanent arrangement, left hemiparesis, lungs relatively
clear, regular rate and rhythm no obvious murmurs JVD okay, extremities relatively cool with diminished pulses but not acutely ischemic, neuro with left hemiparesis, abdomen with suprapubic tube
Hemoglobin 9.3, potassium 3.3, BUN/creatinine 15 and 0.8, proBNP was 1060 in September [address]
CT of abdomen and pelvis: Pleural effusions
Echo 01/01/2025: EF 60-65%, thickened mitral leaflets, severe MAC, trace MR, aortic sclerosis without vegetation or insufficiency, mild TR, pulmonary artery pressure 16
ECG sinus tachycardia, PVCs, right bundle branch block, nonspecific ST changes
Impression:
Enterococcus bacteremia
CAUTI
Hypokalemia, mild
Anemia, chronic
CVA with residual left hemiparesis, on chronic Plavix
Hypertension
Hyperlipidemia
Neurogenic bladder with chronic suprapubic catheter
Dementia
Plan:
As below per Greer Dejesus. Reviewed in detail and agree, unless otherwise specified.
He presents with enterococcal bacteremia. A transthoracic echo did not show evidence of vegetation. Furthermore, there was no significant aortic or mitral regurgitation which is commonly seen in the setting of endocarditis.
He is very debilitated and is a suboptimal candidate for transesophageal echo. Risk of procedure is not prohibitive. However, risk is elevated, and given his underlying comorbidities would be desirable to avoid if possible. He would not be a
surgical candidate if endocarditis was discovered, so the major utility of LISA would be for duration of antibiotic therapy.
Will discuss further with infectious diseases as to whether LISA is mandatory.
CT scan of the abdomen showed pleural effusions. He could have an element of HFpEF further complicating transesophageal echocardiography. Will check proBNP.
Will reassess in a.m.
Original Note:
Consultation
Consultation Request
Date/Time Consultation Performed: 01/02/25
Requesting Provider: Dr. rCaven
Performing Provider: Greer Dejesus PA-C for Dr. KATRIN Messer
Reason for Consultation: eval for LISA
Medical History
-
Chief Complaint: urinary issues
History of Present Illness:
Patient is an 84-year-old male resident of [facility], with past medical history of CVA with residual left hemiparesis, hypertension, hyperlipidemia, neurogenic bladder with chronic suprapubic catheter who presented to [facility] ER due to staff
noting cloudy urine. He was febrile on admission, and being treated for sepsis/CAUTI with antibiotics. His blood cultures initially grew out Enterococcus, however by most recent blood cultures thus far have cleared. Cardiology is consulted for
evaluation for LISA. Patient denies chest pain, shortness of breath, palpitations. He denies history of cardiac issues to his knowledge.
PMH:
CVA with residual left hemiparesis, on chronic Plavix
Hypertension
Hyperlipidemia
Neurogenic bladder with chronic suprapubic catheter
Dementia
Past Medical History
Past Medical History: Other (in HPI)
Social History
Personal:
Employment: Retired
Family History
Family History: Unable to Obtain
Allergies / Home Medications
Allergy/AdvReac Type Severity Reaction Status Date / Time
No Known Allergies Allergy Unverified 10/15/24 08:45
�Medication �Instructions �Recorded �Confirmed �Type
acetaminophen 325 mg tablet 650 mg PO Q4HPRN PRN general 10/15/24 12/26/24 History
(Tylenol) discomfort
atorvastatin 20 mg tablet (Lipitor) 20 mg PO HS High Cholesterol 10/15/24 12/26/24 History
bisacodyl 10 mg rectal suppository 10 mg NC [id number] PRN IF NO BM BY 10/15/24 12/26/24 History
(Dulcolax (bisacodyl)) 12 SHIFTS
clopidogrel 75 mg tablet (Plavix) 75 mg PO DAILY Blood Clot 10/15/24 12/26/24 History
Prevention/Tx
diclofenac sodium 1 % topical gel 0 g topical BID left lower back 10/15/24 12/26/24 History
and hip
ergocalciferol (vitamin D2) 1,250 1,250 mcg PO QMONTH Supplement 10/15/24 12/26/24 History
mcg (50,000 unit) capsule
gabapentin 100 mg capsule 100 mg PO BID Pain 10/15/24 12/26/24 History
magnesium hydroxide 400 mg/5 mL 2,400 mg PO [id number] PRN if no BM 10/15/24 12/26/24 History
oral suspension (Milk of Magnesia) after 9 shifts
melatonin 3 mg tablet 3 mg PO HS Sleep 10/15/24 12/26/24 History
sennosides 8.6 mg tablet (senna) 17.2 mg PO BID Constipation 10/15/24 12/26/24 History
sodium phosphates 19 gram-7 118 ml NC [id number] PRN if no Bm on 10/15/24 12/26/24 History
gram/118 mL enema (Fleet Enema) 4th day
valsartan 80 mg tablet 80 mg PO DAILY Blood Pressure 10/15/24 12/26/24 History
Lactobacil rhamnosus GG 10 billion 1 cap PO DAILY Supplement 12/26/24 12/26/24 History
cell-inulin 200 mg sprinkle
capsule ([facility])
duloxetine 60 mg capsule,delayed 60 mg PO DAILY Mental 12/26/24 12/26/24 History
release Health/Anxiety
magnesium oxide 400 mg PO DAILY Supplement 12/26/24 12/26/24 History
polyethylene glycol 3350 17 gram 17 g PO DAILY Constipation 12/26/24 12/26/24 History
oral powder packet
zinc oxide 12 % topical cream 1 applic topical TID buttocks/nevaeh 12/26/24 12/26/24 History
(Duane Protect (zinc oxide)) area
zinc oxide 20 % topical ointment 1 applic topical TID apply to R 12/26/24 12/26/24 History
ischium/glute
Review of Systems
-
History Source: Patient
All other systems: Negative unless noted
Physical Exam
Vital Signs
Temp Pulse Resp BP Pulse Ox
97.6 F 88 16 145/67 96
01/02/25 07:35 01/02/25 07:35 01/02/25 07:35 01/02/25 07:35 01/02/25 07:35
Lab Results
12/30/24 07:51
01/02/25 06:21
Physical Exam
General: No Apparent Distress, Comfortable and Other (pale)
HEENT: Normocephalic, Anicteric and Moist Mucous Membranes
Respiratory: Clear and Non Labored Respirations
Cardiac: S1/S2 and Regular Rhythm
GI: Soft, Non Tender, Non Distended and Normal Bowel Sounds
Musculoskeletal: No Clubbing, No Cyanosis and No Edema
Skin: Warm and Dry
Neuro: Awake, Alert and Oriented (to self)
Impression / Plan
-
Primary Manager Copy: none
Assessment:
Presentation with cloudy urine, fever
Sepsis
Enterococcus bacteremia
CAUTI
Hypokalemia, mild
Anemia, chronic
CVA with residual left hemiparesis, on chronic Plavix
Hypertension
Hyperlipidemia
Neurogenic bladder with chronic suprapubic catheter
Dementia
Echo 01/01/2025: EF 60 to 65%, moderate concentric LVH, severe MAC predominantly on posterior mitral valve leaflet, trace MR, no evidence of vegetation
Plan:
- Patient presented with cloudy urine and fever and found to be septic with Enterococcus bacteremia from CAUTI. continue treatment with abx per ID
- Most recent blood cultures without growth at 24 hours
- Has been afebrile
- Echocardiogram with results as above
- Cardiology consulted for evaluation for LIAS. Procedure explained to patient 01/02.
- He does not appear to be ideal candidate for LISA given dementia, history of large CVA with residual left hemiparesis, and acute on chronic anemia with hemoglobin of 8.6 this morning. Patient is also hesitant to proceed with procedure, stating 'I
am sick of all these tests'. He states if it is felt to be necessary, he would consider. He would not be a candidate for surgical intervention if was found to have endocarditis
- Will discuss further with infectious disease
- He is in sinus rhythm on telemetry with 2 brief runs of possible A. tach. Will follow
- Discussed with nursing
Data Reviewed
-
EKG: Tracing Personally Visualized and interpreted
Medical Tests (Nuc Med, Echo etc): Report Reviewed by me
Labs: Labs Reviewed by me
Old Records: Reviewed
[2025-01-02 10:00] LABS: Hematocrit 29.3 % (39.0-52.0); Hemoglobin 9.3 g/dL (13.0-18.0); Mean Corp Hgb Conc. 31.7 g/dL (33.0-37.0); Mean Corpuscular Volume 81.8 fL (80.0-94.0); Platelet Count 335 10^3/uL (130-400); Red Cell Dist. Width 14.6 % (11.5-14.5)
[2025-01-02] MEDS: OMNIPAQUE 50 ML PO (10:11)
--- NOTE | 2025-01-02 10:42 | W.PN.ID1 ---
Date of Service
Date of Service: January 02, 2025
Today's Communication
LISA.
CT a/p
Assessment / Plan
# Persistent Enterococcus faecalis bacteremia (2 sets)
# Suspect CAUTI source of bacteremia
# Fever resolved
# Leukocytosis resolved
# Neurogenic bladder with chronic suprapubic catheter, changed December 28.
- Repeat blood cx 06/26 set + Enterococcus faecalis
- Repeat bcx's x 2 pending
- TTE; no gross vege
- Rec LISA
- Rec CT a/p to look for intra-abd source
-Continue ampicillin IV 2g q4h and ceftriaxone 2g q12.
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
Dementia
CVA with left hemiparesis
Hypertension
HLD
Depression
Neurogenic bladder with chronic suprapubic catheter
Cholecystectomy
SNF resident
Chief Complaint
-: Bacteremia
Subjective / Review of Systems
Feels same.
Vital Signs / Physical Exam
Vital Signs
Vital Signs
Temp Pulse Resp BP Pulse Ox
97.6 F 88 16 145/67 96
01/02/25 07:35 01/02/25 07:35 01/02/25 07:35 01/02/25 07:35 01/02/25 07:35
Physical Exam
Constitutional: No Acute Distress and Comfortable
Eyes: No Conjunctival Hemorrhage and Sclera Anicteric
Cardiovascular: Regular Rate and S1/S2
Pulmonary: Clear
Gastrointestinal: Soft, Non Tender and Non Distended
Genito-Urinary: Clear Urine
Extremities: Negative Edema
Neurological: Awake and Alert
Objective Data
Lab Data
Lab Results
01/02/25 06:20
01/02/25 06:21
Estimated Creat Clear 67 ml/min 01/02/25 06:21
Lactic Acid 1.7 mmol/L (0.7-2.0) 12/27/24 12:04
Total Bilirubin 0.6 mg/dl (0.2-1.3) 12/26/24 16:22
AST 29 U/L (17-59) 12/26/24 16:22
ALT 26 U/L (0-50) 12/26/24 16:22
Alkaline Phosphatase 151 U/L (38-126) H 12/26/24 16:22
Most recent labs reviewed.
Micro Results:
01/01/25 09:04 Blood Culture - Preliminary
Blood/Venous No Growth in 24 hours- Final report to follow
12/29/24 06:15 Blood Culture - Preliminary
Blood/Venous Enterococcus faecalis
Gram Stain - Preliminary
01/01/25 07:00 Blood Culture - Preliminary
Blood/Venous No Growth in 24 hours- Final report to follow
12/26/24 16:49 Blood Culture - Final
Blood/Venous Enterococcus faecalis
Gram Stain - Final
12/26/24 16:23 Urine Culture - Final
Urine
Care Review
Plan reviewed with: Physician (Dr. Craven)
[2025-01-02 11:00] VITALS: BP 121/52
[2025-01-02 15:03] VITALS: BP 139/60
[2025-01-02] MEDS: LOVENOX 40 MG SC (17:32)
[2025-01-02 19:34] VITALS: BP 121/57
[2025-01-02] MEDS: SENOKOT 17.2 MG PO (20:19)
[2025-01-02] MEDS: DICLOFENAC 1% TOPICAL GEL 100 GRAM TOPICAL (20:19)
[2025-01-02] MEDS: LIPITOR 20 MG PO (22:03)
[2025-01-02] MEDS: MELATONIN 3 MG PO (22:03)
[2025-01-02 23:41] VITALS: BP 115/50
[2025-01-03] MEDS: ROCEPHIN 2000 MG IV ×2 (02:11→14:23)
[2025-01-03] MEDS: AMPICILLIN 108 MG IV ×6 (02:11→21:13)
[2025-01-03] MEDS: STERILE WATER FOR INJECTION 20 ML IV ×2 (02:11→14:23)
[2025-01-03 03:20] VITALS: BP 139/59
[2025-01-03 06:04] LABS: Blood Urea Nitrogen 16 mg/dl (9-20); Calcium 7.6 mg/dl (8.4-10.2); Carbon Dioxide 24 mmol/L (22-30); Chloride 107 mmol/L (98-107); Estimated Creatinine Clearance 59 ml/min; Glucose 112 mg/dl (70-99); Potassium 3.4 mmol/L (3.5-5.1); Sodium 135 mmol/L (135-145); eGFR > 60.00
[2025-01-03 07:50] VITALS: BP 147/63
[2025-01-03] MEDS: DIOVAN 80 MG PO (09:21)
[2025-01-03] MEDS: PROCARDIA XL (EXTENDED RELEASE) 30 MG PO (09:22)
[2025-01-03] MEDS: MAG-TAB SR 84 MG PO (09:22)
[2025-01-03] MEDS: CYMBALTA DELAYED RELEASE 60 MG PO (09:22)
[2025-01-03] MEDS: VISBIOME 1 CAP PO (09:22)
[2025-01-03] MEDS: NEURONTIN 100 MG PO ×2 (09:22→20:42)
[2025-01-03] MEDS: PLAVIX 75 MG PO (09:22)
[2025-01-03] MEDS: MIRALAX PO (09:23)
[2025-01-03] MEDS: SENOKOT PO ×2 (09:23→20:42)
[2025-01-03] MEDS: DICLOFENAC 1% TOPICAL GEL 100 GRAM TOPICAL ×2 (09:23→20:42)
--- NOTE | 2025-01-03 10:16 | W.PN.HOSP.TC ---
Today's Communication/Plan
-
see plan
Assessment / Plan
Assessment / Plan
84 M with a medical history of CVA (left hemiparesis), hypertension, and neurogenic bladder (chronic suprapubic catheter) who presented from his nursing facility with cloudy urine from his SPC and leukocytosis. He was febrile on admission with a
Tmax of 103 �F, lactic acid 2.7, and a leukocytosis of 21,000. He was started on antibiotics with IV cefepime and admitted for further evaluation and management of sepsis secondary to UTI.
Gen: remains NAD, Awake and alert
Eyes: EOMI, PERRLA, no scleral icterus.
Neck: supple.
CV: continues to remain RRR, +S1/S2, no m/r/g.
Resp: remains CTAB anteriorly, no rales, wheezes, or rhonchi.
Abd: continues to remain +BS, soft, NT, ND
Skin: No rashes.
Neuro: CN 2-12 intact, L-hemiparesis
Psych: Normal mood and affect.
01/01/25 09:04 Blood/Venous Blood Culture - Preliminary
No Growth in 48 hours- Final report to follow
01/01/25 07:00 Blood/Venous Blood Culture - Preliminary
No Growth in 48 hours- Final report to follow
12/29/24 06:15 Blood/Venous Blood Culture - Preliminary
Enterococcus faecalis
12/29/24 06:15 Blood/Venous Gram Stain - Preliminary
12/26/24 16:49 Blood/Venous Blood Culture - Final
Enterococcus faecalis
12/26/24 16:49 Blood/Venous Gram Stain - Final
12/26/24 16:23 Urine Urine Culture - Final
TTE: Left ventricle is small in size. Moderate concentric left ventricular
hypertrophy. Normal left ventricular systolic function. Left ventricular
ejection fraction is 60-65% by Carballo's method of discs. Normal regional wall
motion. Normal diastolic function.
Thickened mitral valve leaflets. Severe mitral annular calcification, seen
predominately on posterior mitral valve leaflet. Trace mitral regurgitation.
Indexed LA volume is within normal range (15-34 mL/m2).
There is no evidence of vegetation seen. However if clinical suspicion is high
would suggest LISA.
CT A/P: New small bilateral pleural effusions and bilateral lower lobe opacification, right slightly greater than left. Opacification most likely representing subsegmental atelectasis. Pneumonia, particularly in the right lower lobe cannot be
excluded. Small volume free fluid, particularly perihepatic. No free air or gross abnormal focal fluid collection. No intestinal obstruction. Fluid density filling and mildly distending the rectum with some mild wall thickening, nonspecific, cannot
exclude proctitis. Suprapubic urinary bladder catheter, urinary bladder proper essentially empty with at least relative diffuse wall thickening due to underdistention. Other etiology such as cystitis cannot be excluded. Prior cholecystectomy.
Sepsis secondary to CAUTI (POA, had SPT on admission):
-h/o neurogenic bladder
-s/p sepsis bolus of 2.5L IVFs on admission
-lactic acidosis and leukocytosis have resolved
-urology following and exchanged suprapubic catheter 12/28 at bedside
-1 of 2 BCxs on admission with Enterococcus, cont Ampicillin/Rocephin
-repeat BCx 12/29/24 with enterococcus, 01/01/25 BCx NGTD
-TTE without veg
-CT A/P without source of infection
-ID following
-check LISA
Essential Hypertension:
-with hypertensive urgency
-has had labile BPs
-cont Procardia XL/valsartan at current dosing
Other problems:
Hypokalemia, PO K
Hyponatremia, resolved
h/o CVA with residual L hemiparesis: cont Plavix/statin
Dementia: cont duloxetine
RN updated
FULL/Lovenox
Anticipated Discharge: 24 - 48 hours
Subjective/Interval History
-
Date of Service: January 03, 2025
No new complaints.
Objective Data
-
Labs:
Laboratory Results
01/03/25
05:25
Sodium 135
Potassium 3.4 L
Chloride 107
Carbon Dioxide 24
BUN 16
Creatinine 0.9
Glucose 112 H
Calcium 7.6 L
Vital Signs:
Vital Signs
Temp Pulse Resp BP Pulse Ox
98 F 85 14 147/63 96
01/03/25 07:50 01/03/25 09:21 01/03/25 07:50 01/03/25 09:21 01/03/25 07:50
I&O
01/02/25 01/03/25 01/04/25
06:59 06:59 06:59
Intake Total 210 / 210 480 / 480
Output Total 500 / 500 1600 / 1600
Balance -290 / -290 -1120 / -1120
--- NOTE | 2025-01-03 10:21 | W.PN.URO.CBU ---
Today's Communication / Plan
-
home when ok hospitalist
Assessment / Plan
-
sp tube and sepsis will continue uiv abs pos blood cxs . urologically stable
Diagnosis
-
Date of Service: January 03, 2025
-
Patient Diagnosis:
Post Op Day:
Patient Diagnosis:
Post Op Day:
Patient Diagnosis:
Post Op Day:
Patient Diagnosis:
Post Op Day:
Patient Diagnosis:
Post Op Day:
Patient Diagnosis:
Post Op Day:
Patient Diagnosis:
complex uti / sepsis syndrome in pt with asp tube changed 1 week ago
Post Op Day:
Subjective
-
nurses report no gu problems
Objective
-
Vital Signs
Temp Pulse Resp BP Pulse Ox
98 F 85 14 147/63 96
01/03/25 07:50 01/03/25 09:21 01/03/25 07:50 01/03/25 09:21 01/03/25 07:50
Intake and Output
01/02/25 01/03/25 01/04/25
06:59 06:59 06:59
Intake Total 210 / 210 480 / 480
Output Total 500 / 500 1600 / 1600
Balance -290 / -290 -1120 / -1120
Intake:
Oral fluids 210 / 210 480 / 480
Output:
Urine, Voided 500 / 500 600 / 600
Suprapubic output 1000 / 1000
Laboratory Results
01/02/25 06:20
01/03/25 05:25
Review of Systems
-
: Difficulty Voiding
Physical Exam
-
General - well developed, well nourished, no acute distress
Chest - clear bilaterally
Abdomen - soft, non-tender, positive bowel sounds, no CVAT, no incisional pain or distention
Genitalia - normal
Rectal - normal
Skin - warm & dry with no rash
Neuro - AOx3, no motor deficits
Extremities - no clubbing, no cyanosis, no edema
Incision - clean, dry
Dressing - clean, dry, intact
[2025-01-03] MEDS: KCL 40 MEQ PO (11:09)
[2025-01-03 11:33] VITALS: BP 139/57
--- NOTE | 2025-01-03 12:13 | W.PN.CARDCBS ---
Addendum entered and electronically signed by Maninder Messer MD 01/03/25 17:22:
84-year-old man who resides at [facility], history of neurogenic bladder and suprapubic tube, admitted with hospital associated UTI and enterococcal bacteremia,
PMH/PSH: Prior stroke, residual left hemiparesis, hypertension, hyperlipidemia, neurogenic bladder with suprapubic tube, dementia
Current meds: Rocephin, atorvastatin 20 mg a day, Plavix 75 mg a day, diclofenac gel, duloxetine 60 mg a day, Neurontin 100 mg twice daily, magnesium, MiraLAX, Senokot, enoxaparin, valsartan 80 mg a day, ampicillin, nifedipine ER 40 mg a day
139/57, pulse 84, respiratory rate 14, afebrile, sats are 96%, offers no complaints at present, wants to get back to [facility], does not recall why he is in the hospital, asked about his midline IV. Head neck exam unremarkable lungs are
clear, no significant murmurs JVD okay, no edema, diminished pulses
Potassium is 3.4, BUN/creatinine are 16 and 0.9, proBNP is 304
Impression:
Enterococcus bacteremia
CAUTI
Hypokalemia, mild
Anemia, chronic
CVA with residual left hemiparesis, on chronic Plavix
Hypertension
Hyperlipidemia
Neurogenic bladder with chronic suprapubic catheter
Dementia
Plan:
He seems stable from cardiac standpoint. On transthoracic echo there was no evidence of endocarditis. Discussed with Dr. Armenta. Given his multiple comorbidities would prefer to hold off on transesophageal echo at this time.
Suspicion that patient has endocarditis is fairly low. Would recommend treatment duration for catheter associated UTI without associated endocarditis. If bacteremia recurs quickly we will rethink our strategy.
proBNP is low, suspect volume status is good.
Otherwise acceptable cardiac status.
Will sign off, please call if questions.
Original Note:
Today's Communication / Plan
-
Would try to avoid LISA if possible as he his higher risk and would not be surgical candidate
Continue abx per primary service.
Agree w/ repleting K
Impression / Plan
-
Primary Internet Network Specialist: none, initially seen by Dr. KATRIN Messer
Assessment:
Presented with cloudy urine, fever
Sepsis
Enterococcus bacteremia
CAUTI
Hypokalemia, mild
Anemia, chronic
CVA with residual left hemiparesis, on chronic Plavix
Hypertension
Hyperlipidemia
Neurogenic bladder with chronic suprapubic catheter
Dementia
Echo 01/01/2025: EF 60 to 65%, moderate concentric LVH, severe MAC predominantly on posterior mitral valve leaflet, trace MR, no evidence of vegetation
Plan:
-Patient presented with cloudy urine and fever and found to be septic with Enterococcus bacteremia from CAUTI. Cardiology consulted for consideration of LISA.
-Repeat blood cultures remain without growth. No further fevers noted.
-Continue abx per ID.
-TTE 01/01 with preserved EF and no evidence of vegetation. Not ideal candidate for LISA given h/o CVA w/ residual hemiparesis and chronic anemia. Also would not be candidate for surgical intervention if was found to have endocarditis. Would avoid LISA
if possible.
-Continue plavix, lipitor.
-BP stable on nifedipine.
-K low at 3.4, agree w/ repletion.
HPI: Patient is an 84-year-old male resident of [facility], with past medical history of CVA with residual left hemiparesis, hypertension, hyperlipidemia, neurogenic bladder with chronic suprapubic catheter who presented to [facility] ER due to staff
noting cloudy urine. He was febrile on admission, and being treated for sepsis/CAUTI with antibiotics. His blood cultures initially grew out Enterococcus, however by most recent blood cultures thus far have cleared. Cardiology is consulted for
evaluation for LISA. Patient denies chest pain, shortness of breath, palpitations. He denies history of cardiac issues to his knowledge.
Progress Note - Internet Network Specialist
Subjective
Date of Service: January 03, 2025
No complaints this AM other than dry mouth.
Objective
Labs:
01/02/25 06:20
01/03/25 05:25
Labs
Hgb 9.3 g/dL (13.0-18.0) L 01/02/25 06:20
Hct 29.3 % (39.0-52.0) L 01/02/25 06:20
Plt Count 335 10^3/uL (130-400) D 01/02/25 06:20
Sodium 135 mmol/L (135-145) 01/03/25 05:25
Potassium 3.4 mmol/L (3.5-5.1) L 01/03/25 05:25
BUN 16 mg/dl (9-20) 01/03/25 05:25
Creatinine 0.9 mg/dL (0.7-1.3) 01/03/25 05:25
Glucose 112 mg/dl (70-99) H 01/03/25 05:25
Vital Signs and I&O:
Vital Signs
Temp Pulse Resp BP Pulse Ox
98 F 84 14 139/57 96
01/03/25 11:33 01/03/25 11:33 01/03/25 11:33 01/03/25 11:33 01/03/25 11:33
Vital Signs
Temp Pulse Resp BP Pulse Ox
98 F 84 14 139/57 96
01/03/25 11:33 01/03/25 11:33 01/03/25 11:33 01/03/25 11:33 01/03/25 11:33
Intake & Output
01/01/25 01/02/25 01/03/25 01/04/25
06:59 06:59 06:59 06:59
Intake Total 120 / 120 210 / 210 480 / 480
Output Total 2625 / 2625 500 / 500 1600 / 1600
Balance -2505 / -2505 -290 / -290 -1120 / -1120
Physical Exam
Physical Exam
GEN: No distress, awake, alert, lying in bed
HEENT: supple, anicteric, mmm
LUNGS: CTA b/l, no wheezes/rales
CV: Reg, S1/S2, no murmur
EXT: No clubbing, cyanosis, or edema
NEURO: Gross non-focal
SKIN: Warm, dry, no rash
--- NOTE | 2025-01-03 13:25 | W.PN.ID1 ---
Date of Service
Date of Service: January 03, 2025
Today's Communication
Plan to treat with ampicillin IV 2g q4h and ceftriaxone 2g q12 x 2 weeks through 01/14/25, then observe closely
Assessment / Plan
# Enterococcus faecalis bacteremia (2 sets)
# Fever resolved
# Leukocytosis resolved
# Neurogenic bladder with chronic suprapubic catheter, changed December 28.
- Repeat blood cx 06/26 set + Enterococcus faecalis
- Repeat bcx's x 2 neg to date
- CT a/p: no acute intra-abd pathology
- TTE: no gross vege
- Discussed with cardiology - pt deemed mod -high risk LISA
-Suspect CAUTI source of bacteremia?
- Plan to treat with ampicillin IV 2g q4h and ceftriaxone 2g q12 x 2 weeks through 01/14/25, then observe closely
Weekly CBC, CMP while on IV abx.
- Infusion sheet submitted to dependency case manager.
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
Dementia
CVA with left hemiparesis
Hypertension
HLD
Depression
Neurogenic bladder with chronic suprapubic catheter
Cholecystectomy
SNF resident
Chief Complaint
-: Bacteremia
Subjective / Review of Systems
No new complaints. No back pain.
Vital Signs / Physical Exam
Vital Signs
Vital Signs
Temp Pulse Resp BP Pulse Ox
98 F 84 14 139/57 96
01/03/25 11:33 01/03/25 11:33 01/03/25 11:33 01/03/25 11:33 01/03/25 11:33
Physical Exam
Constitutional: No Acute Distress
Cardiovascular: Regular Rate and S1/S2
Pulmonary: Clear
Gastrointestinal: Soft, Non Tender and Non Distended
Genito-Urinary: Clear Urine (SPC)
Extremities: Negative Edema
Neurological: Awake and Alert
Objective Data
Lab Data
Lab Results
01/02/25 06:20
01/03/25 05:25
Estimated Creat Clear 59 ml/min 01/03/25 05:25
Lactic Acid 1.7 mmol/L (0.7-2.0) 12/27/24 12:04
Total Bilirubin 0.6 mg/dl (0.2-1.3) 12/26/24 16:22
AST 29 U/L (17-59) 12/26/24 16:22
ALT 26 U/L (0-50) 12/26/24 16:22
Alkaline Phosphatase 151 U/L (38-126) H 12/26/24 16:22
Most recent labs reviewed.
Micro Results:
01/01/25 09:04 Blood Culture - Preliminary
Blood/Venous No Growth in 48 hours- Final report to follow
01/01/25 07:00 Blood Culture - Preliminary
Blood/Venous No Growth in 48 hours- Final report to follow
12/29/24 06:15 Blood Culture - Preliminary
Blood/Venous Enterococcus faecalis
Gram Stain - Preliminary
12/26/24 16:49 Blood Culture - Final
Blood/Venous Enterococcus faecalis
Gram Stain - Final
12/26/24 16:23 Urine Culture - Final
Urine
Care Review
Plan reviewed with: Physician (Drs. Craven and Frank Messer)
--- NOTE | 2025-01-03 13:30 | W.PN.UPDATE ---
Update Note
Progress Note Update
Case discussed with Dr. Armenta. No LISA, will tx with 2 weeks abx, OK to place PICC/midline. The patient is medically cleared for discharge after PICC/midline placed. Case management aware.
--- NOTE | 2025-01-03 14:28 | CM ---
Addendum entered by Criselda Valerio 01/04/25 09:04:
Ambulance scheduled for today at 10am for discharge to [facility]. and daughter aware; IMM issued on 01/03/2025.
Report # [phone]

Addendum entered by Guera Klein 01/03/25 18:07:
Change in Discharge plan discussed with patient's and daughter via phone; Attending notified; PT/OT ordered
Addendum entered by Guera Klein 01/03/25 17:36:
[facility] cannot manage patient in senior care care; requested that authorization be submitted for SNF
Plan: Discharge to [facility] SNF pending Authorization approval
Addendum entered by Guera Klein 01/03/25 16:00:
Per [facility] request, case specialist called [facility] # [phone]; was told that patient's plan is [employer]age Preferred.
Was transferred to Med Injectables department @ # [phone], option 5. Wage And Salary Specialist reported that IV ABX ordered do not require Authorization; facility notified
IMM benefit discussed with patient's daughter, Nathaly Carreon, via phone; form dated/timed @ 1605
Plan: Return to [facility] via ambulance on 01/04; Ambulance merchandise pickup/receiving associate scheduled for 10:00 AM tomorrow morning
Report # [phone]
In addition to Discharge Summary, need to Fax PICC line documentation and x-ray report when available to [facility]

Addendum entered by Guera Klein 01/03/25 14:58:
Transport forms faxed to [facility] ammunition storage superintendent; requested 1000 ambulance merchandise pickup/receiving associate for Monday, 01/04
Addendum entered by Guera Klein 01/03/25 14:44:
script for IV antibiotics faxed to Nursing station @ [facility] as directed to
Original Note:
Plan: patient will return to [facility] via ambulance tomorrow morning
Report # [phone]
In addition to Discharge Summary, need to Fax PICC line documentation and x-ray report when available to [facility]
[2025-01-03] MEDS: LOVENOX 40 MG SC (17:34)
[2025-01-03 19:00] VITALS: BP 93/56
[2025-01-03] MEDS: MELATONIN 3 MG PO (21:13)
[2025-01-03] MEDS: LIPITOR 20 MG PO (21:13)
--- NOTE | 2025-01-03 22:33 | PTCARENOTE ---
Oral care was not performed on patient because he stated that it was his preference to do it in the morning.
[2025-01-03 23:00] VITALS: BP 158/65
[2025-01-04] MEDS: AMPICILLIN 108 MG IV ×3 (02:57→10:19)
[2025-01-04] MEDS: ROCEPHIN 2000 MG IV (02:57)
[2025-01-04] MEDS: STERILE WATER FOR INJECTION 20 ML IV (02:57)
[2025-01-04 03:00] VITALS: BP 163/77
[2025-01-04 07:12] LABS: Blood Urea Nitrogen 17 mg/dl (9-20); Calcium 7.9 mg/dl (8.4-10.2); Carbon Dioxide 24 mmol/L (22-30); Chloride 106 mmol/L (98-107); Estimated Creatinine Clearance 59 ml/min; Glucose 120 mg/dl (70-99); Potassium 3.8 mmol/L (3.5-5.1); Sodium 136 mmol/L (135-145); eGFR > 60.00
[2025-01-04 07:32] VITALS: BP 180/77
--- NOTE | 2025-01-04 07:49 | W.PN.HOSP.TC ---
Addendum entered and electronically signed by Joseph Craven MD 01/04/25 09:43:
Total time spent on d/c = 34 min. This included today's physical exam, progress note, review of laboratory and diagnostic data, preparation of discharge documents and prescriptions, and discussions about the pt's hospital course and discharge plan
with the patient and other manager medical involved in the patient's care.
Original Note:
Today's Communication/Plan
-
d/c
Assessment / Plan
Assessment / Plan
84 M with a medical history of CVA (left hemiparesis), hypertension, and neurogenic bladder (chronic suprapubic catheter) who presented from his nursing facility with cloudy urine from his SPC and leukocytosis. He was febrile on admission with a
Tmax of 103 �F, lactic acid 2.7, and a leukocytosis of 21,000. He was started on antibiotics with IV cefepime and admitted for further evaluation and management of sepsis secondary to UTI.
Gen: continues to remain NAD, Awake and alert
Eyes: EOMI, PERRLA, no scleral icterus.
Neck: supple.
CV: RRR, +S1/S2, no m/r/g.
Resp: continues to remain CTAB anteriorly, no rales, wheezes, or rhonchi.
Abd: +BS, soft, NT, ND
Skin: No rashes.
Neuro: CN 2-12 intact, L-hemiparesis
Psych: Normal mood and affect.
01/01/25 07:00 Blood/Venous Blood Culture - Preliminary
No Growth in 72 hours- Final report to follow
01/01/25 09:04 Blood/Venous Blood Culture - Preliminary
No Growth in 48 hours- Final report to follow
12/29/24 06:15 Blood/Venous Blood Culture - Preliminary
Enterococcus faecalis
12/29/24 06:15 Blood/Venous Gram Stain - Preliminary
12/26/24 16:49 Blood/Venous Blood Culture - Final
Enterococcus faecalis
12/26/24 16:49 Blood/Venous Gram Stain - Final
12/26/24 16:23 Urine Urine Culture - Final
TTE: Left ventricle is small in size. Moderate concentric left ventricular
hypertrophy. Normal left ventricular systolic function. Left ventricular
ejection fraction is 60-65% by Carballo's method of discs. Normal regional wall
motion. Normal diastolic function.
Thickened mitral valve leaflets. Severe mitral annular calcification, seen
predominately on posterior mitral valve leaflet. Trace mitral regurgitation.
Indexed LA volume is within normal range (15-34 mL/m2).
There is no evidence of vegetation seen. However if clinical suspicion is high
would suggest LISA.
CT A/P: New small bilateral pleural effusions and bilateral lower lobe opacification, right slightly greater than left. Opacification most likely representing subsegmental atelectasis. Pneumonia, particularly in the right lower lobe cannot be
excluded. Small volume free fluid, particularly perihepatic. No free air or gross abnormal focal fluid collection. No intestinal obstruction. Fluid density filling and mildly distending the rectum with some mild wall thickening, nonspecific, cannot
exclude proctitis. Suprapubic urinary bladder catheter, urinary bladder proper essentially empty with at least relative diffuse wall thickening due to underdistention. Other etiology such as cystitis cannot be excluded. Prior cholecystectomy.
Sepsis secondary to CAUTI (POA, had SPT on admission):
-h/o neurogenic bladder
-s/p sepsis bolus of 2.5L IVFs on admission
-lactic acidosis and leukocytosis have resolved
-urology following and exchanged suprapubic catheter 12/28 at bedside
-1 of 2 BCxs on admission with Enterococcus, cont Ampicillin/Rocephin
-repeat BCx 12/29/24 with enterococcus, 01/01/25 BCx NGTD
-TTE without veg
-CT A/P without source of infection
-as per ID, no need for LISA, tx with Ampicillin 2g IV Q4H and ceftriaxone 2g IV Q12H through 01/14/25
Essential Hypertension:
-with hypertensive urgency
-has had labile BPs
-cont Procardia XL/valsartan at current dosing
Other problems:
Hypokalemia, resolved
Hyponatremia, resolved
h/o CVA with residual L hemiparesis: cont Plavix/statin
Dementia: cont duloxetine
RN updated
FULL/Lovenox
Remains medically cleared for discharge since 01/03/25.
Anticipated Discharge: Today
Subjective/Interval History
-
Date of Service: January 04, 2025
No new complaints.
Objective Data
-
Labs:
Laboratory Results
01/04/25
06:20
Sodium 136
Potassium 3.8
Chloride 106
Carbon Dioxide 24
BUN 17
Creatinine 0.9
Glucose 120 H
Calcium 7.9 L
Vital Signs:
Vital Signs
Temp Pulse Resp BP Pulse Ox
97.9 F 87 14 180/77 95
01/04/25 07:32 01/04/25 07:32 01/04/25 07:32 01/04/25 07:32 01/04/25 07:32
I&O
01/03/25 01/04/25 01/05/25
06:59 06:59 06:59
Intake Total 480 / 480 1296 / 1296
Output Total 1600 / 1600 1750 / 1750
Balance -1120 / -1120 -454 / -454
[2025-01-04] MEDS: PLAVIX 75 MG PO (07:54)
[2025-01-04] MEDS: NEURONTIN 100 MG PO (07:54)
[2025-01-04] MEDS: DIOVAN 80 MG PO (07:54)
[2025-01-04] MEDS: CYMBALTA DELAYED RELEASE 60 MG PO (07:54)
[2025-01-04] MEDS: VISBIOME 1 CAP PO (07:54)
[2025-01-04] MEDS: PROCARDIA XL (EXTENDED RELEASE) 30 MG PO (07:55)
[2025-01-04] MEDS: DICLOFENAC 1% TOPICAL GEL 100 GRAM TOPICAL (07:55)
[2025-01-04] MEDS: MAG-TAB SR 84 MG PO (07:55)
[2025-01-04] MEDS: MIRALAX PO (07:56)
[2025-01-04] MEDS: SENOKOT PO (07:56)
--- NOTE | 2025-01-04 08:56 | CM ---
Pt cleared for discharge today to [facility]. Midline report faxed.
Ambulance transport scheduled for 10am this morning.
Report # [phone]
[2025-01-04 11:09] VITALS: BP 137/57
--- NOTE | 2025-01-04 13:10 | PTCARENOTE ---
Pt midline left intact for outpatient IV antibiotic therapy. Report attempted to be called multiple times at given phone number, message left with call back number to unit. Awaiting call back at this time to give report. Pt picked up at 1245.
--- NOTE | 2025-01-04 13:58 | W.DCSUMMARY ---
Discharge Summary
Discharge Data
Date of Admission: 12/26/24
Date of Discharge: 01/04/25
-
Pending Results: No
Hospital Course
Primary diagnoses:
Sepsis secondary to catheter associated urinary tract infection
Essential hypertension with hypertensive urgency
History of neurogenic bladder with suprapubic tube
Lactic acidosis
Leukocytosis
Secondary diagnoses:
Hypokalemia
Hyponatremia
h/o cerebrovascular accident with residual L hemiparesis
Dementia
Consultants:
Infectious disease
Cardiology
Neurology
Imaging:
TTE: Left ventricle is small in size. Moderate concentric left ventricular
hypertrophy. Normal left ventricular systolic function. Left ventricular
ejection fraction is 60-65% by Carballo's method of discs. Normal regional wall
motion. Normal diastolic function.
Thickened mitral valve leaflets. Severe mitral annular calcification, seen
predominately on posterior mitral valve leaflet. Trace mitral regurgitation.
Indexed LA volume is within normal range (15-34 mL/m2).
There is no evidence of vegetation seen. However if clinical suspicion is high
would suggest LISA.
CT A/P: New small bilateral pleural effusions and bilateral lower lobe opacification, right slightly greater than left. Opacification most likely representing subsegmental atelectasis. Pneumonia, particularly in the right lower lobe cannot be
excluded. Small volume free fluid, particularly perihepatic. No free air or gross abnormal focal fluid collection. No intestinal obstruction. Fluid density filling and mildly distending the rectum with some mild wall thickening, nonspecific, cannot
exclude proctitis. Suprapubic urinary bladder catheter, urinary bladder proper essentially empty with at least relative diffuse wall thickening due to underdistention. Other etiology such as cystitis cannot be excluded. Prior cholecystectomy.
84-year-old male who presented with a chief complaint of 'abnormal outpatient labs' as outlined in the H&P done on admission.
Sepsis secondary to catheter associated urinary tract infection: Patient had a suprapubic tube for neurogenic bladder on admission. The patient met sepsis criteria on admission. He received a sepsis bolus of 2.5L IVFs on admission followed by IV
fluids. His lactic acidosis and leukocytosis resolved. Urology saw in consultation and exchanged suprapubic catheter on 12/28/24 at bedside. The patient was initially on cefepime. 1 of 2 BCxs on admission with Enterococcus and he was transitioned
to ampicillin. Repeat BCx 12/29/24 grew enterococcus, 01/01/25 BCx were NGTD. TTE was without vegetation. CT A/P was without source of infection. As per ID, no need for LISA, tx with Ampicillin 2g IV Q4H and ceftriaxone 2g IV Q12H through 01/14/25.
Essential Hypertension: The patient had hypertensive urgency. Procardia XL was added to his valsartan. Of note he did have labile blood pressures while hospitalized.
Discharge Plan
-
Patient Disposition: [facility]SNF
Discharge Diagnosis/Procedures: Sepsis secondary to catheter associated urinary tract infection
Condition: Good
Diet: Low Cholesterol
Activity: With assistance
Driving Restrictions: No driving
Blood Work: BMP and CBC in 1 week
Activity Restrictions/Additional Instructions:
Rocephin and ampicillin through 01/14/25
Referrals:
Kimberli Burrell MD [Family Provider, Internal Medicine] - in less than 1 week
Prescriptions:
New
Ampicillin 2000 MG
0.9% Sodium Chloride 100 ml [Nss] 100 ML
108 mls/hr IV Q4H
Ordered By: Joseph Craven MD
Last Taken: 01/04/25 10:19 108 mls
ceftriaxone 2 gram Recon Soln
2,000 mg IV Q12H Qty: 0 0RF
nifedipine 30 mg Tablet Extended Release
30 mg PO DAILY Qty: 0 0RF
Continued
sennosides [senna] 8.6 mg Tablet
17.2 mg PO BID
acetaminophen [Tylenol] 325 mg Tablet
650 mg PO Q4HPRN MDD 3000 mg PRN (Reason: general discomfort)
atorvastatin [Lipitor] 20 mg Tablet
20 mg PO HS
valsartan 80 mg Tablet
80 mg PO DAILY
melatonin 3 mg Tablet
3 mg PO HS
clopidogrel [Plavix] 75 mg Tablet
75 mg PO DAILY
magnesium hydroxide [Milk of Magnesia] 400 mg/5 mL Suspension
2,400 mg PO [id number] PRN (Reason: if no BM after 9 shifts)
bisacodyl [Dulcolax (bisacodyl)] 10 mg Suppository
10 mg ME [id number] PRN (Reason: IF NO BM BY 12 SHIFTS)
Fleet Enema 19-7 gram/118 mL Enema
118 ml ME .[id number] PRN (Reason: if no Bm on 4th day)
gabapentin 100 mg Capsule
100 mg PO BID
ergocalciferol (vitamin D2) 1,250 mcg (50,000 unit) Capsule
1,250 mcg PO QMONTH
Rx Instructions:
TAKE Of THE 12TH OF EACH MONTH.
diclofenac sodium 1 % Gel
0 g TOPICAL BID
polyethylene glycol 3350 17 gram Powder In Packet
17 g PO DAILY
zinc oxide 20 % Ointment
1 applic TOPICAL TID
duloxetine 60 mg capsule,delayed release(DR/EC)
60 mg PO DAILY
magnesium oxide 400 mg magnesium capsule
400 mg PO DAILY
[facility] 10 billion cell -200 mg Capsule, Sprinkle
1 cap PO DAILY
[place] Protect (zinc oxide) 12 % Cream
1 applic TOPICAL TID
Patient Comments:
12/26/2024, apply every shift.
Discharge Orders:
Discharge Patient (As Directed); Ordered 01/04/25
Ordered By: Joseph Craven
Discharge Date and Time
Discharge Date/Time: 01/04/25 13:34
Print Language: SPANISH
== END 2025-01-04 13:34 | DRG 698 ==
LOC: 3 WEST ACU 18:59
PROVIDERS: Internal Medicine; Nurse Practitioner; Nurse Practitioner Family; ADMITTING PHYSICIAN Student in an Organized Health Care Education/Training Program; ATTENDING PHYSICIAN Internal Medicine; CONSULT PHYSICIAN Internal Medicine Cardiovascular Disease; CONSULT PHYSICIAN Specialist; EMERGENCY PHYSICIAN Emergency Medicine; FAMILY PHYSICIAN Internal Medicine; OTHER PHYSICIAN Internal Medicine Infectious Disease
DX: T83.518A Infection and inflammatory reaction due to other urinary catheter, initial encounter (principal); A41.81 Sepsis due to Enterococcus; E87.1 Hypo-osmolality and hyponatremia; E87.20 Acidosis, unspecified; I69.354 Hemiplegia and hemiparesis following cerebral infarction affecting left non-dominant side; N39.0 Urinary tract infection, site not specified; Y84.6 Urinary catheterization as the cause of abnormal reaction of the patient, or of later complication, without mention of misadventure at the time of the procedure; E87.6 Hypokalemia; I11.0 Hypertensive heart disease with heart failure; I50.9 Heart failure, unspecified; Z79.02 Long term (current) use of antithrombotics/antiplatelets; L89.151 Pressure ulcer of sacral region, stage 1; I16.0 Hypertensive urgency; Z79.899 Other long term (current) drug therapy; Z11.52 Encounter for screening for COVID-19
CPT/HCPCS: 74177; 80048; 80053; 81003; 81015; 83605; 83735; 83880; 85025; 85027; 87040; 87077; 87086; 87154; 87186; 87205; 87811; 93005; 93306; 96361; 96374; 99284; Q9967

== ENCOUNTER 2025-03-03 14:38 | Inpatient (IN) | payer OTHER, SELFPAY ==
[2025-03-03] VITALS (58 sets, daily range): BP systolic 34–209; BP diastolic 13–185; BMI 24.4
[2025-03-03 12:01] LABS: Glucose - Point of Care 182 mg/dl (70-99)
[2025-03-03 12:14] LABS: Hematocrit 32.9 % (39.0-52.0); Hemoglobin 10.6 g/dL (13.0-18.0); Mean Corp Hgb Conc. 32.2 g/dL (33.0-37.0); Mean Corpuscular Volume 78.7 fL (80.0-94.0); Platelet Count 270 10^3/uL (130-400); Red Cell Dist. Width 17.2 % (11.5-14.5)
[2025-03-03] MEDS: KEPPRA 4500 MG IV (12:22)
--- NOTE | 2025-03-03 12:23 | ED.GENMED ---
History of Present Illness
General
Chief Complaint: Breathing Problem
Source: patient, ambulance crew and prison
Exam Limitations: altered mental status
Time Seen by Provider: 03/03/25 12:03
History of Present Illness
History of Present Illness:
[facility] ED from prison secondary to sudden onset of mental status change, noted by prison staff. Per paramedics, patient found to be obtunded with hypoxia, requiring subsequent oxygen and brought to the hospital. Patient
did respond to placement of intraosseous catheter. Upon arrival, patient is somnolent, and unable to arouse. Unable to obtain any further information at this time.
Past History
Past History
ED Past Medical History: CAD, HTN, Hypercholesterolemia, Psychiatric (depression) and Other (chronic constipation, )
ED Past Surgical History: Urological (suprapubic catheter)
Review of Systems
Review of Systems
Allergies reviewed?: Yes
Unable to obtain full review of systems at this time due to: due to acuity
All Other Systems: Not applicable
Phy Exam
Physical Exam
Physical Exam:
Physical Exam
General: mild distress. unresponsive. afebrile
Head: nc/at
Neck: supple. no jvd
Heart: tachycardic
Lungs: no acute respiratory distress. clear bilaterally
Abdomen: normal bowel sounds. no distention
Neuro: somnolent, unresponsive to verbal or physical stimuli.
Skin: no rash
Extremities: no edema.
Scores
Heart Failure Risk
Heart Failure Risk Score: Not Applicable
Course
Orders/Labs/Results
Orders:
Orders
03/03/25 11:58
CT Head W/o Iv Contrast Urgent
Comment:
Reason For Exam: change in mental status
03/03/25 12:07
Complete Blood Count/No Diff Urgent
Glycohemoglobin (HgbA1c) Urgent
Troponin I Urgent
03/03/25 12:10
CR Chest Portable - 1 View Urgent
Comment:
Reason For Exam: sob/hypoxia
Reason Study Needs to be Portable: Patient Unstable
03/03/25 12:11
Electrocardiogram (*1) Stat
Comment: ALREADY DONE IN ED
03/03/25 12:18
Levetiracetam Injectable [Keppra] 4,500 mg IV NOW STA
03/03/25 12:22
EEG Routine Urgent
Reason for Exam: seizure
03/03/25 12:26
Cardiovascular Evaluation Urgent
Comment: ADD ON
Comprehensive Metabolic Panel Urgent
Magnesium Urgent
Comment: ADD ON
Blood Culture Q30M
FEI Source: Blood/Venous
Specimen Description:
Blood Culture Q30M
FEI Source: Blood/Venous
Specimen Description:
03/03/25 12:27
Lactic Acid Q4H
Comment: CANCEL 2nd LACTIC ACID IF 1st LACTIC ACID IS LESS THAN 2
03/03/25 12:36
NEUROLOGY CONSULT Urgent
Consulting Provider: Philip Montenegro
Was physician already notified: Yes
Reason for consult: cva
03/03/25 13:01
Potassium Chloride [KCl] 40 meq 0.9% Sodium Chloride 250 ml [Nss] 250 ml IV NOW
03/03/25 13:02
Add On- LAB Routine
Tests Added?: lipid panel, hgb A1C
03/03/25 13:40
Add On- LAB Routine
Tests Added?: mag level
03/03/25 14:00
Aspirin 300 mg RECTAL DAILY
03/03/25 14:06
Admit/Transfer Patient As Directed
Co-Sign Provider:
Level of Care: Inpatient admission
Assign to:: Medical/Surgical
Physician / Group: Hospitalist
Diagnosis: CVA
Reason for Hospitalization: CVA
Expected length of stay greater than two midnights?: Yes
ELOS- Estimated Length of Stay in days: 3
I certify the patient meets the requirements for IP care: Yes
PRN Pain Medication Management As Directed
May give lesser potent ordered pain med per pt: Yes
preference::
Protocol:: Medication orders for pain may be administered in a
manner that supports deferring to patient preference
when the pt is:
- Requesting an ordered lesser potent pain medication.
Least to most potent pain medications are defined
as: acetaminophen < NSAID < tramadol < opioids
(morphine, oxycodone, hydromorphone).
- Requesting a lesser dose of the same medication IF
ORDERED.
- Requesting a less intrusive route of administration
if both routes are prescribed by the provider (PO <
IV).
03/03/25 14:08
Code Status As Directed
Resuscitation Status: Do not resuscitate
Reached after discussion with pt or family/Healthcare POA: Yes
DNR Bracelet Application ONCE
03/03/25 15:47
Urinalysis Reflex To Culture Urgent
Comment: ORIGINAL SPECIMEN QNS
Urine Microscopic Reflex Cult Urgent
Urine Culture Urgent
FEI Source: U
Specimen Description:
03/03/25 19:51
Acetaminophen [Tylenol/Feverall] 650 mg RECTAL Q4HPRN PRN
Acetaminophen [Tylenol] 650 mg PO Q4HPRN PRN
Enoxaparin Sodium [Lovenox] 40 mg SC QPM
03/03/25 19:51
Case Management Consult ONCE
Case Management Consult: Discharge Planning
Comment: stroke/tia
DIETARY IP CONSULT Routine
Reason for Consult: stroke/TIA
[employer] Lecturer Urgent
Activity As Directed
Activity Level: As Tolerated
NIH Stroke Scale As Directed
Directions: Per protocol
Comment: every shift and with any change in condition or mental status
Neurological Checks As Directed
Frequency: q4h
Additional Instructions:: q4h x 24h upon admission to the floor, then qshift & with any change in condition
and mental status
Patient Education As Directed
Type: Stroke education packet
Comment: provide to patient and family
Pneumatic Compression Sleeves As Directed
Type: Knee high
Swallow Screening CVA/TIA ONLY As Directed
Comment: NPO until swallowing screening completed
If patient FAILS swallow screening:: NPO, Speech Therapy consult, Aspiration Precautions
If patient PASSES swallow screening, diet:: Cholesterol Lowering
Vital Signs As Directed
Frequency: Per unit guidelines
DX Deep Vein Thrombosis Video Routine
03/03/25 20:00
Zinc Oxide 20% [Zinc Oxide Ointment] See Dose Instructions TOPICAL BID
03/04/25 08:00
Zinc Oxide 20% [Zinc Oxide Ointment] 1 applic TOPICAL TID
Abnormal Lab Results
03/03/25 03/03/25 03/03/25
11:59 12:07 12:26
RBC 4.18 L 10^6/uL
(4.70-6.10)
Hgb 10.6 L g/dL
(13.0-18.0)
Hct 32.9 L %
(39.0-52.0)
MCV 78.7 L fL
(80.0-94.0)
MCH 25.4 L pg
(27.0-31.0)
MCHC 32.2 L g/dL
(33.0-37.0)
RDW 17.2 H %
(11.5-14.5)
Potassium 2.8 L mmol/L
(3.5-5.1)
Glucose 171 H mg/dl
(70-99)
Hemoglobin A1c 6.1 H %
(4.0-5.6)
Alkaline Phosphatase 187 H U/L
(38-126)
Triglycerides 211 H mg/dl
(10-149)
VLDL Cholesterol, Calc 42 H mg/dl
(0-30)
POC Glucose 182 H mg/dl
(70-99)
03/03/25 12:07
03/03/25 12:26
Vital Signs
Initial and Last Documented VS:
Initial Vital Signs
Pulse Resp
109 20
03/03/25 11:54 03/03/25 11:54
Last Documented Vital Signs
Temp Pulse Resp BP Pulse Ox
98.5 F 98 16 160/63 96
03/04/25 07:10 03/04/25 07:10 03/04/25 07:10 03/04/25 07:10 03/04/25 10:07
MDM/Problems Addressed
MDM/Problems Addressed:
Patient evaluated immediately upon arrival in ED, due to significant mental status change. Afterwards, spoke with patient's spouse and discussed patient presentation, including hypoxia with concern for airway compromise. At this time, however,
spouse does not wish to provide any invasive procedures, i.e. intubation/CPR. Patient will be treated medically with supportive treatment.
CT head findings discussed with on-call neurology, Dr. Montenegro, who subsequently evaluate patient in ED. Agrees with plan to load patient with Keppra and obtaining EEG. Further recommendations to be provided afterwards.
Patient will be admitted under hospitalist service for further eval and treatment.
Critical care statement: A total of 40 minutes of critical care time was provided for this patient. This includes management of unstable vital signs, evaluation of the patient at bedside, reviewing the patient's pertinent medical records, discussion
with consultants, review of old EKGs and review of pertinent medical records. This time with separate from time utilized to perform the aforementioned documented procedures
*Pulse Oximetry
SaO2: 95
Oxygen Mode of Delivery: Midflow Nasal Cannula
Patient hypoxic: yes
*EKG
Interpreted by ED Provider?: Yes
EKG Intrepretation Date: 03/03/25
Heart Rate: 106
Rate: tachycardiac
Rhythm: a-fib
[place]: normal axis
QRS Pattern: right bundle branch block
*Critical Care Note
Total Time (30-74mins, 75-104mins- exclusive of procedures): 40 min
ED Attending Note
-
Portions of this chart may have been created with voice recognition software.� Occasional wrong word or��sound alike� substitutions may have occurred due to the inherent limitations of voice recognition software.
Discharge Plan
Departure
Patient Disposition: Admit
Date of Disposition: 03/03/25
Time of Disposition: 13:08
Admit to: IMU
Presentation/result/management discussed w/ accepting MD/DO: Hospitalist
Discharge Problem:
Acute CVA (cerebrovascular accident), Altered mental status
Interventions
Interventions:
*Risk Screen - Suicide Last Done: 03/03/25 11:54
*General Assessment Last Done: 03/03/25 11:54
*Neglect/Abuse Screening Last Done: 03/03/25 11:54
*ED COVID-19 Vaccine History Last Done: 03/03/25 22:30
*Nursing Disposition Last Done: 03/03/25 21:48
ED- Cardiac Assessment Last Done: 03/03/25 12:11
ED- Pulmonary Assessment Last Done: 03/03/25 12:11
Discharge Date and Time
Discharge Date/Time: 03/03/25 21:49
[2025-03-03 12:40] LABS: Troponin I 0.020 ng/ml
--- NOTE | 2025-03-03 12:49 | CON.NEURO ---
Addendum entered and electronically signed by Philip Montenegro MD 03/03/25 14:19:
Studies reviewed.
I agree with findings as listed by JENNIFER note and individually evaluated the patient. My findings are as below.
Unresponsive. No acute distress. No tremor.
Pupils unresponsive to light.
Reflexes 2+ at right patella and otherwise absent. Severely increased clasp knife rigidity in the left upper extremity distally
Impression/recommendations:
Acute onset of change in mental status in a patient with prior history of a large right middle cerebral artery stroke and CT of head suggestion of subacute left frontoparietal ischemic stroke as well as a prior history of dementia and epilepsy.
Patient's differential diagnosis includes an acute ischemic stroke producing further decline in function, status epilepticus, and toxic metabolic encephalopathy
Check EEG to determine if the patient is experiencing recurrent seizures
Load patient with levetiracetam due to prior history of epilepsy and possible status epilepticus
Continue patient's usual clopidogrel when he is able to take by mouth
Add aspirin, most likely patient will need this medication provided per rectum as 300 mg
Check MRI of brain if possible to determine if the patient has experienced an acute ischemic stroke
Consideration for additional antiseizure medications if EEG suggests status epilepticus
Consideration for comfort care/hospice if patient is not found to have treatable etiologies for decline in cognitive function
When patient is able to take by mouth, continue atorvastatin to reduce stroke risk
Would hold the patient's gabapentin dosing until improvement of cognitive function
Will follow
Original Note:
Documented by User: Sanjana Cunningham NP 03/03/25 13:39
Neuro Assessment/Plan
Assessment
Patient is an 84 year old male with a past medical history significant for CVA (left hemiparesis), hypertension, dementia, and neurogenic bladder (chronic suprapubic catheter) presented to [facility] on 03/03/2025 from [facility] for
evaluation of change in mental status.
Head CT:
1. Large area of abnormally diminished attenuation with loss of triana-white differentiation left frontoparietal region most consistent with recent infarct.
2. Very large chronic right hemispheric infarct as above.
Plan
Impression: abrupt onset of change in mental status with differential diagnosis of status epilepticus, it is unclear if patient has a history of seizure activity and is not on antiepileptic medications, cannot rule out acute ischemic CVA
-obtain EEG to rule out seizure activity
-agree with loading with 4,500 mg levetiracetam and start 1,000 mg IV q 12 hours
-seizure precautions
-give aspirin 300 mg RI, continue clopidogrel when able to take po
-brain MRI and CTA head and neck when able
-check lipid panel and hgb A1C
-check blood work for metabolic disturbances and/or infection
-PT/OT/ST when able
-stroke education material to be provided
-neurochecks per unit guidelines
Consultation
Order
Date of Consultation: 03/03/25
Requesting Provider: Dr. Robledo
Reason for Consult: change in mental status
Subjective/Objective
Subjective Data
Date of Service: March 03, 2025
All information obtained by chart and ED staff as patient is unresponsive and cannot provide any history. Patient is an 84 year old male with a past medical history significant for CVA (left hemiparesis), hypertension, dementia, neurogenic bladder
(chronic suprapubic catheter) presented to [facility] on 03/03/2025 from [facility] for evaluation of change in mental status. According to staff, he was in his normal state of health this morning. Around 11 am, patient had an abrupt
change in mental status with left upward gaze deviation. In ED, patient initially desatting with pulse ox in the 80s on a nonrebreather at [address] showed large chronic right hemispheric infarct and large area of abnormally diminished
attenuation with loss of triana-white differentiation left frontoparietal region most consistent with recent infarct. Status epilepticus suspected and patient was loaded with levetiracetam. It is unclear if the patient has a history of seizures, he is
currently not on any antiepileptic medications. On current exam, patient unresponsive to verbal or physical stimuli. LUE contracted. Continues with left upward gaze deviation. Patient was taking clopidogrel 75 mg and atorvastatin 20 mg prior to
admission. Patient not a TNK candidate out of window.
Objective Data
Vital Signs
Pulse Resp BP Pulse Ox
102 18 133/57 95
03/03/25 12:18 03/03/25 12:18 03/03/25 12:18 03/03/25 12:23
Lab Results
03/03/25 12:07
Sodium Cancelled 03/03/25 12:07
Potassium Cancelled 03/03/25 12:07
BUN Cancelled 03/03/25 12:07
Glucose Cancelled 03/03/25 12:07
Calcium Cancelled 03/03/25 12:07
Patient Allergies
No Known Allergies Allergy (Unverified 10/15/24 08:45)
CVA Assessment
Onset of Stroke Symptoms
Onset of symptoms known: No
Time pt last seen normal is known: No
NIH Stroke Score
Level of Consciousness: 3 - Totally unresponsive
LOC Questions: 2-Neither correct
LOC Commands: 2-Performs neither correctly
Best Horizontal Gaze: 2-Total gaze palsy
Visual Cosme: 0=Normal, no visual loss
Facial Palsy: 0=Normal, symmetrical
Motor - Right Arm: 4=No movement
Motor - Left Arm: 4=No movement
Motor - Right Le-No movement
Motor - Left Le-No movement
Limb Ataxia: 0-Absent
Sensation: 0-Normal
Best Language: 3-Mute/global aphasia
Dysarthria: UN-Intubated, other
Explanation of inability to score dysarthria: mute
Extinction and Inattention: 0-No abnormality
NIH Total Score:: 28
Tenecteplase Contraindications
Inclusion and Exclusion criteria reviewed: Yes
Reasons for NON-Tx with Thrombolytics ABSOLUTE Exclusions: Time-out of window
Review of Systems
-
Unable to obtain full review of systems at this time due to: Dementia and Acuity
Physical Exam
-
Exam limited, patient unresponsive
General: Appears Chronically Ill
Cardiac: No JVD
GI: Non-distended
Skin: Unremarkable
Extremities: No Clubbing, No Cyanosis and No Edema
Psych: Unable to Assess
Extended Neurological Exam
Mood & Affect: Unable to Assess
Attention Span & Concentration: Unresponsive to Verbal Stimuli and Unresponsive to Physical Stimuli
Tremor: Hand Tremor Absent and Head Tremor Absent
Speech: Mute
Cranial Nerve II: Left Eye: Unable to Assess
Cranial Nerve II: Right Eye: Unable to Assess
Cranial Nerves III, IV, : Extraocular Movement: Other (left upward gaze deviation )
Cranial Nerve VIII: Hearing: Unable to Assess
Cranial Nerve XI: Shoulder Shrug: Unable to Assess
Muscle Strength, Overall: Absent (LUE contracted, LLE no movement) and Spontaneously Moves (RLE)
Pronator Drift: Unable to Assess
Deep Tendon Reflexes: Trace (LLE)
Touch Sensation: Unable to Assess
Coordination: Unable to Assess
Data Reviewed
-
CT Head: Report Reviewed and Image Reviewed
EEG: Ordered
Labs: Report Reviewed
Lipid Profile: Ordered
HgbA1C: Ordered
Reviewed with: Physician, Nurse and Patient (Patient unresponsive)
Old Records: Summarized
Medications
-
Home Medications
�Medication �Instructions �Recorded
acetaminophen 325 mg tablet 650 mg PO Q4HPRN PRN general 10/15/24
(Tylenol) discomfort
atorvastatin 20 mg tablet (Lipitor) 20 mg PO HS High Cholesterol 10/15/24
bisacodyl 10 mg rectal suppository 10 mg RI [id number] PRN IF NO BM BY 10/15/24
(Dulcolax (bisacodyl)) 12 SHIFTS
clopidogrel 75 mg tablet (Plavix) 75 mg PO DAILY Blood Clot 10/15/24
Prevention/Tx
diclofenac sodium 1 % topical gel 0 g topical BID left lower back 10/15/24
and hip
gabapentin 100 mg capsule 100 mg PO BID Pain 10/15/24
magnesium hydroxide 400 mg/5 mL 2,400 mg PO [id number] PRN if no BM 10/15/24
oral suspension (Milk of Magnesia) after 9 shifts
melatonin 3 mg tablet 3 mg PO HS Sleep 10/15/24
sennosides 8.6 mg tablet (senna) 17.2 mg PO BID Constipation 10/15/24
sodium phosphates 19 gram-7 118 ml RI [id number] PRN if no Bm on 10/15/24
gram/118 mL enema (Fleet Enema) 4th day
valsartan 80 mg tablet 80 mg PO DAILY Blood Pressure 10/15/24
Lactobacil rhamnosus GG 10 billion 1 cap PO DAILY Supplement 12/26/24
cell-inulin 200 mg sprinkle
capsule ([facility])
duloxetine 60 mg capsule,delayed 60 mg PO DAILY Mental 12/26/24
release Health/Anxiety
magnesium oxide 400 mg PO DAILY Supplement 12/26/24
polyethylene glycol 3350 17 gram 17 g PO DAILY Constipation 12/26/24
oral powder packet
zinc oxide 12 % topical cream 1 applic topical TID buttocks/nevaeh 12/26/24
(Duane Protect (zinc oxide)) area
zinc oxide 20 % topical ointment 1 applic topical BID apply to R 12/26/24
ischium/glute
nifedipine 30 mg tablet,extended 30 mg PO DAILY #0 tabs 01/04/25
release
cholecalciferol (vitamin D3) 125 1,250 mcg PO Q4W Supplement 03/03/25
mcg (5,000 unit) tablet (Vitamin
D3)
Past History
Past History
ED Past Medical History: CAD, HTN, Hypercholesterolemia, Psychiatric (depression) and Other (chronic constipation, )
ED Past Surgical History: Urological (suprapubic catheter)

Documented by User: Philip Montenegro MD 03/03/25 14:12
CVA Assessment
NIH Stroke Score
NIH Total Score:: 28
[2025-03-03 12:56] LABS: ALT (SGPT) 25 U/L (0-50); AST (SGOT) 38 U/L (17-59); Albumin 3.5 g/dl (3.5-5.0); Alkaline Phosphatase 187 U/L (38-126); Blood Urea Nitrogen 19 mg/dl (9-20); Calcium 8.6 mg/dl (8.4-10.2); Carbon Dioxide 29 mmol/L (22-30); Chloride 102 mmol/L (98-107); Estimated Creatinine Clearance 71 ml/min; Glucose 171 mg/dl (70-99); Potassium 2.8 mmol/L (3.5-5.1); Sodium 136 mmol/L (135-145); Total Protein 6.7 g/dl (6.3-8.2); eGFR > 60.00
[2025-03-03] MEDS: KCL 270 MEQ IV (13:31)
[2025-03-03 14:01] LABS: HDL Cholesterol 37 mg/dl; LDL Cholesterol, Calculated 60 mg/dl; Magnesium 2.2 mg/dl (1.6-2.3); Very Low Density Lipoprotein 42 mg/dl (0-30)
[2025-03-03] MEDS: ASPIRIN 300 MG RECTAL (14:11)
--- NOTE | 2025-03-03 14:15 | HPS.HSE ---
Addendum entered and electronically signed by Ab Jones MD 03/03/25 16:02:
Seen and examined the patient with resident. Agree with assessment and plan. See changes in my documentation
Attempted to see the patient while he was getting EEG and then came back to see the patient after EEG was completed.
Late documentation
84-year-old man from [place] around 10:30 AM was seen to have mental status change and was referred to the ER. Patient is obtunded and not able to give me any history history per ER.
On examination patient is obtunded
Pupils are slightly deviated to the left
They are reactive to light
No facial droop noted
Patient is not able to follow any directions or commands
No response to painful stimulus
Hyperreflexia noted on the left side
Decerebrate posturing noted
No Babinski sign
Cardiovascular system S1-S2 appreciated
Chest clear to auscultation anteriorly and laterally
CT of the head-large area of abnormality diminished attenuation with loss of triana-white differentiation left frontoparietal region most consistent with recent infarct. Very large chronic right hemispheric infarct in the right frontal, temporal,
parietal lobes. This also also involves right basal ganglia and thalamus. Some associated ex-vacuo dilatation of the right lateral ventricle. Diffuse volume loss of the cerebellum
EKG-sinus tachycardia with PACs, right bundle branch block. I spoke to the automotive tire testing supervisor who read the EKG there is no atrial fibrillation
# Altered mental status
Unclear reason. Possibly large CVA
Patient was loaded with Keppra
EEG did not show any seizures afterwards
MRI of the brain and CTA of the neck pending
Discussed with neurology regarding posturing and unresponsiveness-repeat CAT scan ordered
Neurology does not feel the patient is a candidate for TNK
Neurochecks and seizure precautions
Permissive hypertension in case this is CVA
Rectal aspirin. Plavix cannot be given as patient cannot be cleared n.p.o.
Multiple areas of stroke makes you wonder if the patient has [id number] on telemetry. So far none of the EKGs have captured A-fib
Keep n.p.o.
IV fluids
# Acute hypoxic respiratory failure
Unclear recent chest x-ray with atelectasis only
CT of the chest PE study
Continue mid flow oxygen wean as tolerated
# Hypokalemia-unclear recent
Not on any medicines such as diuretics
No diarrhea reported
Abdomen is soft and nontender
Replete potassium and follow
# Hypertension by history on nifedipine and valsartan as outpatient
Hold and use IV antihypertensives as needed
# Neurogenic bladder with history of Lopez catheter-chronic
# Prolonged QTc-likely secondary to hypokalemia. Monitor on telemetry and follow
# History of CVA with left-sided hemiplegia on Plavix and statin as outpatient
# Hyperlipidemia-hold statin as n.p.o.
# Depression-hold duloxetine as n.p.o.
# Neuropathy NOS-hold gabapentin as n.p.o.
# Dementia
# DNR per
# DVT prophylaxis-Lovenox
Spoke to patient's daughter and updated regarding patient's condition including posturing and unresponsiveness. Discussed about plan to repeat CAT scan
Discussed with neurology
Prognosis guarded which I discussed with daughter
Time spent over 75 minutes
Original Note:
Family Physician
-
Family Physician: Kimberli Burrell
Chief Complaint
-
Altered mental status
History of Present Illness
84 male with past medical history of CVA with left-sided hemiparesis, dementia, hyperlipidemia, depression, neurogenic bladder with suprapubic catheter presents to the ED from [facility] altered mental status. Patient was completely
obtunded upon arrival and history was obtained for secondary sources. According to the staff at [facility], he was in normal state of health this morning however around 11 AM, patient had abrupt change in mental status with left upper gaze deviation.
They called EMS and he was brought to ED. and daughter at bedside stated they were talking to him 10 days ago.
In the ED, blood pressure 162/86, tachycardic with heart rate 109, saturating 86% with respiratory rate of 20. He required nonrebreather later transitioned to mid flow nasal cannula at 15 L of oxygen when I examined him. Potassium was 2.8. White
blood cell count was within normal limits, lactic acid 1.9 and troponin 0.020. Head CT showed large chronic right hemispheric infarct and large left frontal parietal region more consistent with recent infarct. Chest x-ray revealed right basilar
opacification consistent with atelectasis. EKG was sinus with PAC, right bundle branch block, QTc of 526. Neurology was consulted and they gave aspirin 300. He is outside the TNK candidate window per neurology. They also gave him a loading dose
of Keppra and EEG to rule out status epilepticus. Potassium was repleted in the ER. The patient was able to wiggle his right big toe when asked on command, but otherwise completely unresponsive. Sepsis work up was also started for concerns of his
hypoxemia.
Medical History
Past Medical History
Past Medical History: Reports Other (per below )
Additional Past Medical History:
CVA with left hemiparesis
Neurogenic bladder with suprapubic catheter
Hypertension
Dementia
Hyperlipidemia
Depression
Past Surgical History: Reports Cholecystectomy and Other (Suprapubic catheter placement )
Social History
Unable to obtain full social history at this time due to: Acuity
Family History
Family History: Unable to Obtain
Allergies / Home Medications
Allergies reflects when Allergies were last updated in [employer].
Home Medications with original date entered in [employer]
Allergy/Medication List:
Allergies
Allergy/AdvReac Type Severity Reaction Status Date / Time
No Known Allergies Allergy Unverified 10/15/24 08:45
Home Medications
acetaminophen 325 mg tablet (Tylenol) 650 mg PO Q4HPRN PRN general discomfort 10/15/24
atorvastatin 20 mg tablet (Lipitor) 20 mg PO HS High Cholesterol 10/15/24
bisacodyl 10 mg rectal suppository (Dulcolax (bisacodyl)) 10 mg TN [id number] PRN IF NO BM BY 12 SHIFTS 10/15/24
clopidogrel 75 mg tablet (Plavix) 75 mg PO DAILY Blood Clot Prevention/Tx 10/15/24
diclofenac sodium 1 % topical gel 0 g topical BID left lower back and hip 10/15/24
gabapentin 100 mg capsule 100 mg PO BID Pain 10/15/24
magnesium hydroxide 400 mg/5 mL oral suspension (Milk of Magnesia) 2,400 mg PO [id number] PRN if no BM after 9 shifts 10/15/24
melatonin 3 mg tablet 3 mg PO HS Sleep 10/15/24
sennosides 8.6 mg tablet (senna) 17.2 mg PO BID Constipation 10/15/24
sodium phosphates 19 gram-7 gram/118 mL enema (Fleet Enema) 118 ml TN .[id number] PRN if no Bm on 4th day 10/15/24
valsartan 80 mg tablet 80 mg PO DAILY Blood Pressure 10/15/24
Lactobacil rhamnosus GG 10 billion cell-inulin 200 mg sprinkle capsule ([employer]) 1 cap PO DAILY Supplement 12/26/24
duloxetine 60 mg capsule,delayed release 60 mg PO DAILY Mental Health/Anxiety 12/26/24
magnesium oxide 400 mg PO DAILY Supplement 12/26/24
polyethylene glycol 3350 17 gram oral powder packet 17 g PO DAILY Constipation 12/26/24
zinc oxide 12 % topical cream (Duane Protect (zinc oxide)) 1 applic topical TID buttocks/nevaeh area 12/26/24
zinc oxide 20 % topical ointment 1 applic topical BID apply to R ischium/glute 12/26/24
nifedipine 30 mg tablet,extended release 30 mg PO DAILY #0 tabs 01/04/25
cholecalciferol (vitamin D3) 125 mcg (5,000 unit) tablet (Vitamin D3) 1,250 mcg PO Q4W Supplement 03/03/25
Review of Systems
-
Unable to obtain full review of systems at this time due to: Acuity
Physical Exam
Vital Signs
Vital Signs
Pulse Resp BP Pulse Ox
83 18 135/59 100
03/03/25 13:00 03/03/25 13:00 03/03/25 13:00 03/03/25 13:00
Physical Exam
General: Respiratory Distress
HEENT: PERRLA
Respiratory: Clear
Cardiac: S1/S2 and Regular Rhythm
GI: Soft and Other (Distended, tympanic, increased bowel sounds)
Musculoskeletal: No Clubbing and No Cyanosis
Skin: Warm and Dry
Neuro: Other (Able to wiggle right toe on command, but otherwise unresponsive to verbal stimuli. Left lower extremity hyperreflexia consistent with prior infarct. Posturing noted. )
Laboratory Results
-
03/03/25 12:07
03/03/25 12:26
Laboratory Results
Lactic Acid Cancelled 03/03/25 16:30
Total Bilirubin 0.6 mg/dl (0.2-1.3) 03/03/25 12:26
AST 38 U/L (17-59) 03/03/25 12:26
ALT 25 U/L (0-50) 03/03/25 12:26
Alkaline Phosphatase 187 U/L (38-126) H 03/03/25 12:26
Troponin I 0.020 ng/ml 03/03/25 12:07
Impression/Plan
-
84 y/o male with PMHx CVA with left sided hemiparesis presents with altered mental status most likely due to CVA however status epilepticus cannot be ruled out.
Head CT 03/03/2025:
1. Large area of abnormally diminished attenuation with loss of triana-white differentiation left frontoparietal region most consistent with recent infarct.
2. Very large chronic right hemispheric infarct as above.
Chest x-ray 03/03/2025:
Low lung volumes. Right basilar opacification most likely related to atelectasis.
Altered mental status/ CVA
--Recent infarct noted on head CT but status epilepticus also in differential
--Loading dose of keppra
--EEG pending
--Brain MRI and head and neck CTA pending
--Lipids, hgA1c
--Neurochecks and seizure precautions
--permissive hypertension
--ASA 300 daily per rectum, add plavix when able to tolerate oral
--NPO - speech eval pending
--D5 with 1/2 saline
--Neurology appreciated
Acute hypoxemic respiratory failure
--86% on admission now on 15L mid-flow nasal canula
--Chest x-ray unremarkable
--CTA pending to rule out PE as cause unclear - no lower extremity swelling or erythema noted
--Blood cultures pending
--Wean O2 as able
Hypokalemia
--2.8 in ED - replete
--Poor PO intake vs diarrhea? Increased bowel sounds and tympanic abdomen on exam - will see if develops diarrhea during stay
Hypertension
--Permissive HTN in setting of probable acute stroke
--Currently NPO but will restart home nifedipine and valsartan when able
Neurogenic bladder with chronic lopez cath
--Prior admission here for sepsis secondary to UTI
--UA pending
Prolonged QTc 526
--Avoid QT prolonging medications
#Hx CVA with left sided hemiparesis
#Dementia
#HLD - continue statin when able
#Depression - restart duloxetine when able
#Nerve pain? On gabapentin - likely nerve pain related to prior stroke - restart when able
#Severe mitral annual calcification on echo 01/04/25 - No evidence of vegetation seen but if clinical suspicion for vegetation would recommend LISA
DNR per
DVT Lovenox
[2025-03-03 14:33] LABS: Glycohemoglobin (HgbA1c) 6.1 % (4.0-5.6)
--- NOTE | 2025-03-03 15:09 | EEG.RPT ---
Electroencephalogram Report
Recording
Date of EE03/03/25
Type of EEG: Routine
Length of EEG recordin minutes
Done with Video Recording: Yes
Patient Status: Inpatient
Recording Conditions: Awake and Drowsy
Hyperventilation Performed: No
Photic Stimulation Performed: Yes
Report
LESS THAN 1 HOUR EEG REPORT
LESS THAN 1 HOUR EEG INTERPRETATION:
Mildly to moderately abnormal study for age based on diffuse slowing even for age demonstrated slightly worse from the left hemisphere than right
CLINICAL CORRELATION:
Although normative values not been established for a person of this advanced age the patient�s symmetry of the background suggests that this study was suggestive of mild to moderate bihemispheric cortical dysfunction. No epileptiform features were
demonstrated.
If concerns remain regarding epilepsy, prolonged monitoring may be of assistance.
Clinical correlation is advised.
METHODS:
A 21-channel digital electroencephalogram (EEG) was performed at the bedside in the ICU. The 10/20 international system of electrode placement was used with ECG and lateral/vertical eye movements recorded. The [employer] quantitative EEG analysis
system was performed
IMPRESSION(S):
Quality of study
Fair, limited by muscle artifact
Background
Low amplitude
Anterior-posterior voltage gradient differentiation: Fair�poor
Theta frequency maximal background demonstrated from the right hemisphere, delta maximal from the left hemisphere
Sleep
Drowsiness present
Hyperventilation
Not performed
Photic Stimulation
Failed to activate the record
ECG
Normal rhythm
Abnormal Activity
None
[2025-03-03 15:54] LABS: Urine Character Cloudy (Clear)
[2025-03-03] MEDS: NSS 1000 IV ×2 (17:09→17:44)
[2025-03-03 17:13] LABS: Urine Squamous Cell 0-2 /LPF (Few)
[2025-03-03 17:14] LABS: Urine Red Blood Cell 21-25 /HPF (0-2); Urine White Cell 50-60 /HPF (0-5)
[2025-03-03] MEDS: LEVOPHED 250 IV (17:23)
--- NOTE | 2025-03-03 18:33 | OR.RPT ---
Operative Report
Operative Report
Consent obtained over the phone via resident physicians
Right IJ placed for hypotension
Under sterile technique and ultrasound guidance
Area was cleaned with chlorhexidine. Internal jugular right was noted. Area was anesthetized. Under ultrasound introducer needle was placed. Blood returned. Guidewire was placed through the introducer needle. Introducer needle removed.
Dilator advanced over guidewire. Small incision made in front of guidewire. Dilator was further advanced easily. Dilator was removed. Using sterile gauze pressure was held until was able to last picker triple-lumen. Triple-lumen was advanced over
the guidewire. Guidewire was held for the entire time until catheter was advanced fully. Guidewire removed. All ports freely flushed.
Triple-lumen catheter was sutured into place.
Chest x-ray confirmed placement.
[2025-03-03] MEDS: PITRESSIN 100 IV (18:36)
--- NOTE | 2025-03-03 19:37 | W.PN.UPDATE ---
Update Note
Progress Note Update
I was notified by ER staff that patient was becoming progressively hypotensive down to systolic blood pressure 30s despite being on 2 pressors and I was asked to discuss with the family about goals of care. I discussed with and daughter and
they are in agreement to make patient comfortable and not escalate care further, as patient is deteriorating on 2 pressors. Comfort medications ordered.
[2025-03-03] MEDS: MORPHINE SULFATE 2 MG IV ×2 (19:57→21:52)
--- NOTE | 2025-03-03 21:07 | W.PN.UPDATE ---
Update Note
Progress Note Update
At close to 4pm alerted by nursing that patients BP was significantly elevated 209/185. His oxygen requirements also increased to 15L on the mid-flow and 15 L on a non-rebreather. Labetolol 10mg q6hr PRN was added for HTN. Nurse rechecked BP with
leg pressures and BP was closer to 160s/70s and labetalol not given. Shortly after, patient's BP started to crash in the 40's over 20s. He was given 2 L NS bolus and started on Levophed. The family was updated throughout the changes and they
requested for BP medications to be given although he was DNR even if that meant adding a central line. BP still not stable and a central line was placed to add vasopressin.
While still on vasopressin, the patient's BP was still unstable. The family arrived at the hospital and we discussed goals of care and they opted for comfort measures. We did tell them it was noted his urine did show a possible UTI although he has a
chronic lopez cath with likely bacterial colonization so it could be unrelated. We discussed that we could start antibiotics and give more fluids, but we are not sure how helpful that would be for a meaningful recovery considering his mental status
on presentation and the large areas of infarct noted on CT. They understood and the stated she knows at this point he would rather be comfortable then more interventions to be done at this time.
Due to his critical condition, he was unable to go for chest CTA to rule out PE or get repeat head CT per neurology request to evaluate if stroke was worsening after noting worsening decerebrate posturing.
Comfort care orders were placed and patient was transfered from ICU status to the floors.
[2025-03-03] MEDS: ROBINUL 0.2 MG IV (21:52)
--- NOTE | 2025-03-03 22:30 | PTCARENOTE ---
Patient received from ED, obtunded, copious oral secretions suctioned, medicated per AUG. Incontinent of stool. CHG bath given
[2025-03-04] MEDS: KEPPRA 1000 MG IV ×2 (00:24→08:05)
--- NOTE | 2025-03-04 01:05 | W.PN.UPDATE ---
Update Note
Progress Note Update
On arrival to unit pt vital signs drastically improved to 144/68 oxygen 99% on 6L--without pressors (had been on 2 in ED). Mentation still obtunded. RN suctioned pt for mod secretions. In ED pt was made comfort care due to deteriorating on [address] luciano since showing some improvement will give one dose abx for +UA.
[2025-03-04] MEDS: ROCEPHIN 1000 MG IV (01:42)
[2025-03-04] MEDS: STERILE WATER FOR INJECTION 10 ML IV (01:42)
[2025-03-04 07:10] VITALS: BP 160/63
[2025-03-04] MEDS: ASPIRIN 300 MG RECTAL (08:05)
--- NOTE | 2025-03-04 08:33 | W.PN.HOSP.TC ---
Addendum entered and electronically signed by Ab Jones MD 03/04/25 13:29:
84-year-old man presented unresponsive yesterday. Patient had changes in his vital signs including blood pressure fluctuations, respiratory failure requiring high amounts of oxygen. CAT scan showed a recent infarct. There are signs of gaze
deviation to the left, complete unconsciousness and uneven pupils. Because of the massive nature of the stroke clinically patient's family opted for comfort care/hospice and he is being transferred to hospice inpatient services. Spoke to patient's
she does not have any questions at this point. Explained regarding hospice and what medicines will be using. For comfort only.
Original Note:
Today's Communication/Plan
-
Cancel imaging studies and further lab work
Transition to hospice
Assessment / Plan
Assessment / Plan
84-year-old male with past medical history of CVA with left hemiparesis, neurogenic bladder with suprapubic catheter presents for recurrent CVA. In the ED before patient was able to be transferred to the floors, patient became hypotensive requiring
2 pressors. Patient's family agreed to transition to hospice last night. He is currently off pressure with blood pressure stable and moving to comfort measures.
--Recent infarct noted on head CT but status epilepticus also in differential
--Received loading dose of Keppra in the ED, EEG no seizure activity
--Due to obtunded state and hemodynamic instability last night requiring pressors, patient's family agreed to transition to hospice
--Additional imaging and lab studies were discontinued
Shock -secondary to unclear cause
--Blood pressure dropped to 40s over 20s last night requiring Levophed and vasopressin
--Central line was placed
--2 L of normal saline bolus
--Patient's family decided to move to comfort measures at this point. He was taken off pressors and moved to the floors. Blood pressure is now stable.
Acute hypoxemic respiratory failure
--86% on admission, now stable on 5 L nasal cannula
--Chest x-ray unremarkable
--CTA cancelled as transitioned to comfort cares
--Blood cultures pending
--Wean O2 as able
Hypokalemia
--2.8 repleted in the ED
--He does have diarrhea, labs discontinued as no hospice
Hypertension
--Permissive HTN in setting of probable acute stroke - later hypotensive per above
--Currently NPO but will restart home nifedipine and valsartan when able - transition to hospice
Neurogenic bladder with chronic lopez cath
--Prior admission here for sepsis secondary to UTI
--UA did reveal possible UTI, however likely colonization present
--Afebrile and no white count points away from bacteremia
--He did receive one dose of ceftriaxone overnight with night [employer], however treatment of a possible UTI is unlikely to change his mental status
Prolonged QTc 526
--Avoid QT prolonging medications
#Hx CVA with left sided hemiparesis
#Dementia
#HLD - continue statin when able
#Depression - restart duloxetine when able
#Nerve pain? On gabapentin - likely nerve pain related to prior stroke - restart when able
#Severe mitral annual calcification on echo 01/04/25 - No evidence of vegetation seen but if clinical suspicion for vegetation would recommend LISA
DNR per
DVT Lovenox
Anticipated Discharge: 24 - 48 hours
Subjective/Interval History
-
Date of Service: March 04, 2025
Remains obtunded. Unresponsive to verbal or physical stimuli. Patients family is okay moving to hospice.
Objective Data
-
Labs:
Laboratory Results
03/04/25
06:00
WBC Cancelled
Hgb Cancelled
Hct Cancelled
Plt Count Cancelled
Sodium Cancelled
Potassium Cancelled
Chloride Cancelled
Carbon Dioxide Cancelled
BUN Cancelled
Creatinine Cancelled
Glucose Cancelled
Calcium Cancelled
Total Bilirubin Cancelled
AST Cancelled
ALT Cancelled
Alkaline Phosphatase Cancelled
Vital Signs:
Vital Signs
Temp Pulse Resp BP Pulse Ox
98.5 F 98 16 160/63 100
03/04/25 07:10 03/04/25 07:10 03/04/25 07:10 03/04/25 07:10 03/04/25 07:10
I&O
03/03/25 03/04/25 03/05/25
06:59 06:59 06:59
Output Total 350 / 350
Balance -350 / -350
Review of Systems
-
Unable to obtain full review of systems at this time due to: Acuity
Physical Exam
-
General: Appears Chronically Ill
Respiratory: Clear to Auscultation
Cardiac: Regular Rhythm and S1/S2
GI: Soft, Nondistended, Normal Bowel Sounds and Other (Increased bowel sounds)
Musculoskeletal: No Cyanosis and No Edema
Neuro: Other (Unresponsive to physical or verbal stimuli. Pupils equal, round and reactive, Hyperrelexia of left patellar reflex, absent on right, Babinski negative bilaterally. )
--- NOTE | 2025-03-04 11:00 | HOSPNOTE ---
Spoke with spouse and she is in agreement with inpatient hospice. Spouse will be here at 12:30 to sign consent forms. Admissions will be called to begin hospice chart. CM and Attending updated on plan. Patient will be admitted for management of
shortness of breath.
[2025-03-04] MEDS: MORPHINE SULFATE 2 MG IV (12:00)
[2025-03-04] MEDS: ROBINUL 0.2 MG IV (12:01)
--- NOTE | 2025-03-04 12:23 | CM ---
Patient was admitted from [facility] where he was LTC. Patient had previously been at [facility] as of admission on 01/03/25. CM spoke with patient who confirmed that patient would be referred to Hospice and she agreed to referral
to [facility] hospice. Liaison aware that family to come in shortly and that they would want hospice. Patient now accepted to [facility] hospice and patient for transition to [facility] hospice today. CM will continue to follow for discharge planning needs.
Plan; hospice GIP
--- NOTE | 2025-03-04 13:15 | W.DCSUMMARY ---
Discharge Summary
Discharge Data
Date of Admission: 03/03/25
Date of Discharge: 03/04/25
-
Pending Results: No
Hospital Course
Primary diagnosis:
Altered mental status/CVA
Acute hypoxemic respiratory failure
Shock -unclear cause
Hypokalemia
Hypertension
Neurogenic bladder with chronic An cath
Prolonged QTc
Secondary diagnoses:
History of CVA with left-sided hemiparesis
Dementia
Hyperlipidemia
Depression
Neuropathy
Hospital course:
84-year-old male with past medical history of CVA with left-sided hemiparesis, neurogenic bladder with suprapubic catheter presented to the ED from [facility] with altered mental status. Around 10:30 AM, staff noted an abrupt change in
mental status with left upper gaze deviation. They called EMS and he arrived completely obtunded and hypoxic and 86% saturation. He was placed on nonrebreather and later transition to mid flow nasal cannula. He was hypertensive, tachycardic,
tachypneic, afebrile. Potassium was 2.8. Head CT revealed large chronic right hemispheric infarct and large left frontal parietal region more consistent with recent infarct. Neurology noted he was not a TNK candidate and was provided aspirin.
Due to sudden onset and change, neurology also was concerned about status epilepticus and provided him with loading dose of Keppra and did a EEG. EEG revealed no seizure activity. Plan was to admit to IMU with CTA to evaluate hypoxemic respiratory
failure and further imaging stroke workup. Before he was able to get further testing, patient noted to be increasingly hypertensive with blood pressures up to the 200s over 180s. Before IV labetalol could be given, patient's blood pressure started
to drop to 40s over 20s at which point he was provided 2 L of normal saline and started on Levophed. Family was okay with pressors and consented to a central line for support, however they stated the patient was a DNR, DNI. Vasopressin was added
however blood pressure still remained labile. Oxygen requirements also increased to nonrebreather and max mid flow nasal cannula. Despite being on 2 pressors, patient's blood pressure still labile and goals of care discussion was brought up with
family. At this point, his UA came back and bacteria noted in the patient's urine and we discussed antibiotics and further fluids with the family. The stated that at this point, she knows her would not want all of this done and was
okay transitioning to comfort cares. He was admitted to the floors on comfort cares and weaned off pressors. Remarkably, his blood pressure stabilized and overnight there were no acute events.
Today, patient remains unresponsive to verbal and physical stimuli. We are transitioning to inpatient hospice at request of the family.
Discharge Plan
-
Patient Disposition: Hospice - Inpatient
Discharge Diagnosis/Procedures: Cerebrovascular accident
Acute hypoxemic respiratory insufficiency
Altered mental status
Hypokalemia
Possible urinary tract infection
Neurogenic bladder with chronic An catheter
Prolonged QT intervals
Dementia
Condition: Critical
Diet: As tolerated
Activity: As tolerated
Driving Restrictions: No driving
Bathing Restrictions: None
Referrals:
Kimberli Burrell MD [Family Provider, Internal Medicine]
Prescriptions:
Discontinued
sennosides [senna] 8.6 mg Tablet
17.2 mg PO BID
acetaminophen [Tylenol] 325 mg Tablet
650 mg PO Q4HPRN MDD 3000 mg PRN (Reason: general discomfort)
atorvastatin [Lipitor] 20 mg Tablet
20 mg PO HS
valsartan 80 mg Tablet
80 mg PO DAILY
melatonin 3 mg Tablet
3 mg PO HS
clopidogrel [Plavix] 75 mg Tablet
75 mg PO DAILY
magnesium hydroxide [Milk of Magnesia] 400 mg/5 mL Suspension
2,400 mg PO [id number] PRN (Reason: if no BM after 9 shifts)
bisacodyl [Dulcolax (bisacodyl)] 10 mg Suppository
10 mg AL [id number] PRN (Reason: IF NO BM BY 12 SHIFTS)
Fleet Enema 19-7 gram/118 mL Enema
118 ml AL [id number] PRN (Reason: if no Bm on 4th day)
gabapentin 100 mg Capsule
100 mg PO BID
diclofenac sodium 1 % Gel
0 g TOPICAL BID
polyethylene glycol 3350 17 gram Powder In Packet
17 g PO DAILY
zinc oxide 20 % Ointment
1 applic TOPICAL BID
duloxetine 60 mg capsule,delayed release(DR/EC)
60 mg PO DAILY
magnesium oxide 400 mg magnesium capsule
400 mg PO DAILY
[facility] Lolly Wolly Doodle [facility] 10 billion cell -200 mg Capsule, Sprinkle
1 cap PO DAILY
Duane Protect (zinc oxide) 12 % Cream
1 applic TOPICAL TID
Patient Comments:
12/26/2024, apply every shift.
nifedipine 30 mg Tablet Extended Release
30 mg PO DAILY Qty: 0 0RF
Rx Instructions:
03/03/25: hold for SBP<110
cholecalciferol (vitamin D3) [Vitamin D3] 125 mcg (5,000 unit) Tablet
1,250 mcg PO Q4W
Discharge Date and Time
Print Language: [id number]
== END 2025-03-04 13:38 | disposition hospice, inpatient (51) | DRG 64 ==
LOC: 2 NORTH 14:38
PROVIDERS: ADMITTING PHYSICIAN Hospitalist; CONSULT PHYSICIAN Psychiatry & Neurology Neurology; EMERGENCY PHYSICIAN Emergency Medicine; FAMILY PHYSICIAN Internal Medicine
DX: I63.9 Cerebral infarction, unspecified (principal); J96.01 Acute respiratory failure with hypoxia; R57.9 Shock, unspecified; I69.354 Hemiplegia and hemiparesis following cerebral infarction affecting left non-dominant side; F03.93 Unspecified dementia, unspecified severity, with mood disturbance; N39.0 Urinary tract infection, site not specified; J98.11 Atelectasis; E87.6 Hypokalemia; I10 Essential (primary) hypertension; N31.9 Neuromuscular dysfunction of bladder, unspecified; I45.10 Unspecified right bundle-branch block; F32.A Depression, unspecified; E78.00 Pure hypercholesterolemia, unspecified; G62.9 Polyneuropathy, unspecified; Z66 Do not resuscitate; I25.10 Atherosclerotic heart disease of native coronary artery without angina pectoris; Z79.02 Long term (current) use of antithrombotics/antiplatelets; Z90.49 Acquired absence of other specified parts of digestive tract; Z93.59 Other cystostomy status
CPT/HCPCS: 70450; 71045; 80053; 80061; 81003; 81015; 82962; 83036; 83605; 83735; 84484; 85027; 87040; 87070; 87086; 93005; 95816; 96374; 96375; 99285

== ENCOUNTER 2025-03-04 13:40 | Inpatient (IN) | payer OTHER, SELFPAY ==
--- NOTE | 2025-03-04 14:01 | PTCARENOTE ---
pt chart flipped to GIP this afternoon. pt on 4L of O2 from initial 6L this morning. sat is sitting around 88-90%. pt received entire bedbath this afternoon, sacral border foam placed on DTI, and CDD placed around suprapubic site that had
sanguineous drainage. pt was suctioned, top dentures were removed and placed in container at bedside, and pt is being turned q2hr. and daughter educated at the bedside.
--- NOTE | 2025-03-04 14:09 | HPS.HSE ---
Addendum entered and electronically signed by Ab Jones MD 03/04/25 18:18:
I personally performed a history and physical exam of the patient and discussed management with the resident. I reviewed the resident's note and agree with the documented findings and plan of care HPI/CC.
Transioned to hospice today for altered mental status and massive CVA
Medicines for comfort only
Was discussed with patient's with patient's
Discussed with hospice
Original Note:
Family Physician
-
Family Physician: Kimberli Burrell
Chief Complaint
-
Altered mental status/ CVA
History of Present Illness
84-year-old male with past medical history of CVA with left-sided hemiparesis, neurogenic bladder with suprapubic catheter presented to the ED from [facility] with altered mental status. Around 10:30 AM, staff noted an abrupt change in
mental status with left upper gaze deviation. They called EMS and he arrived completely obtunded and hypoxic and 86% saturation. He was placed on nonrebreather and later transition to mid flow nasal cannula. He was hypertensive, tachycardic,
tachypneic, afebrile. Potassium was 2.8. Head CT revealed large chronic right hemispheric infarct and large left frontal parietal region more consistent with recent infarct. Neurology noted he was not a TNK candidate and was provided aspirin.
Due to sudden onset and change, neurology also was concerned about status epilepticus and provided him with loading dose of Keppra and did a EEG. EEG revealed no seizure activity. Plan was to admit to IMU with CTA to evaluate hypoxemic respiratory
failure and further imaging stroke workup. Before he was able to get further testing, patient noted to be increasingly hypertensive with blood pressures up to the 200s over 180s. Before IV labetalol could be given, patient's blood pressure started
to drop to 40s over 20s at which point he was provided 2 L of normal saline and started on Levophed. Family was okay with pressors and consented to a central line for support, however they stated the patient was a DNR, DNI. Vasopressin was added
however blood pressure still remained labile. Oxygen requirements also increased to nonrebreather and max mid flow nasal cannula. Despite being on 2 pressors, patient's blood pressure still labile and goals of care discussion was brought up with
family. At this point, his UA came back and bacteria noted in the patient's urine and we discussed antibiotics and further fluids with the family. The stated that at this point, she knows her would not want all of this done and was
okay transitioning to comfort cares. He was admitted to the floors on comfort cares and weaned off pressors. Remarkably, his blood pressure stabilized and overnight there were no acute events.
Today, patient remains unresponsive to verbal and physical stimuli. We are transitioning to inpatient hospice at request of the family.
Medical History
Past Medical History
Past Medical History: Reports Other (per below)
Additional Past Medical History:
CVA with left hemiparesis, dementia, hyperlipidemia, depression, neurogenic bladder status post suprapubic catheter, hypertension
Past Surgical History: Reports Cholecystectomy
Social History
Unable to obtain full social history at this time due to: Acuity
Family History
Family History: Unable to Obtain
Allergies / Home Medications
Allergies reflects when Allergies were last updated in [email or web address].
Home Medications with original date entered in [email or web address]
Allergy/Medication List:
Allergies
Allergy/AdvReac Type Severity Reaction Status Date / Time
No Known Allergies Allergy Unverified 10/15/24 08:45
Home Medications
acetaminophen 325 mg tablet (Tylenol) 650 mg PO Q4HPRN PRN general discomfort 10/15/24
atorvastatin 20 mg tablet (Lipitor) 20 mg PO HS High Cholesterol 10/15/24
bisacodyl 10 mg rectal suppository (Dulcolax (bisacodyl)) 10 mg OH [id number] PRN IF NO BM BY 12 SHIFTS 10/15/24
clopidogrel 75 mg tablet (Plavix) 75 mg PO DAILY Blood Clot Prevention/Tx 10/15/24
diclofenac sodium 1 % topical gel 0 g topical BID left lower back and hip 10/15/24
gabapentin 100 mg capsule 100 mg PO BID Pain 10/15/24
magnesium hydroxide 400 mg/5 mL oral suspension (Milk of Magnesia) 2,400 mg PO [id number] PRN if no BM after 9 shifts 10/15/24
melatonin 3 mg tablet 3 mg PO HS Sleep 10/15/24
sennosides 8.6 mg tablet (senna) 17.2 mg PO BID Constipation 10/15/24
sodium phosphates 19 gram-7 gram/118 mL enema (Fleet Enema) 118 ml OH [id number] PRN if no Bm on 4th day 10/15/24
valsartan 80 mg tablet 80 mg PO DAILY Blood Pressure 10/15/24
Lactobacil rhamnosus GG 10 billion cell-inulin 200 mg sprinkle capsule ([facility]) 1 cap PO DAILY Supplement 12/26/24
duloxetine 60 mg capsule,delayed release 60 mg PO DAILY Mental Health/Anxiety 12/26/24
magnesium oxide 400 mg PO DAILY Supplement 12/26/24
polyethylene glycol 3350 17 gram oral powder packet 17 g PO DAILY Constipation 12/26/24
zinc oxide 12 % topical cream (Duane Protect (zinc oxide)) 1 applic topical TID buttocks/nevaeh area 12/26/24
zinc oxide 20 % topical ointment 1 applic topical BID apply to R ischium/glute 12/26/24
nifedipine 30 mg tablet,extended release 30 mg PO DAILY #0 tabs 01/04/25
cholecalciferol (vitamin D3) 125 mcg (5,000 unit) tablet (Vitamin D3) 1,250 mcg PO Q4W Supplement 03/03/25
Review of Systems
-
Unable to obtain full review of systems at this time due to: Acuity
Physical Exam
Vital Signs
Vital Signs
Pulse Ox
90
03/04/25 13:48
Physical Exam
General: Appears Chronically Ill
Respiratory: Clear
Cardiac: S1/S2 and Regular Rhythm
GI: Soft, Non Distended and Other (Increased bowel sounds, tympanic)
Musculoskeletal: No Clubbing and Cyanosis
Skin: Warm and Dry
Neuro: Other (Unresponsive to verbal or physical stimuli, pupils equal round and reactive to light with left upward gaze deviation, corneal reflexes present bilaterally, no Babinski, left patellar reflex hyperreflexic, absent right patellar reflex)
Impression/Plan
-
84-year-old male with past medical history of CVA with left-sided hemiparesis presents with new CVA.
Altered mental status/CVA
-- Patient transition to hospice per family request
-- Further imaging studies and workup discontinued at this time
-- Prioritize patient comfort
-- N.p.o. as patient is completely obtunded
Acute hypoxemic respiratory failure
-- Currently on 5 L nasal cannula
-- Continue for patient comfort, wean as able
Neurogenic bladder with chronic An catheter
Positive UA
-- 1 dose of ceftriaxone last night
-- Discontinue antibiotics at this point in favor of patient's comfort
-- Keep An cath
Shock - unclear cause
--Hypotensive in ED 40s/20s requiring levophed > central line > vasopressin
--Weaned off when put on hospice
--remove central line today
Hypertension
-- Allow hypertension in setting of preferred comfort measures
Hypokalemia
-- Not checking labs in preference of comfort
#HLD
#Depression
#Dementia
#Prior CVA with left sided hemiparesis
DNR
DVT lovenox
On inpatient hospice.
[2025-03-04] MEDS: TRANSDERM-SCOP 1 PATCH TRANSDERM (15:50)
[2025-03-04] MEDS: MORPHINE SULFATE 2 MG IV ×3 (15:51→21:56)
--- NOTE | 2025-03-04 16:11 | CM ---
Patient was in SNF at [place] but now admitted for inpatient hospice with [facility] following discussion with patient family and [facility] liaison. CM will continue to follow for discharge planning needs.
Plan; hospice
[2025-03-04] MEDS: ROBINUL 0.2 MG IV (17:17)
[2025-03-04] MEDS: TYLENOL/FEVERALL 650 MG RECTAL (21:57)
[2025-03-04 21:59] VITALS: BP 142/60
--- NOTE | 2025-03-05 01:34 | HOSPNOTE ---
Late Entry for 03.04.25 Patient signed onto inpatient hospice. Hospice will visit daily.
[2025-03-05] MEDS: MORPHINE SULFATE 2 MG IV ×2 (03:48→10:05)
[2025-03-05 07:00] VITALS: BP 140/62
--- NOTE | 2025-03-05 09:47 | W.PN.HOSP.TC ---
Addendum entered and electronically signed by Ab Jones MD 03/05/25 13:32:
Seen the patient with resident
Agree with the plan put forth
Required 4 mg of morphine overnight looks comfortable
Patient is unresponsive
Continue inpatient hospice care and adjust morphine if needed for comfort
Original Note:
Today's Communication/Plan
-
Continue comfort measures
Assessment / Plan
Assessment / Plan
84-year-old male with past medical history of CVA with left-sided hemiparesis presents with new CVA.
Altered mental status/massive CVA
-- Patient transition to hospice per family request
-- Further imaging studies and workup discontinued at this time
-- Prioritize patient comfort
-- N.p.o. as patient is completely obtunded
-- Corneal reflexes absent
-- Required 4mg morphine overnight
Acute hypoxemic respiratory failure
-- Currently on 5 L nasal cannula > weaned off now on room air
-- Continue for patient comfort
Neurogenic bladder with chronic An catheter
Positive UA
-- 1 dose of ceftriaxone 03/04
-- Discontinue antibiotics at this point in favor of patient's comfort
-- Keep An cath
Shock - unclear cause
--Hypotensive in ED 40s/20s requiring levophed > central line > vasopressin
--Weaned off when put on hospice
Hypertension
-- Allow hypertension in setting of preferred comfort measures
Hypokalemia
-- Not checking labs in preference of comfort
#HLD
#Depression
#Dementia
#Prior CVA with left sided hemiparesis
DNR
DVT lovenox
On inpatient hospice.
Anticipated Discharge: 24 - 48 hours
Subjective/Interval History
-
Date of Service: March 05, 2025
Remains obtunded. Corneal reflexes absent today. Required 4mg morphine last night. Not yet on drip. Satting well on room air.
Objective Data
-
Vital Signs:
Vital Signs
Temp Pulse Resp BP Pulse Ox
98.8 F 95 18 140/62 78
03/05/25 07:00 03/05/25 07:00 03/05/25 07:00 03/05/25 07:00 03/05/25 07:00
I&O
03/04/25 03/05/25 03/06/25
06:59 06:59 06:59
Intake Total 0 / 0
Output Total 775 / 775
Balance -775 / -775
Review of Systems
-
Unable to obtain full review of systems at this time due to: Dementia and Acuity
Physical Exam
-
General: Appears Chronically Ill
Respiratory: Clear to Auscultation
Cardiac: Regular Rhythm and S1/S2
GI: Soft, Nondistended and Normal Bowel Sounds
Musculoskeletal: No Cyanosis and No Edema
Neuro: Other (corneal reflexes absent, areflexia right patellar reflex, hyperreflexia left patellar reflex, unresponsive to sternal rub. )
[2025-03-05] MEDS: ROBINUL 0.2 MG IV (10:04)
--- NOTE | 2025-03-05 10:48 | HOSPNOTE ---
Patient is lethargic however with care becomes uncomfortable and agitated. Encouraged to medicate for comfort. Patient continues to be inpatient appropriate for management of pain and agitation and shortness of breath. Patient will be seen daily. No
family was present during visit.
[2025-03-05 19:00] VITALS: BP 146/71
[2025-03-06] MEDS: MORPHINE SULFATE 2 MG IV ×8 (00:53→18:25)
[2025-03-06] MEDS: ROBINUL 0.2 MG IV ×4 (00:54→17:54)
[2025-03-06] MEDS: TYLENOL/FEVERALL 650 MG RECTAL ×4 (02:24→17:53)
[2025-03-06 07:00] VITALS: BP 156/72
--- NOTE | 2025-03-06 08:09 | W.PN.HOSP.TC ---
Addendum entered and electronically signed by Ab Jones MD 03/06/25 13:00:
Patient unresponsive. Eyes partially open does not respond to verbal or painful stimulus
On as needed morphine
Continue Robinul and scopolamine
Original Note:
Today's Communication/Plan
-
Continue comfort measures
As needed rectal Tylenol for fevers
Assessment / Plan
Assessment / Plan
84-year-old male with past medical history of CVA with left-sided hemiparesis presents with new CVA.
Altered mental status/massive CVA
-- Patient transition to hospice per family request
-- Further imaging studies and workup discontinued at this time
-- Prioritize patient comfort
-- N.p.o. as patient is completely obtunded
-- Corneal reflexes absent
-- Required 4mg morphine overnight
-- Left lower extremity patellar reflex absent (previously hyperreflexic)
Fever
-- Febrile overnight
-- Rectal Tylenol
Acute hypoxemic respiratory failure
-- weaned off O2 now on room air
-- Continue for patient comfort
Neurogenic bladder with chronic An catheter
Positive UA
-- 1 dose of ceftriaxone 03/04
-- Discontinue antibiotics at this point in favor of patient's comfort
-- Keep An cath
Shock - unclear cause
--Hypotensive in ED 40s/20s requiring levophed > central line > vasopressin
--Weaned off when put on hospice
Hypertension
-- Allow hypertension in setting of preferred comfort measures
Hypokalemia
-- Not checking labs in preference of comfort
#HLD
#Depression
#Dementia
#Prior CVA with left sided hemiparesis
DNR
DVT lovenox
On inpatient hospice.
Anticipated Discharge: Today
Subjective/Interval History
-
Date of Service: March 06, 2025
Unresponsive to verbal and physical stimuli. Spiked a fever overnight. Required 4 mg of morphine overnight.
Objective Data
-
Vital Signs:
Vital Signs
Temp Pulse Resp BP Pulse Ox
100.9 F H 103 18 146/71 89
03/06/25 06:05 03/05/25 19:00 03/05/25 19:00 03/05/25 19:00 03/05/25 21:45
I&O
03/05/25 03/06/25 03/07/25
06:59 06:59 06:59
Intake Total 0 / 0 0 / 0
Output Total 775 / 775 625 / 625
Balance -775 / -775 -625 / -625
Review of Systems
-
Unable to obtain full review of systems at this time due to: Dementia and Acuity
Physical Exam
-
General: Appears Chronically Ill
Respiratory: Clear to Auscultation
Cardiac: Regular Rhythm and S1/S2
GI: Soft, Nondistended and Normal Bowel Sounds
Musculoskeletal: No Cyanosis and No Edema
Neuro: Other (Unresponsive to sternal chest rub, verbal stimuli, corneal reflexes absent, no longer left upper deviation, unable to elicit left lower extremity patellar reflex (previously hyperreflexic))
--- NOTE | 2025-03-06 10:24 | HOSPNOTE ---
Patient is very lethargic was medicated prior to visit. Patient appears comfortable at this time, patient does have increased secretions and was medicated with Robinol, some dyspnea noted. Spoke with nurse to medicate prior to care or repositioning.
Patient continues to be inpatient appropriate for management of agitation, pain and increased secretions. Patient will be seen daily.
--- NOTE | 2025-03-06 14:52 | HOSPNOTE ---
AUTHORS MOTIVATIONAL VISITED 84 YEAR OLD PATIENT TO CONDUCT INITIAL DATABASE COORDINATOR ASSESSMENT. PATIENT ADMITTED [facility] HOSPICE SERVICES AND [facility] LEVEL OF CARE WITH THE PRIMARY DIAGNOSIS OF CVA. DATABASE COORDINATOR GREETED PATIENT UPON DATABASE COORDINATOR HIS ROOM, NO RESPONSE. PATIENT ASLEEP
AND APPEARED TO BE RESTING COMFORTABLY WITH SOME GURGLING, NO SIGNS OF PAIN AND/OR DISTRESS. NO FAMILY MEMBERS PRESENT DURING THIS VISIT. PRAYER AND EMOTIONAL SUPPORT PROVIDED NURSE REPORTED MEDICATIONS ADMINISTERED AND PATIENT HAS BEEN RESTING. DATABASE COORDINATOR
CONTACTED PATIENT'S SPOUSE BLAS TO CHECK ON HER AND PROVIDE UPDATES FROM TODAY'S VISIT. SPOUSE AND SHE'S A LOT BETTER NOW THAT PATIENT HAS SIGNED ONTO HOSPICE, SHE REPORTED HER SUPPORTS ARE THEIR 2 DAUGHTERS EULALIA AND VANDANA AND THEIR 2
GRANDCHILDREN THEY ARE COPING APPROPRIATELY. SHE REPORTED PATIENT IS 1 OF 9 SIBLINGS AND THEY ARE AWARE OF PATIENT'S MEDICAL STATUS. SPOUSE REPORTED SHE AND PATIENT MET IN [facility] AND HAVE BEEN FOR 60 YEARS. 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 HIS WISHES ARE TO BE CREMATED AND [facility] LOCATED AT [address] [place] [address] IS IN CHARGE OF THE ARRANGEMENTS. SPOUSE
DECLINED BEREAVEMENT SERVICES AT THIS TIME EMOTIONAL SUPPORT PROVIDED
PATIENT MEETS [facility] CRITERIA FOR SN ASSESSMENTS, MANAGEMENT OF PAIN, AGITATION, AND INCREASED SECRETIONS THAT COULD NOT BE MANAGED AT HOME AND/OR IN AN OUTPATIENT SETTING. DISCHARGE PLANNING CONTINUES.
PLAN FOR NEXT VISIT: PROVIDE SUPPORTIVE SERVICES AND MONITOR FOR ADDITIONAL SERVICES ONCE A WEEK WHILE ON [facility] LEVEL OF CARE.
--- NOTE | 2025-03-06 18:39 | W.PN.DEATH ---
Pronouncement of
-
Called to see patient to pronounce.
No spontaneous heart tones or respirations noted.
Patient not responsive to verbal stimuli.
Patient is pronounced .
Time of : 18:38
Date of : 03/06/25
Cause of : Massive Cerebrovascular event
Family Notified: Yes
--- NOTE | 2025-03-06 18:40 | W.PN.UPDATE ---
Update Note
Progress Note Update
Patient passed
Spoke to and daughter. Informed.
--- NOTE | 2025-03-06 19:05 | W.DCSUMMARY ---
Discharge Summary
Discharge Data
Date of Admission: 03/04/25
Date of Discharge: 03/06/25
-
Pending Results: No
Hospital Course
Primary diagnosis:
Altered mental status/CVA
Acute hypoxemic respiratory failure
Shock -unclear cause
Hypokalemia
Hypertension
Neurogenic bladder with chronic An cath
Prolonged QTc
Secondary diagnoses:
History of CVA with left-sided hemiparesis
Dementia
Hyperlipidemia
Depression
Neuropathy
Hospital course:
84-year-old male with past medical history of CVA with left-sided hemiparesis, neurogenic bladder with suprapubic catheter presented to the ED from [facility] with altered mental status. Around 10:30 AM, staff noted an abrupt change in
mental status with left upper gaze deviation. They called EMS and he arrived completely obtunded and hypoxic and 86% saturation. He was placed on nonrebreather and later transition to mid flow nasal cannula. He was hypertensive, tachycardic,
tachypneic, afebrile. Potassium was 2.8. Head CT revealed large chronic right hemispheric infarct and large left frontal parietal region more consistent with recent infarct. Neurology noted he was not a TNK candidate and was provided aspirin.
Due to sudden onset and change, neurology also was concerned about status epilepticus and provided him with loading dose of Keppra and did a EEG. EEG revealed no seizure activity. Plan was to admit to IMU with CTA to evaluate hypoxemic respiratory
failure and further imaging stroke workup. Before he was able to get further testing, patient noted to be increasingly hypertensive with blood pressures up to the 200s over 180s. Before IV labetalol could be given, patient's blood pressure started
to drop to 40s over 20s at which point he was provided 2 L of normal saline and started on Levophed. Family was okay with pressors and consented to a central line for support, however they stated the patient was a DNR, DNI. Vasopressin was added
however blood pressure still remained labile. Oxygen requirements also increased to nonrebreather and max mid flow nasal cannula. Despite being on 2 pressors, patient's blood pressure still labile and goals of care discussion was brought up with
family. At this point, his UA came back and bacteria noted in the patient's urine and we discussed antibiotics and further fluids with the family. The stated that at this point, she knows her would not want all of this done and was
okay transitioning to comfort cares. He was admitted to the floors on comfort cares and weaned off pressors. Remarkably, his blood pressure stabilized and overnight there were no acute events. He was transitioned to inpatient hospice.
Today, the patient peacefully . was pronounced at 18:38. The family was made aware.
Discharge Plan
-
Referrals:
UNKNOWN - PT NOT,INTERVIEWE [Family Provider]
Prescriptions:
No Action
sennosides [senna] 8.6 mg Tablet
17.2 mg PO BID
acetaminophen [Tylenol] 325 mg Tablet
650 mg PO Q4HPRN MDD 3000 mg PRN (Reason: general discomfort)
atorvastatin [Lipitor] 20 mg Tablet
20 mg PO HS
valsartan 80 mg Tablet
80 mg PO DAILY
melatonin 3 mg Tablet
3 mg PO HS
clopidogrel [Plavix] 75 mg Tablet
75 mg PO DAILY
magnesium hydroxide [Milk of Magnesia] 400 mg/5 mL Suspension
2,400 mg PO [id number] PRN (Reason: if no BM after 9 shifts)
bisacodyl [Dulcolax (bisacodyl)] 10 mg Suppository
10 mg WI [id number] PRN (Reason: IF NO BM BY 12 SHIFTS)
Fleet Enema 19-7 gram/118 mL Enema
118 ml WI .[id number] PRN (Reason: if no Bm on 4th day)
gabapentin 100 mg Capsule
100 mg PO BID
diclofenac sodium 1 % Gel
0 g TOPICAL BID
polyethylene glycol 3350 17 gram Powder In Packet
17 g PO DAILY
zinc oxide 20 % Ointment
1 applic TOPICAL BID
duloxetine 60 mg capsule,delayed release(DR/EC)
60 mg PO DAILY
magnesium oxide 400 mg magnesium capsule
400 mg PO DAILY
[facility] 10 billion cell -200 mg Capsule, Sprinkle
1 cap PO DAILY
Duane Protect (zinc oxide) 12 % Cream
1 applic TOPICAL TID
Patient Comments:
12/26/2024, apply every shift.
nifedipine 30 mg Tablet Extended Release
30 mg PO DAILY Qty: 0 0RF
cholecalciferol (vitamin D3) [Vitamin D3] 125 mcg (5,000 unit) Tablet
1,250 mcg PO Q4W
Rx Instructions:
every 4 weeks on monday
Discharge Date and Time
Print Language: [place]
== END 2025-03-06 18:38 | disposition expired | DRG 951 ==
LOC: 2 NORTH 13:40
PROVIDERS: ADMITTING PHYSICIAN Hospitalist
DX: Z51.5 Encounter for palliative care (principal); I63.9 Cerebral infarction, unspecified; J96.01 Acute respiratory failure with hypoxia; I69.354 Hemiplegia and hemiparesis following cerebral infarction affecting left non-dominant side; F03.93 Unspecified dementia, unspecified severity, with mood disturbance; E87.6 Hypokalemia; I10 Essential (primary) hypertension; N31.9 Neuromuscular dysfunction of bladder, unspecified; F32.A Depression, unspecified; E78.5 Hyperlipidemia, unspecified; G62.9 Polyneuropathy, unspecified; Z66 Do not resuscitate; Z90.49 Acquired absence of other specified parts of digestive tract